=== PATIENT | male | born 1980 | race Caucasian/White ===

== ENCOUNTER 2019-12-29 08:30 | Emergency (ER) | payer OTHER ==
--- NOTE | 2019-12-29 09:30 | RAD REPORT ---
EXAM DESCRIPTION: CT - Head Brain Wo Cont - 12/29/2019 9:15 am CLINICAL HISTORY: headache, htn COMPARISON: No comparisons TECHNIQUE: All CT scans are performed using dose optimization technique as appropriate and may inclu de automated exposure control or mA/KV adjustment according to patient size. FINDINGS: No intracranial hemorrhage, hydrocephalus or extra-axial fluid collection.Areas of increas ed density is seen in the right the anterior sylvian fissure region measuring 7 mm.No areas of brain edema or evidence of midline shift. Basilar artery is atherosclerotic. The paranasal sinuses and mastoids are clear. The calvarium is intact. IMPRESSION: 7 mm area of increased density is noted right anterior sylvian fissure. This could poten tially represent an aneurysm. Recommend MRI brain and MRA [place] of [place] for further workup.
[2019-12-29] MEDS ORDERED: HYDRALAZINE HCL 20 MG/ML VIAL ONE (09:33)
--- NOTE | 2019-12-29 09:56 | RAD REPORT ---
EXAM DESCRIPTION: RAD - Chest Single View - 12/29/2019 9:33 am CLINICAL HISTORY: posey, hypertensive Chest pain. COMPARISON: No comparisons FINDINGS: Portable technique limits examination quality. The lungs are grossly clear. The heart is normal in size. No displaced fractures. IMPRESSION: No acute intrathoracic process suspected.
[2019-12-29 10:12] LABS: Absolute Lymphocytes (CBC) 1.8 K/uL (0.7-4.9); Basophils % 0.6 % (0-1.3); Hematocrit 43.5 % (39.6-49.0); Lymphocytes % 20.7 % (15.3-44.8); MPV 9.2 fL (7.6-11.3); Protime INR 0.9; RBC Red Blood Cell Count 5.12 M/uL (4.33-5.43)
[2019-12-29 10:13] LABS: ALT/SGPT 47 U/L (12-78); AST/SGOT 26 U/L (15-37); Albumin 4.1 g/dL (3.4-5.0); Alkaline Phosphatase 119 U/L (45-117); BUN Blood Urea Nitrogen 11 mg/dL (7-18); Bicarbonate 31 mmol/L (21-32); Bilirubin Direct 0.1 mg/dL (0-0.2); Bilirubin Total 0.6 mg/dL (0.2-1.0); Glucose Level 358 mg/dL (74-106); NT PRO-BNP 207 pg/mL (<125); Potassium 3.3 mmol/L (3.5-5.1); Protein, Total 7.9 g/dL (6.4-8.2); Sodium Level 135 mmol/L (136-145); Troponin (Emerg Dept Use Only) < 0.02 ng/mL (0.0-0.045)
[2019-12-29] MEDS ORDERED: cloNIDine HCL 0.1 MG TAB ONE (10:15)
[2019-12-29] MEDS ORDERED: ONDANSETRON 4 MG/2 ML VIAL ONE (11:01)
[2019-12-29] MEDS ORDERED: LABETALOL HCL 100 MG/20 ML ONE (11:04)
[2019-12-29] MEDS ORDERED: FENTANYL CITR 100 MCG/2 ML ONE (11:58)
[2019-12-29] MEDS ORDERED: PROMETHAZINE INJ 25 MG/ML AMP ONE (12:10)
--- NOTE | 2019-12-29 13:06 | ER ---
Nurse's Notes [facility] Name: John Levine Age: 39 yrs Sex: Male : 1980 Arrival Date: 12/29/2019 Time: 08:36 Bed 18 Private MD: Diagnosis: Non traumatic subarachnoid hemorrhage Presentation: 12/28 08:44 Chief complaint: Headache x 5 days. Hx of HTN, has been out of his lisinopril-HCTZ for hb 3 weeks. Coronavirus screen: Client presents with at least one sign or symptom that may indicate coronavirus-19. Standard/surgical mask placed on the client. Provider contacted for isolation considerations. Ebola Screen: No symptoms or risks identified at this time. Initial Sepsis Screen: Does the patient meet any 2 criteria? HR > 90 bpm. No. Patient's initial sepsis screen is negative. Does the patient have a suspected source of infection? No. Patient's initial sepsis screen is negative. Risk Assessment: Do you want to hurt yourself or someone else? Patient reports no desire to harm self or others. Onset of symptoms was December 23, 2019. 08:44 Method Of Arrival: Ambulatory hb 08:44 Acuity: [place] 2 hb Triage Assessment: 13:52 Headache History: Other Patient states has had hypertension since high school; "gets vg1 h/a every now and then". Historical: - Allergies: 08:47 No Known Allergies; hb - Home Meds: 08:47 lisinopril-hctz [Active]; hb - PMHx: 08:47 Hypertension; hb - PSHx: 08:47 None; hb - Immunization history:: Adult Immunizations up to date. - Social history:: Smoking status: Patient denies any tobacco usage or history of. Screenin:30 Abuse screen: Denies threats or abuse. Nutritional screening: No deficits noted. vg1 Tuberculosis screening: No symptoms or risk factors identified. Fall Risk No fall in past 12 months (0 pts). No secondary diagnosis (0 pts). IV access (20 points). Ambulatory Aid- None/Bed Rest/Nurse Assist (0 pts). Gait- Normal/Bed Rest/Wheelchair (0 pts) Mental Status- Oriented to own ability (0 pts). Total Brandt Fall Scale indicates No Risk (0-24 pts). Assessment: 09:30 General: Appears comfortable, Behavior is calm, cooperative. Pain: Complains of pain in vg1 head Pain currently is 10 out of 10 on a pain scale. Pain began 2-3 days ago. Neuro: Level of Consciousness is awake, alert, obeys commands, Oriented to person, place, time, situation. Cardiovascular: Capillary refill < 3 seconds in bilateral fingers Patient's skin is warm and dry. Respiratory: Airway is patent Respiratory effort is even, unlabored, Respiratory pattern is regular, symmetrical. GI: No signs and/or symptoms were reported involving the gastrointestinal system. GI: No signs and/or symptoms were reported involving the gastrointestinal system. Reports nausea. : No signs and/or symptoms were reported regarding the genitourinary system. EENT: No signs and/or symptoms were reported regarding the EENT system. Derm: Skin is pink, warm \\T\\ dry. Musculoskeletal: Range of motion: intact in all extremities. 10:29 Reassessment: Patient and/or family updated on plan of care and expected duration. Pain vg1 level reassessed. Patient is alert, oriented x 3, equal unlabored respirations, skin warm/dry/pink. Patient rates h/a 10/10. States cant lay head down because of the pain. States the back of the head hurts 'really bad'. Notified Ky ARGUETA. 10:40 Reassessment: Received verbal orders from Ky ARGUETA for Zofran 4mg IVP x 1. vg1 11:05 Reassessment: Notified acid blower of patients BP, asked to monitor patient. vg1 11:50 Reassessment: pt actively vomiting in MRI, provider notified, received new medication em orders. 12:43 Reassessment: Patient appears in no apparent distress at this time. Patient and/or vg1 family updated on plan of care and expected duration. Pain level reassessed. Patient is alert, oriented x 3, equal unlabored respirations, skin warm/dry/pink. Patient rates pain 3/10; states 'feels a little better'. Notified Ky ARGUETA of patients BP of 208/129. 13:47 Reassessment: Report was give to Payal BENITEZ at [facility]. Pt will be going vg1 to 7 [facility] 4 bed 10. 13:48 Reassessment: Patient appears in no apparent distress at this time. Patient and/or vg1 family updated on plan of care and expected duration. Pain level reassessed. Patient is alert, oriented x 3, equal unlabored respirations, skin warm/dry/pink. In bed resting with eyes closed. Patient rates pain 2/10. Notified patient that life flight will be here soon. 14:04 Reassessment: Gave report to [facility] life flight. 1 Vital Signs: 08:44 BP 247 / 140; Pulse 95; Resp 16; Temp 97.7; Pulse Ox 98% on R/A; Pain 10/10; hb 09:35 BP 225 / 145; Pulse 91; Resp 20; Pulse Ox 98% on R/A; Pain 10/10; vg1 09:45 BP 206 / 146; Pulse 97; vg1 09:45 BP 206 / 146; Pulse 89; Resp 20; Pulse Ox 97% on R/A; vg1 10:07 BP 229 / 130; Pulse 97; Resp 20; Pulse Ox 97% on R/A; vg1 10:29 BP 207 / 120; Pulse 101; Resp 20; Pulse Ox 99% on R/A; vg1 11:06 BP 187 / 113; Pulse 99; Resp 99; Pulse Ox 96% on R/A; em 12:45 BP 208 / 129; Pulse 87; Resp 20; Pulse Ox 97% on R/A; Pain 3/10; vg1 13:06 BP 190 / 115; Pulse 107; Resp 22; Pulse Ox 99% on R/A; em 13:11 BP 203 / 125; Pulse 112; Resp 20; Pulse Ox 98% on R/A; em 13:15 BP 184 / 119; Pulse 130; Resp 20; Pulse Ox 97% on R/A; em 13:17 BP 185 / 125; Pulse 126; Resp 20; Pulse Ox 97% on R/A; em 13:19 BP 205 / 115; Pulse 128; Resp 20; Pulse Ox 96% on R/A; em 13:22 BP 200 / 110; Pulse 130; Resp 20; Pulse Ox 100% on R/A; em 13:25 BP 196 / 109; Pulse 127; Resp 20; Pulse Ox 97% on R/A; em 13:32 BP 171 / 105; Pulse 132; Resp 20; Pulse Ox 96% on R/A; em 13:45 BP 194 / 95; Pulse 130; Resp 20; Pulse Ox 100% on R/A; vg1 10:07 [address] Ky ARGUETA about increase in patients BP vg1 ED Course: 08:36 Patient arrived in ED. rg4 08:46 Triage completed. hb 08:47 Arm band placed on. hb 08:57 Ky Pretty PA is PHCP. [facility] 08:57 Marcio Marquis MD is Attending Physician. [facility] 09:09 Patrica Isabel, RN is Primary Nurse. vg1 09:[address] via wheelchair. vg1 09:14 CT completed. Patient tolerated procedure well. Patient moved back from CT. sw 09:16 CT Head Brain wo Cont In Process Unspecified. EDMS 09:30 Patient has correct armband on for positive identification. groundwater monitoring technician on. Pulse vg1 ox on. NIBP on. Door closed. Lights dimmed. 09:33 XRAY Chest (1 view) In Process Unspecified. EDMS 09:35 Inserted saline lock: 20 gauge in right antecubital area, using aseptic technique. vg1 Blood collected. 09:35 Initial lab(s) drawn, by ma, sent to lab. vg1 09:47 EKG done, by ED staff, reviewed by Ky ARGUETA. em 11:05 Patient moved to MRI via wheelchair. vg1 11:34 MRI - Brain Wo Cont In Process Unspecified. EDMS 12:21 Sup. Sag. Sinus In Process Unspecified. EDMS 12:37 Patient moved back from radiology. vg1 12:55 initiated transfer to [facility]. bd 13:10 Inserted saline lock: 20 gauge in left antecubital area, using aseptic technique. em 13:27 ct and mri will be sent electronically by the radiology dept. bd 13:47 pt accepted in transfer to [facility] by dr padilla, admin approval given by vanessa Rushing. 13:52 No provider procedures requiring assistance completed. vg1 14:06 Patient transferred, IV remains in place. intact, No redness/swelling at site. vg1 Administered Medications: 09:35 Drug: hydrALAZINE 10 mg Route: IV; Rate: calculated rate; Site: right antecubital; vg1 09:45 Follow up: BP 206 / 146; Pulse 97 bpm; Response: No adverse reaction; Blood pressure is vg1 lowered 14:08 Follow up: IV Status: Completed infusion vg1 10:00 Drug: cloNIDine 0.1 mg Route: PO; vg1 13:28 Follow up: Response: No adverse reaction; Blood pressure is unchanged em 13:29 Follow up: Response: No adverse reaction; Blood pressure is unchanged em 11:00 Drug: Labetalol 10 mg Route: IVP; Site: right antecubital; em 13:30 Follow up: Response: No adverse reaction; Blood pressure is unchanged em 11:00 Drug: Zofran (Ondansetron) 4 mg Route: IVP; Site: right antecubital; em 13:30 Follow up: Response: No adverse reaction; Nausea is decreased em 11:48 Drug: fentaNYL (PF) 75 mcg Route: IVP; Site: right antecubital; em 12:07 Follow up: Response: No adverse reaction; Marked relief of symptoms; Pain is decreased; em RASS: Alert and Calm (0) 12:02 Drug: Promethazine 12.5 mg Route: IVP; Site: right antecubital; em 12:07 Follow up: Response: No adverse reaction; Marked relief of symptoms; Nausea is increasedem 13:11 Drug: Cardene 5 mg/hr Route: IV; Rate: calculated rate; Site: right antecubital; em 14:07 Follow up: Response: Blood pressure is lowered; IV Status: Infusion continued upon vg1 transfer 13:22 Not Given (Physician Discretion): Labetalol 10 mg IVP once em 13:27 Drug: NS 0.9% 500 ml Route: IV; Rate: bolus; Site: left antecubital; em 14:06 Follow up: Response: No adverse reaction; IV Status: Completed infusion; IV Intake: vg1 500ml Intake: 14:06 IV: 500ml; Total: 500ml. vg1 Outcome: 13:05 ER care complete, transfer ordered by MD. curtis 14:05 Transferred by helicopter to [facility], Transfer form completed. vg1 X-rays sent w/ patient. 14:05 Condition: stable 14:05 Instructed on the need for transfer, Demonstrated understanding of instructions. 14:08 Patient left the ED. vg1 Signatures: Dispatcher [employer] EDMS Diamond Chao Joel, PA PA jmm Munoz, Edgar, RN RN em Geetha Faust Heather, RN RN hb Chalo, Yadi rg4 Patrica Isabel RN RN vg1 Corrections: (The following items were deleted from the chart) 08:48 08:44 Acuity: [place] 3 hb hb 11:22 11:08 Reassessment: Received verbal orders from Ky ARGUETA for Zofran. vg1 vg1 12:36 10:40 Reassessment: Received verbal orders from Ky ARGUETA for Zofran. vg1 vg1 12:45 12:36 BP 131 / 103; Pulse 108bpm; Resp 16bpm; Pulse Ox 100% RA; vg1 vg1 12:46 12:43 Reassessment: Patient appears in no apparent distress at this time. Patient vg1 and/or family updated on plan of care and expected duration. Pain level reassessed. Patient is alert, oriented x 3, equal unlabored respirations, skin warm/dry/pink. Patient rates pain 3/10; states 'feels a little better'. Notified Ky ARGUETA of patients BP of 208/129 vg1
--- NOTE | 2019-12-29 13:06 | EDPHYS ---
Physician Documentation [facility] Name: John Levine Age: 39 yrs Sex: Male : 1980 Arrival Date: 12/29/2019 Time: 08:36 Bed 18 Private MD: ED Physician Marcio Marquis HPI: 12/28 09:11 This 39 yrs old Male presents to ER via Ambulatory with complaints of jmm Headache. 09:11 The patient complains of pain to the right frontal area, right side of the back of jmm head, right temporal area, right occipital area and right base of the skull. Onset: The symptoms/episode began/occurred gradually, 5 day(s) ago. Associated signs and symptoms: Pertinent negatives: fever. This is a 39 year old male with a history of htn that presents to the ED with complaints of right sided headache beginning 5 days ago after the patient states he experienced a panic attack. Patient has not taken his bp medications for 3 weeks due to cancelled appt. Denies chest pain, shortness of breath. . Historical: - Allergies: 08:47 No Known Allergies; hb - Home Meds: 08:47 lisinopril-hctz [Active]; hb - PMHx: 08:47 Hypertension; hb - PSHx: 08:47 None; hb - Immunization history:: Adult Immunizations up to date. - Social history:: Smoking status: Patient denies any tobacco usage or history of. ROS: 09:11 Constitutional: Negative for fever, chills, and weight loss, Respiratory: Negative for jmm shortness of breath, cough, wheezing, and pleuritic chest pain, Abdomen/GI: Negative for abdominal pain, nausea, vomiting, diarrhea, and constipation. 09:11 Cardiovascular: Positive for palpitations. 09:11 Neuro: Positive for headache. 09:11 All other systems are negative. Exam: 09:11 Constitutional: This is a well developed, well nourished patient who is awake, alert, jmm and in no acute distress. Head/Face: atraumatic. Eyes: EOMI, no conjunctival erythema appreciated ENT: Moist Mucus Membranes Neck: Trachea midline, Supple Chest/axilla: Normal chest wall appearance and motion. Cardiovascular: Regular rate and rhythm. No edema appreciated Respiratory: Normal respirations, no respiratory distress appreciated Abdomen/GI: Non distended, soft Back: Normal ROM Skin: General appearance color normal MS/ Extremity: Moves all extremities, no obvious deformities appreciated, no edema noted to the lower extremities Neuro: Awake and alert, normal gait Psych: Behavior is normal, Mood is normal, Patient is cooperative and pleasant 09:51 ECG was reviewed by the Attending Physician. [facility] Vital Signs: 08:44 BP 247 / 140; Pulse 95; Resp 16; Temp 97.7; Pulse Ox 98% on R/A; Pain 10/10; hb 09:35 BP 225 / 145; Pulse 91; Resp 20; Pulse Ox 98% on R/A; Pain 10/10; vg1 09:45 BP 206 / 146; Pulse 97; vg1 09:45 BP 206 / 146; Pulse 89; Resp 20; Pulse Ox 97% on R/A; vg1 10:07 BP 229 / 130; Pulse 97; Resp 20; Pulse Ox 97% on R/A; vg1 10:29 BP 207 / 120; Pulse 101; Resp 20; Pulse Ox 99% on R/A; vg1 11:06 BP 187 / 113; Pulse 99; Resp 99; Pulse Ox 96% on R/A; em 12:45 BP 208 / 129; Pulse 87; Resp 20; Pulse Ox 97% on R/A; Pain 3/10; vg1 13:06 BP 190 / 115; Pulse 107; Resp 22; Pulse Ox 99% on R/A; em 13:11 BP 203 / 125; Pulse 112; Resp 20; Pulse Ox 98% on R/A; em 13:15 BP 184 / 119; Pulse 130; Resp 20; Pulse Ox 97% on R/A; em 13:17 BP 185 / 125; Pulse 126; Resp 20; Pulse Ox 97% on R/A; em 13:19 BP 205 / 115; Pulse 128; Resp 20; Pulse Ox 96% on R/A; em 13:22 BP 200 / 110; Pulse 130; Resp 20; Pulse Ox 100% on R/A; em 13:25 BP 196 / 109; Pulse 127; Resp 20; Pulse Ox 97% on R/A; em 13:32 BP 171 / 105; Pulse 132; Resp 20; Pulse Ox 96% on R/A; em 13:45 BP 194 / 95; Pulse 130; Resp 20; Pulse Ox 100% on R/A; vg1 10:07 [address] Ky ARGUETA about increase in patients BP vg1 MDM: 09:01 Patient medically screened. [facility] 13:03 Data reviewed: vital signs, nurses notes. Counseling: I had a detailed discussion with [facility] the patient and/or guardian regarding: the historical points, exam findings, and any diagnostic results supporting the discharge/admit diagnosis, lab results, radiology results, the need to transfer to another facility. ED course: I discussed the patient with Dr. Soto whom accepted transfer. . 12/28 09:02 Order name: Basic Metabolic Panel; Complete Time: 10:14 [facility] 12/28 09:02 Order name: CBC with Diff; Complete Time: 10:48 [facility] 12/28 09:02 Order name: LFT's; Complete Time: 10:14 [facility] 12/28 09:02 Order name: Magnesium; Complete Time: 10:14 [facility] 12/28 09:02 Order name: NT PRO-BNP; Complete Time: 10:14 [facility] 12/28 09:02 Order name: PT-INR; Complete Time: 10:48 [facility] 12/28 09:02 Order name: Troponin (emerg Dept Use Only); Complete Time: 10:14 [facility] 12/28 09:02 Order name: XRAY Chest (1 view); Complete Time: 09:59 [facility] 12/28 09:03 Order name: CT Head Brain wo Cont; Complete Time: 09:37 [facility] 12/28 09:42 Order name: MRI - Brain Wo Cont; Complete Time: 13:19 [facility] 12/28 13:01 Order name: Urine Drug Screen; Complete Time: 13:45 [facility] 12/28 13:01 Order name: COVID-19 [facility] 12/28 13:32 Order name: Urine Dipstick--Ancillary (enter results); Complete Time: 13:45 12/28 09:02 Order name: EKG; Complete Time: 09:03 [facility] 12/28 09:02 Order name: Cardiac monitoring; Complete Time: 09:50 [facility] 12/28 09:02 Order name: EKG - Nurse/Tech; Complete Time: 09:50 [facility] 12/28 09:02 Order name: IV Saline Lock; Complete Time: 09:44 [facility] 12/28 12:06 Order name: Sup. Sag. Sinus; Complete Time: 13:19 [facility] 12/28 09:02 Order name: Labs collected and sent; Complete Time: : jmm 12/28 09:02 Order name: O2 Per Protocol; Complete Time: jmm 12/28 09:02 Order name: O2 Sat Monitoring; Complete Time: jmm EC:51 Rate is 92 beats/min. Rhythm is regular. QRS [place] is Normal. [place] interval is normal. QRS jmm interval is normal. QT interval is normal. No Q waves. T waves are Flattened in lead III. No ST changes noted. Reviewed by me. Administered Medications: 09:35 Drug: hydrALAZINE 10 mg Route: IV; Rate: calculated rate; Site: right antecubital; vg1 09:45 Follow up: BP 206 / 146; Pulse 97 bpm; Response: No adverse reaction; Blood pressure is vg1 lowered 14:08 Follow up: IV Status: Completed infusion vg1 10:00 Drug: cloNIDine 0.1 mg Route: PO; vg1 13:28 Follow up: Response: No adverse reaction; Blood pressure is unchanged em 13:29 Follow up: Response: No adverse reaction; Blood pressure is unchanged em 11:00 Drug: Labetalol 10 mg Route: IVP; Site: right antecubital; em 13:30 Follow up: Response: No adverse reaction; Blood pressure is unchanged em 11:00 Drug: Zofran (Ondansetron) 4 mg Route: IVP; Site: right antecubital; em 13:30 Follow up: Response: No adverse reaction; Nausea is decreased em 11:48 Drug: fentaNYL (PF) 75 mcg Route: IVP; Site: right antecubital; em 12:07 Follow up: Response: No adverse reaction; Marked relief of symptoms; Pain is decreased; em RASS: Alert and Calm (0) 12:02 Drug: Promethazine 12.5 mg Route: IVP; Site: right antecubital; em 12:07 Follow up: Response: No adverse reaction; Marked relief of symptoms; Nausea is increasedem 13:11 Drug: Cardene 5 mg/hr Route: IV; Rate: calculated rate; Site: right antecubital; em 14:07 Follow up: Response: Blood pressure is lowered; IV Status: Infusion continued upon vg1 transfer 13:22 Not Given (Physician Discretion): Labetalol 10 mg IVP once em 13:27 Drug: NS 0.9% 500 ml Route: IV; Rate: bolus; Site: left antecubital; em 14:06 Follow up: Response: No adverse reaction; IV Status: Completed infusion; IV Intake: vg1 500ml Disposition: 15:20 Co-signature as Attending Physician, Marcio Marquis MD I agree with the assessment and kdr plan of care. Disposition: 12/29/19 13:[address] [facility]. Diagnosis is Non traumatic subarachnoid hemorrhage. - Reason for transfer: Higher level of care. - Accepting physician is Charles. - Condition is Stable. - Problem is new. - Symptoms are unchanged. Signatures: Dispatcher [employer] EDKS Marcio Marquis MD MD [facility] Ky Pretty PA PA [facility] Paul Fitzgerald, RN RN Lianna Serna, RN RN Patrica Jeffries, RN RN vg1 Corrections: (The following items were deleted from the chart) 12:05 11:56 Brain Wo Cont+MRI.RAD.BRZ ordered. [facility] 14:08 13:05 12/29/2019 13:[address] [facility]. vg1 Diagnosis is Non traumatic subarachnoid hemorrhage. Reason for transfer: Higher level of care. Accepting physician is Charles. Condition is Stable. Problem is new. Symptoms are unchanged. [facility]
--- NOTE | 2019-12-29 13:07 | RAD REPORT ---
EXAM DESCRIPTION: MRI - Brain Wo Cont - 12/29/2019 12:21 pm CLINICAL HISTORY: Headache COMPARISON: Head CT December 29, 2019 TECHNIQUE: Axial, sagittal, and coronal magnetic images of the brain were obtained. Contrast was not requested FINDINGS: Images are degraded by patient motion artifact A a small areas of curvilinear signal are present within the sulci of the right temporal and right pa rietal lobes. These areas have increased signal on T1 weighted sequences compatible with subarachnoid blood. . Increased signal is present within the right cerebral cortical veins A 7 millimeter area of heterogeneous signal is present within the anterior right temporal lobe. It co ntains areas of low signal on T2 weighted sequences. Diffusion-weighted/ADC mapping does not reveal evidence of acute infarction. The ventricles are normal caliber. IMPRESSION: Increased signal within the right cerebral cortical veins likely indicating thrombus 7 millimeter area of abnormal signal within the right temporal lobe may represent a partially thrombo sed vein. Other considerations include cavernous angioma and partially thrombosed aneurysm/AVM Small amount of right cerebral subarachnoid blood The exam was discussed with Ky in the Emergency Room at 12:44 p.m. December 29, 2019
[2019-12-29] MEDS ORDERED: Nicardipine/NS 25 MG/250 ML KIT IV ONE (13:11)
--- NOTE | 2019-12-29 13:13 | RAD REPORT ---
EXAM DESCRIPTION: MRI - Sup. Sag. Sinus - 12/29/2019 12:34 pm CLINICAL HISTORY: Headache COMPARISON: MRI brain December 29, 2019 TECHNIQUE: Magnetic resonance angiogram of the brain performed 3D MIPS reconstruction performed FINDINGS: The superior sagittal, inferior sagittal, straight sinus, transverse sinus and sigmoid sin us veins are patent There is asymmetric signal within the right cerebral cortical veins when compared to the left . IMPRESSION: Asymmetric signal within the right cerebral cortical veins. Given that the MRI brain on the same date demonstrated increased signal within some of the right cerebral cortical veins this pro bably indicates thrombus
[2019-12-29 13:33] LABS: Barbiturates NEGATIVE (NEGATIVE); Benzodiazepines NEGATIVE (NEGATIVE); Cocaine NEGATIVE (NEGATIVE); METHAMPHETAM NEGATIVE (NEGATIVE); Methadone NEGATIVE (NEGATIVE); Opiates NEGATIVE (NEGATIVE); Phencyclidine NEGATIVE (NEGATIVE); THC Cannibis NEGATIVE (NEGATIVE)
[2019-12-29] MEDS ORDERED: NA CHLORIDE 0.9% 500 ML ONE (13:37)
[2019-12-29 13:43] LABS: Urine Blood NEGATIVE (NEG); Urine Glucose 2+ (NEG); Urine Protein 1+ (NEG)
[2019-12-29 15:32] VITALS: TEMP 97.7
[2019-12-29 16:00] VITALS: BP 194/95; O2SAT 100
--- NOTE | 2020-01-01 07:51 | EKG ---
Test Date: 2019-12-29 Test Time: 09:47:13 Signals Intelligence Analyst: LEANNE MEASUREMENT RESULTS: Intervals: Rate: 92 TN: 130 QRSD: 98 QT: 364 QTc: 450 [place]: P: 11 TN: 130 QRS: -1 T: 38 INTERPRETIVE STATEMENTS: Normal sinus rhythm Moderate voltage criteria for LVH, may be normal variant Borderline ECG No previous ECG available for comparison Electronically Signed On 01-01-20 07:42:13 FINANCIAL SERVICES PROFESSIONAL by Tre Quan
== END 2019-12-29 14:08 | disposition short-term general hospital (02) ==
LOC: ER 08:30
DX: I60.9 Nontraumatic subarachnoid hemorrhage, unspecified (principal); I10 Essential (primary) hypertension
CPT/HCPCS: 96365; 93005; 85025; 80048; 36415; 83735; 85610; 80076; 80307 ×8; 81003; 84484; 83880; 70450; 71045; 70551; 70544; 96375; 99285; 96366; J0360; J2550; J3010; J7040; J2405

== ENCOUNTER 2020-04-29 07:03 | Emergency (ER) | payer OTHER ==
--- OUTSIDE RECORDS SUMMARY | 2020-04-29 07:08 | XMS REPORT | Continuity of Care Document ---
:1980 Author Organization [facility] t Address [address] [place] [address] Care Team Providers Name Role Phone Darcy Minaya MD Attending Clinician Unavailable Helena SWARTZ, I. Attending Clinician Kirstin Giang MD Attending Clinician Virtual Attending Clinician Unavailable Pito SWARTZ, Joseph Attending Clinician Sherley SWARTZ, Tesha Attending Clinician DARCY MINAYA Attending Clinician Unavailable DARCY MINAYA Admitting Clinician Unavailable Payers Payer Name Policy Type Policy Number Effective Date Expiration Date S clotilde OTHER-COMMERC [id number] [facility] - IALGENERIC 00:00:00 [facility] Center COMMERCIALxxx [id number]- Present Problems Condition Condition Condition Status Onset Resolution Last Treating Co mments Source Name Details Category Date Date Treatment Clinician Date Acute Acute Disease Active 2019-[address] [facility] encephalop encephalop 03-02 Nicole kes - athy athy 00:00: Medical 00 Center Uncontroll Uncontroll Disease Active 2019-[address] ed type 2 ed type 2 03-01 Nicoleke s - diabetes diabetes 00:00: Medica l mellitus mellitus 00 Center with with hyperglyce hyperglyce roberto roberto Hypertensi Hypertensi Disease Active 2019-[address] ve ve 02-28 Jensen - emergency emergency 00:00: Medi yris 00 Center Cerebral Cerebral Disease Active 2019-02 [facility]28 [facility] Center Hyponatrem Hyponatrem Disease Active 2019-[address] ia ia 1-13 [facility] - 00:[facility]: Medical 00 Center Headache Headache Disease Active 2019-02 [facility]28 [facility] - 00:00: Medical 00 [place] Subarachno Subarachno Disease Active 2019- C JOSÉ MIGUEL Max id id 02-27 [facility] - hematoma hematoma 00:00: Medica 00 [place] Seizure Seizure Disease Active [facility] Medical [place] Allergies, Adverse Reactions, Alerts This patient has no known allergies or adverse reactions. Social History Social Habit Start Date Stop Date Quantity Comments Source History [facility] Alcohol Std Drinks [facility] History [facility] - Alcohol Binge Medical Marciano ter Sex Assigned At [facility] kes [facility] Tobacco use and 2020-01-02 2020-01-[address] Nicole kes - exposure 00:00:00 00:00:00 [facility] Alcohol intake 2020-01-02 2020-01-[address] [facility] - 00:00:00 00:00:00 non-drinker Medical Cente r (finding) History [facility] 2019-12-29 2019-12-[address] [facility] - Alcohol Frequency 00:00:00 00:00:00 [facility] Center History [facility] 2019-12-29 2019-12-[address] [facility] - Financial 00:00:00 00:00:00 [facility] Center History [facility] Food 2019-12-29 2019-12-[address] [facility] - Worry 00:00:00 00:00:00 [facility] Center History [facility] Food 2019-12-29 2019-12-[address] [facility] - Scarcity 00:00:00 00:00:00 Medical Center History [facility] 2019-12-29 2019-12-[address] [facility] - Transport Med 00:00:00 00:00:[address] History [facility] 2019-12-29 2019-12-[address] [facility] - Transport Non-Med 00:00:00 00:00:00 Medical Center Smoking Status Start Date Stop Date Source Never smoker [facility] kes M edical Center Medications Ordered Filled Start Stop Current Ordering Indication Dosage Frequency Signature Comments Components Source Medication Medication Date Date Medication? Clinician (SIG) Name Name lisinopriL 2019-02- No 40mg QD Take [address] (PRINIVIL,Z 03-09 tablet (40 L ukes - ESTRIL) 40 00:00: 23:59 mg total) M edical MG tablet 00 :00 by mouth Center daily. NIFEdipine 2019-02 No 30mg QD Take [address] [facility] [address] (ADALAT CC) 03-09 tablet (30 L ukes - 30 MG 24 hr 00:00: 23:59 mg total) Medical tablet 00 :00 by mouth Center daily. lisinopril- 2019-02 No hypertensio 1{tbl} QD Take [address] hydroCHLORO 03-08 n tablet by Nicole kes - thiazide 09:53: 00:00 mouth Medical (PRINZIDE,Z 53 :00 daily Center ESTORETIC) Patient 10-12.5 mg stated he per tablet last took medication 3 weeks ago. Unsure of exact date. . insulin 2019-02 Yes 10U Q.5D Inject 10 [facility] glargine - Units [facility] - (Lantus 00:00: subcutaneo Medi yris Solostar 00 usly 2 Center U-100 (two) Insulin) times 100 unit/mL daily. (3 mL) InPn needles, 2019-02 Yes 1{each} Q.5D [address] [facility] insulin 03-08 Miscellane [facility] - disposable 00:00: ous route Me dical (Insulin 00 2 (two) Center Pen times Western) daily. Ndle lancets 2019-02 Yes Use to [facility] Misc 03-08 check [facility] - 00:00: blood Medical 00 sugar 3 Center times per day. blood sugar 2019-02 Yes 1{each} Q.[id number] 1 each by [facility] diagnostic 03-08 [id number] [facility]ellane [facility] - (glucose 00:00: 3D ous route Medi yris blood) Strp 00 3 (three) Marciano ter times daily To check blood sugar. carvediloL 2019-02 No 25mg Q.5D Take [address] [facility] [address] (COREG) 25 03-08 tablet (25 Nicole kes - MG tablet 00:00: 23:59 mg total) Me dical 00 :00 by mouth 2 Center (two) times daily. hydrALAZINE 2019-02 No 50mg Take 1 [facility] (APRESOLINE 03-08 tablet (50 L ukes - ) 50 MG 00:00: 23:59 mg total) Medi yris tablet 00 :00 by mouth Center every 8 (eight) hours. valproic 2019-02- No 1000mg Take 4 [facility] acid 03-08 capsules [facility] - (DEPAKENE) 00:00: 23:59 (1,000 mg M edical 250 mg 00 :00 total) by Center capsule mouth every 12 (twelve) hours. blood-gluco 2019-02- No Use as [facility] St se meter 03-08 instructed Luke s - kit 00:00: 23:59 . Medical 00 :00 [place] Vital Signs Vital Name Observation Time Observation Value Comments Source Systolic blood 2020-01-07 12:00:00 116 mm[Hg] [facility] pressure [facility] Diastolic blood 2020-01-07 12:00:00 65 mm[Hg] [facility] Heart rate 2020-01-07 12:00:00 76 /min [facility] Body temperature 2020-01-07 12:00:00 36.33 Mary Kate [facility] Respiratory rate 2020-01-07 12:00:00 19 /min [facility] Oxygen saturation in 2020-01-07 12:00:00 98 /min [facility] Arterial blood by Medical Ce nter Pulse oximetry Body height 2019-12-30 15:08:00 181.6 cm [facility] Body weight 2019-12-29 15:00:00 141.7 kg [facility] BMI 2019-12-29 15:00:00 42.96 kg/m2 [facility] Procedures Procedure Date / Time Performing Clinician Source Performed POCT-GLUCOSE METER 2020-01-07 11:47:00 Lazara Giang [facility] POCT-GLUCOSE METER 2020-01-07 07:54:00 Lazara Giang [facility] BASIC METABOLIC PANEL (7) 2020-01-07 04:48:00 Sirena Mccann CH I [facility] CBC W/PLT COUNT & AUTO 2020-01-07 04:48:00 Sirena Mccann [facility] S [facility] DIFFERENTIAL [facility] MAGNESIUM 2020-01-07 04:48:00 MccannSirena [facility] PHOSPHORUS 2020-01-07 04:48:00 MccannSirena [facility] POCT-GLUCOSE METER 2020-01-06 21:04:00 Rahat [facility] POCT-GLUCOSE METER 2020-01-06 16:55:00 Rahat, [facility] POCT-GLUCOSE METER 2020-01-06 11:56:00 Rahat, [facility] POCT-GLUCOSE METER 2020-01-06 08:32:00 Rahat [facility] BASIC METABOLIC PANEL (7) 2020-01-06 05:30:00 Ramy Sirena R CH I [facility] MAGNESIUM 2020-01-06 05:30:00 Ramy Sirena Castillo [facility] PHOSPHORUS 2020-01-06 05:30:00 Ramy Sirena Castillo [facility] CBC W/PLT COUNT & AUTO 2020-01-06 04:35:00 Ramy Sirena Jonathan [facility] S [facility] POCT-GLUCOSE METER 2020-01-05 21:22:00 Milana Minaya [facility] POCT-GLUCOSE METER 2020-01-05 18:41:00 AmbrocioMilana luna [facility] POCT-GLUCOSE METER 2020-01-05 13:12:00 Anatoly Malik I. CH I [facility] LIMITED 2D ECHOCARDIOGRAM 2020-01-05 12:26:00 Kike Rojas CH [facility] [place] CEREBRAL 4 VESSEL 2020-01-05 11:25:00 Ramy Sirena Castillo [facility] POCT-GLUCOSE METER 2020-01-05 07:13:00 Anatoly Malik I. CH I [facility] BASIC METABOLIC PANEL (7) 2020-01-05 04:36:00 Ramy Sirena R [facility] CBC W/PLT COUNT & AUTO 2020-01-05 04:36:00 Sirena Mccann [facility]I S t [facility] MAGNESIUM 2020-01-05 04:36:00 Sirena Mccann [facility] PHOSPHORUS 2020-01-05 04:36:00 Sirena Mccann CHI [facility] POCT-GLUCOSE METER 2020-01-04 21:07:00 Anatoly Malik I. CH I [facility] POCT-GLUCOSE METER 2020-01-04 16:25:00 Anatoly Malik CH I [facility] SARS-COV2/RT-PCR ([facility] & 2020-01-04 15:31:00 Sirena Mccann [facility] REF LABS) [facility] MR BRAIN WITH & WITHOUT IV 2020-01-04 13:46:00 Jin Nicole [facility] POCT-GLUCOSE METER 2020-01-04 11:29:00 Anatoly Malik CH I [facility] POCT-GLUCOSE METER 2020-01-04 07:20:00 Anatoly Malik CH I [facility] BASIC METABOLIC PANEL (7) 2020-01-04 03:50:00 Sirena Mccann CH I [facility] CBC W/PLT COUNT & AUTO 2020-01-04 03:50:00 Sirena Mccann [facility] S [facility] MAGNESIUM 2020-01-04 03:50:00 Sirena Mccann [facility] PHOSPHORUS 2020-01-04 03:50:00 Sirena Mccann [facility] POCT-GLUCOSE METER 2020-01-03 20:57:00 Anatoly Malik I. CH I [facility] METANEPHRINES, 24 HOUR 2020-01-03 16:41:00 Sirena Mccann [facility] POCT-GLUCOSE METER 2020-01-03 16:28:00 Anatoly Malik I. CH I [facility] POCT-GLUCOSE METER 2020-01-03 11:35:00 Anatoly Malik I. CH I [facility] POCT-GLUCOSE METER 2020-01-03 08:16:00 Anatoly Malik CH, I [facility] POCT-GLUCOSE METER 2020-01-03 06:10:00 Anatoly Malik CH I [facility] BASIC METABOLIC PANEL (7) 2020-01-03 03:38:00 Sirena Mccann R CH I [facility] CBC W/PLT COUNT & AUTO 2020-01-03 03:38:00 Sirena Mccann [facility] S t [facility] MAGNESIUM 2020-01-03 03:38:00 Sirena Mccann [facility] PHOSPHORUS 2020-01-03 03:38:00 Sirena Mccann [facility] POCT-GLUCOSE METER 2020-01-02 23:31:00 Anatoly Malik CH I [facility] HC TCD COMPLETE 2020-01-02 18:55:00 Kike Rojas [facility] POCT-GLUCOSE METER 2020-01-02 15:45:00 Milana Minaya [facility] SODIUM 2020-01-02 15:43:00 Isaac Villegas [facility] POTASSIUM 2020-01-02 15:43:00 Kike Rojas [facility] MAGNESIUM 2020-01-02 15:43:00 Kike Rojas [facility] POCT-GLUCOSE METER 2020-01-02 11:39:00 Milana Minaya [facility] EEG 12-26 HR CONTINUOUS 2020-01-02 06:09:00 Delores Uribe [facility] - MONITORING WITH VIDEO Medical Ce nter POCT-GLUCOSE METER 2020-01-02 05:57:00 Milana Minaya [facility] BASIC METABOLIC PANEL (7) 2020-01-02 04:50:00 Sirena Mccann CH [facility] CBC W/PLT COUNT & AUTO 2020-01-02 04:50:00 Sirena Mccann [facility] S t [facility] MAGNESIUM 2020-01-02 04:50:00 Sirena Mccann [facility] PHOSPHORUS 2020-01-02 04:50:00 Sirena Mccann [facility] US RENAL WITH DOPPLER 2020-01-02 04:15:00 Prasanna Mejia [facility] POCT-GLUCOSE METER 2020-01-02 01:31:00 Ambrociojeremy [facility] POCT-GLUCOSE METER 2020-01-01 22:38:00 [facility] POCT-GLUCOSE METER 2020-01-01 16:56:00 [facility] HEPATIC FUNCTION PANEL 2020-01-01 14:17:00 Prasanna Mejia [facility] POCT-GLUCOSE METER 2020-01-01 12:08:[facility] BRAIN WITHOUT IV 2020-01-01 10:12:00 Fei Menezes [facility] POCT-GLUCOSE METER 2020-01-01 06:25:00 Ambrociojeremy [facility] BASIC METABOLIC PANEL (7) 2020-01-01 04:59:00 Sirena Mccann [facility] CBC W/PLT COUNT & AUTO 2020-01-01 04:59:00 Ramy Sirena R [facility] MAGNESIUM 2020-01-01 04:59:00 Ramy Sirena Jonathan [facility] PHOSPHORUS 2020-01-01 04:59:00 Ramy [facility] Jonathan [facility] TSH/FREE T4 IF INDICATED 2020-01-01 04:59:00 Prasanna Mejia [facility] POCT-GLUCOSE METER 2020-01-01 00:38:00 Ambrociojeremy [facility] POCT-GLUCOSE METER 2019-12-31 20:52:00 [facility] HC VENOUS DOPPLER EXT UNI 2019-12-31 20:40:00 Delores Uribe CH I [facility] URINALYSIS WITH 2019-12-31 18:06:00 Prasanna Mejia [facility] - MICROSCOPIC IF INDICATED [facility] URINALYSIS MICROSCOPIC 2019-12-31 18:06:00 Jackie Mims Ubai d [facility] METANEPHRINES 2019-12-31 17:39:00 Prasanna Mejia [facility] CATECHOLAMINES, 2019-12-31 17:39:00 Prasanna Mejia [facility] - FRACTIONATED, PLASMA Medical [address] ter POCT-GLUCOSE METER 2019-12-31 16:21:00 Milana Minaya [facility] POCT-GLUCOSE METER 2019-12-31 11:30:00 Milana Minaya [facility] BASIC METABOLIC PANEL (7) 2019-12-31 08:21:00 Sirena Mccann [facility] CBC W/PLT COUNT & AUTO 2019-12-31 08:21:00 Ramy Sirena [facility] MAGNESIUM 2019-12-31 08:21:00 Ramy [facility] PHOSPHORUS 2019-12-31 08:21:00 Ramy [facility] ALDOSTERONE 2019-12-31 08:21:00 Ramy [facility] RENIN, PLASMA 2019-12-31 08:21:00 [facility]ORT[facility] 2019-12-31 08:21:00 [facility] POCT-GLUCOSE METER 2019-12-31 06:50:00 Rei Milana [facility] POCT-GLUCOSE METER 2019-12-31 02:23:00 Rei [facility] POCT-GLUCOSE METER 2019-12-30 17:08:00 Rei [facility] BASIC METABOLIC PANEL (7) 2019-12-30 15:15:00 Kike Rojas [facility] [place] CEREBRAL 4 VESSEL 2019-12-30 13:55:00 Kike Rojas [facility] ANGIOGRAM [facility] HEMOGLOBIN A1C 2019-12-30 10:11:[address] [facility] POCT-GLUCOSE METER 2019-12-30 07:06:00 Milana Minaya [facility] PROTHROMBIN TIME/INR 2019-12-30 04:01:00 Macario Beckham [facility] APTT 2019-12-30 04:01:00 Macario Beckham [facility] FIBRINOGEN 2019-12-30 04:01:00 Bhavani Ndotoniel Herman [facility] BASIC METABOLIC PANEL (7) 2019-12-30 04:01:00 Sirena Mccann I [facility] CBC W/PLT COUNT & AUTO 2019-12-30 04:01:00 Sirena Mccann [facility] MAGNESIUM 2019-12-30 04:01:00 Sirena Mccann [facility] PHOSPHORUS 2019-12-30 04:01:00 Sirena Mccann [facility] POCT-GLUCOSE METER 2019-12-29 23:26:00 Milana Minaya [facility] ABORH, MANUAL 2019-12-29 19:37:00 Pooja Thompson [facility] XR CHEST 1 VIEW 2019-12-29 18:08:00 Kike Rojas [facility] PORTABLE/BEDSIDE [facility] SARS-COV2/RT-PCR ([facility] & 2019-12-29 18:03:00 Kike Rojas [facility] - REF LABS) [facility] PROTHROMBIN TIME/INR 2019-12-29 18:03:00 Sher Mccann [facility] Medical Ce nter APTT 2019-12-29 18:03:[address] [facility] [place] Medical Ce nter BASIC METABOLIC PANEL (7) 2019-12-29 18:03:00 Sher Mccann, [facility] Medical Ce nter MAGNESIUM 2019-12-29 18:03:00 Sher Mccann, [facility] Medical Ce nter PHOSPHORUS 2019-12-29 18:03:00 Sher Mccann, [facility] Ce nter CBC W/PLT COUNT & AUTO 2019-12-29 18:03:00 Sher Mccann, [facility] - DIFFERENTIAL [facility] nter TYPE AND SCREEN, AUTOMATED 2019-12-29 18:03:00 Sirena Mccann HI [facility] CTA BRAIN 2019-12-29 16:35:00 Sofia [facility] CT/CTA CAROTID 2019-12-29 16:35:00 Sofia [facility] CARDIAC CATH REPORT - SCAN 2019-12-29 00:00:00 Provider, Default [facility] NEUROPHYSIOLOGY REPORT - 2019-12-29 00:00:00 Provider, Default C [facility] Plan of Care Planned Activity Planned Date Details Comments Source Future Scheduled 2020-03-[address] [facility] k[facility] - Test 00:00:00 [facility] (procedure) [code = 46573866] Future Scheduled 2020-02-[address] [facility] - Test 00:00:00 (12+) [code = [facility] Center DEPRESSION SCREENING (12+)] Future Scheduled 2019-10-18 INFLUENZA VACCINE (#1) [facility] - Test 00:00:00 [code = INFLUENZA Medical Ce nter VACCINE (#1)] Future Scheduled [address] [facility] - Test 00:00:00 (procedure) [code = [facility] 57800589] Future Scheduled 2001 DTAP/TDAP/TD VACCINES [facility] - Test 00:00:00 (1 - Tdap) [code = Medical C enter DTAP/TDAP/TD VACCINES (1 - Tdap)] Future Scheduled 2000 HEPATITIS C SCREENING [facility] - Test 00:00:00 [code = HEPATITIS C Medical Center SCREENING] Future Scheduled 1992 Urine screening for [facility] [place] - Test 00:00:00 protein (procedure) Medical Center [code = 662161500] Future Scheduled 1992 DIABETIC EYE EXAM [facility] - Test 00:00:00 [code = DIABETIC EYE Medical Center EXAM] Future Scheduled [address] [facility] - Test 00:00:00 examination Medical Center (regime/therapy) [code = 442550642] Future Scheduled [address] [facility] - Test 00:00:00 0-64 YRS (1 of 1 - Medical C enter PPSV23) [code = PNEUMOCOCCAL VACCINE 0-64 YRS (1 of 1 - PPSV23)] Results Test Description Test Time Test Comments Results Result Comments Source Catecholamines, Fractionated, plasma 2020-01-12 08:17:00 Test Item Value Reference Range Interpretation Comme nts EPINEPHRINE (test code = 58 pg/mL A d ilution of the specimen was ) required to per form the analysis. Speci menquantity insufficient to analyze undiluted. This test was developed and i ts analytical performance kamila racteristics havebeen determ ined by [facility].It has not been cleared or approved by FDA. This assay has been validatedpursua nt to the CLIA regulations and is used for clinical purpos es. Norepinephrine (test code = 733 pg/mL A dilution of the specimen was ) required to per form the analysis. Speci menquantity insufficient to analyze undiluted. This test was developed and i ts analytical performance kamila racteristics havebeen determ ined by [facility].It has not been cleared or approved by FDA. This assay has been validatedpursua nt to the CLIA regulations and is used for clinical purpos es. DOPAMINE (test code = 45 pg/mL H A dilu tion of the specimen was ) required to per form the analysis. Speci menquantity insufficient to analyze undiluted. This test was developed and i ts analytical performance kamila racteristics havebeen determ ined by [facility].It has not been cleared or approved by FDA. This assay has been validatedpursua nt to the CLIA regulations and is used for clinical purpos es. Total Catecholamines 836 pg/mL A dilut ion of the specimen was (Nor+Epi) (test code = requi red to perform the 2054-03) analysis. Speci menquantity insufficient to analyze undiluted. Adul t Reference Ranges for Vioeltta cholamines, Plasma Epinephr ine Supine: <50 pg /mL Uprigh t: <95 pg/mL Norepinephrine Supine: 112-658 pg/mL Upright: 21 7-1109 pg/mL Dopamine Supine: <10 pg/mL Upright: <20 pg /mL Total (N+E+D) Supine: 123-671 pg/mL Upright: 24 2-1125 pg/mL Pediatric Refer ence Ranges for Catecholamines, Plasma Due to stress, plasma catecholamine levels are gene rally unreliablein in fants and small children. Urina ry catecholamine a ssays are morereliable. E pinephrine 3-15 Years Supine: < or = 464 pg/mL Upright: N o Reference Range Available Norepinephrine 3-15 Years Supine: < or = 1251 pg/ mL Upright : No Reference Range Available Dopamine 3-15 Years Supine: <60 pg/mL Upright: No Ref erence Range Available Pedia tric data from J [employer] (5 613) 019:304-307. Th is test was developed and i ts analytical performance kamila racteristics havebeen determ ined by [facility].It has not been cleared or approved by FDA. This assay has been validatedpursua nt to the CLIA regulations and is used for clinical purpos es. JACKSON (test code = JACKSON) Performing Lab EZ [facility] [address] [place] [address] Yelena Esquivel MD, PhD, MARCIANO Lab Interpretation (test Abnormal code = 54134-8) [facility] - [id number] 11:47:51 Ordered by an unspecified provider.[facility], ANGIOGRAM, [id number] 09:54:00For 01/04 1000Reason for exam:->subarachnoid hemorrhageAnesthesia:->[facility] : 1980 Sex: MFINAL REPORT Date of Procedure: 01/05/2020 Surgeon: Gerry Lemon BBSAssistant: Kike Rojas MD Pre-operative diagnosis: Subarachnoid hemorrhagePost-operative diagnosis: Subarachnoid hemorrhage Procedure: Diagnostic cerebral angiogram Anesthesiologist: per anesthesia recordsAnesthesia Type: MAC Complications: None apparent Vessel injections:1. Right femoral artery2. Right internal carotid artery3. Left internal carotid artery Indication for procedure: Patient is [id number] man with hypertension and obesity, who presented with several days of headache, found tohave trace sylvian subarachnoid hemorrhage and cortical subarachnoid hemorrhage on the right side. Adiagnostic cerebral angiogram was done on admission which was negative for vascular malformations oraneurysms. He presents today for follow-up diagnostic cerebral angiogram. Procedure in Detail: AngiogramFollowing explanation of the benefits, risks and alternatives for the procedure, informed consentwas obtained from the patient. The risks including but not limited to stroke, intracranial hemorrhag e, vascular injury to the cervical or access vessels were discussed. A time-out was performed. Bothgroins and wrists were prepped in the usual sterile fashion using Chloroprep, and sterilely draped.Access was initiated at the right femoral artery under ultrasound guidance (see medical chart for images) and a 6 Dominican sheath was placed and maintained on heparinized flush. A 6 Dominican angled curve diagnostic catheter was introduced and brought into the aortic arch under fluoroscopic guidance. The diagnostic catheter was used to catheterize the right internal carotid artery, left internal carotid artery, left vertebral artery. Upon each successive selective catheterization, digital subtraction angiography using the appropriate rate and volume of contrast in multiple projections was performed. After adequate visualization of all vessels all sheaths and catheters were removed and a Angio-Seal was used for femoral artery hemostasis. The patient was transported to neuro ICU in stable condition Findings: Right Femoral Artery (AP and Lateral)-The sheath enters above the femoral bifurcation. The femoral artery and bifurcation are widely patent without evidence of ulceration or stenosis. Right Internal Carotid Artery (AP, Lateral, Oblique)-The cervical carotid artery is patent without areas of stenosis, dissection or ulceration; and is without branches -The petrous carotid artery is patent withoutareas of stenosis, dissection or ulceration the mandibulovidian artery is not visualized, no petrosal segment aneurysms -The cavernous carotid artery is patent without areas of stenosis, dissection, orulceration, meningohypophyseal trunk and inferolateral trunks are not visualized, there are no cavernous segment aneurysms -The supraclinoidal carotid artery, the opthalmic, communicating, and choroidal segments are patent without areas of stenosis and without aneurysms. The posterior communicating artery is normal sized, the anterior choroidal artery is visualized. The A1 and M1 segments are visualized and are without stenosis or vasospasm. -The ADY fill physiologically throughout their territory with cross-filling across the anterior communicating artery. There is no noted stenosis or vasospasm noted within its branches. There are no noted aneurysms of the pericallosal or callosomarginal branches. There is no evidence of arteriovenous shunting -The MCA's fill physiologically throughout their territory there is no noted stenosis, occlusion or vasospasm noted within its branches. There is no evidence for aneurysm. There is no evidence of arteriovenous shunting. The capillary phase is normal without areas of malperfusion, the venous phase demonstrates a normal venous draining pattern Left Internal Carotid Artery (AP, Lateral) -The cervical carotid artery is patent without areas of stenosis,dissection or ulceration; and is without branches -The petrous carotid artery is patent without areas of stenosis, dissection or ulceration the mandibulovidian artery is not visualized, no petrosal segment aneurysms -The cavernous carotid artery is patent without areas of stenosis, dissection, or ulceration, meningohypophyseal trunk and inferolateral trunks are not visualized, there are no cavernous segment aneurysms -The supraclinoidal carotid artery, the opthalmic, communicating, and choroidal segments are patent without areas of stenosis and without aneurysms. The posterior communicating arteryis normal sized, the anterior choroidal artery is visualized. The A1 and M1 segments are visualized and are without stenosis or vasospasm. -The ADY fill physiologically throughout their territory with cross- filling across the anterior communicating artery. There is no noted stenosis or vasospasm notedwithin its branches. There are no noted aneurysms of the pericallosal or callosomarginal branches. There is no evidence of arteriovenous shunting -The MCA's fill physiologically throughout their territory there is no noted stenosis, occlusion or vasospasm noted within its branches. There are no noted aneurysms. There is no evidence of arteriovenous shunting. The capillary phase is normal without areas of malperfusion, the venous phase demonstrates a normal venous draining pattern Left Vertebral Artery (Jennifer/Transfacial, Lateral)-The cervical course of the left vertebral artery has a normal course and appearance. Muscular branches arising from the distal segments are visualized. There is no arteriovenous shunting nor vascular malformations. - There is no cross-filling into the right vertebral artery. There is no stenosis or ulceration noted in the vertebral or basilar arteries. PICA, AICA, and superior cerebellar arteries are visualized no evidence of aneurysms at their origins. The functional consultant fill symmetrically, there is no evidence of stenosis or vasospasm. -There is not reflux into the posterior communicating artery. -The capillary phase is normal and in normal venous drainage pattern is noted Summary of Findings 1. Unremarkable intracranial vasculature. No evidence of intracranial aneurysms or other vascular lesions. 2. No clinical or radiographic evidence of complications. Signed: Thomas Pereyra MDReport Verified Date/Time: 01/11/2020 09:54:30 Reading Location: [facility] Y02 Neuro Angio Reading Room NV cerebral 4 vessel [id number] 09:54:00Interface, External Ris In - 01/11/2020 9:56 AM CSTFINAL REPORT Date of Procedure: 01/05/2020 Surgeon: CARLOS A LemonAssistant: Kike Rojas MD Pre-operative diagnosis: Suba rachnoid hemorrhagePost-operative diagnosis: Subarachnoid hemorrhage Procedure: Diagnostic cerebral angiogram Anesthesiologist: per anesthesia recordsAnesthesia Type: MAC Complications: None apparent Vessel injections:1. Right femoral artery2. Right internal carotid artery3. Left internal carotid artery Indication for procedure: Patient is a 39-year-old man with hypertension and obesity, who presented with several days of headache, found to have trace sylvian subarachnoid hemorrhage and cortical subarachnoid hemorrhage on the right side. A diagnostic cerebral angiogram was done on admission which was negative for vascular malformations or aneurysms. He presents today for follow-up diagnostic cerebral angiogram. Procedure in Detail: AngiogramFollowing explanation of the benefits, risks and alternatives for the procedure, informed consent was obtained from the patient. The risks including but notlimited to stroke, intracranial hemorrhage, vascular injury to the cervical or access vessels were discussed. A time-out was performed. Both groins and wrists were prepped in the usual sterile fashionusing Chloroprep, and sterilely draped. Access was initiated at the right femoral artery under ultrasound guidance (see medical chart for images) and a 6 Dominican sheath was placed and maintained on heparinized flush. A 6 Dominican angled curve diagnostic catheter was introduced and brought into the aortic arch under fluoroscopic guidance. The diagnostic catheter was used to catheterize the right internal carotid artery, left internal carotid artery, left vertebral artery. Upon each successive selectivecatheterization, digital subtraction angiography using the appropriate rate and volume of contrast in multiple projections was performed. After adequate visualization of all vessels all sheaths and catheters were removed and a Angio-Seal was used for femoral artery hemostasis. The patient was transported to neuro ICU in stable condition Findings: Right Femoral Artery (AP and Lateral)-The sheath enters above the femoral bifurcation. The femoral artery and bifurcation are widely patent without evidence of ulceration or stenosis. Right Internal Carotid Artery (AP, Lateral, Oblique)-The cervical carotid artery is patent without areas of stenosis, dissection or ulceration; and is without branches -Thepetrous carotid artery is patent without areas of stenosis, dissection or ulceration the mandibulovidian artery is not visualized, no petrosal segment aneurysms -The cavernous carotid artery is patent without areas of stenosis, dissection, or ulceration, meningohypophyseal trunk and inferolateral trunks are not visualized, there are no cavernous segment aneurysms -The supraclinoidal carotid artery, the opthalmic, communicating, and choroidal segments are patent without areas of stenosis and withoutaneurysms. The posterior communicating artery is normal sized, the anterior choroidal artery is visualized. The A1 and M1 segments are visualized and are without stenosis or vasospasm. -The ADY fill physiologically throughout their territory with cross-filling across the anterior communicating artery.There is no noted stenosis or vasospasm noted within its branches. There are no noted aneurysms of the pericallosal or callosomarginal branches. There is no evidence of arteriovenous shunting -The MCA's fill physiologically throughout their territory there is no noted stenosis, occlusion or vasospasm noted within its branches. There is no evidence for aneurysm. There is no evidence of arteriovenous shunting. The capillary phase is normal without areas of malperfusion, the venous phase demonstrates a normal venous draining pattern Left Internal Carotid Artery (AP, Lateral) -The cervical carotid artery is patent without areas of stenosis, dissection or ulceration; and is without branches -The petrous carotid artery is patent without areas of stenosis, dissection or ulceration the mandibulovidian artery is not visualized, no petrosal segment aneurysms -The cavernous carotid artery is patent without areas of stenosis, dissection, or ulceration, meningohypophyseal trunk and inferolateral trunks are not visualized, there are no cavernous segment aneurysms -The supraclinoidal carotid artery, the op thalmic, communicating, and choroidal segments are patent without areas of stenosis and without aneurysms. The posterior communicating artery is normal sized, the anterior choroidal artery is visualized. The A1 and M1 segments are visualized and are without stenosis or vasospasm. -The ADY fill physiologically throughout their territory with cross-filling across the anterior communicating artery. There is no noted stenosis or vasospasm noted within its branches. There are no noted aneurysms of the pericallosal or callosomarginal branches. There is no evidence of arteriovenous shunting -The MCA's fill physiologically throughout their territory there is no noted stenosis, occlusion or vasospasm notedwithin its branches. There are no noted aneurysms. There is no evidence of arteriovenous shunting. The capillary phase is normal without areas of malperfusion, the venous phase demonstrates a normal venous draining pattern Left Vertebral Artery (Jennifer/Transfacial, Lateral)-The cervical course of the left vertebral artery has a normal course and appearance. Muscular branches arising from the distalsegments are visualized. There is no arteriovenous shunting nor vascular malformations. -There is no cross-filling into the right vertebral artery. There is no stenosis or ulceration noted in the vertebral or basilar arteries. PICA, AICA, and superior cerebellar arteries are visualized no evidence ofaneurysms at their origins. The functional consultant fill symmetrically, there is no evidence of stenosis or vasospasm. -There is not reflux into the posterior communicating artery. -The capillary phase is normal andin normal venous drainage pattern is noted Summary of Findings 1. Unremarkable intracranial vasculature. No evidence of intracranial aneurysms or other vascular lesions. 2. No clinical or radiographicevidence of complications. Signed: Thomas Pereyra MDReport Verified Date/Time: 01/11/2020 09:54:30 Reading Location: [facility] Y026 Neuro Angio [facility] hour urine 2020-01-08 10:31:00 Test Item Value Reference Interpretation Comments Range TOTAL VOLUME (test 1300 mL code = 8955959) Metanephrine (test 55 See_Comment This tico t was code = 4957138) developed an d its analytical perf ormance characteristics havebeen determ ined by [facility] .It has not been cleare d or approved by FDA . This assay has been validatedpursua nt to the [place] regula tions and is used for clinical purpos es. [Automated mess age] The system which ge nerated this result tra nsmitted reference range : 36 - 190 mcg/24 h. T he reference range was not used to interpr et this result as normal/abnormal . Normetanephrine 419 See_Comment This test w as (test code = developed and i ts 5936309) analytical perf ormance characteristics havebeen determ ined by [facility] .It has not been cleare d or approved by FDA . This assay has been validatedpursua nt to the CLDualog regula tions and is used for clinical purpos es. [Automated mess age] The system which ge nerated this result tra nsmitted reference range : 35 - 482 mcg/24 h. T he reference range was not used to interpr et this result as normal/abnormal . Metaneph, Total, 474 See_Comment A four-fol d elevation 24H Ur (test code = of urina ry 2609-6) normetanephrine s is extremely likel y to bedue to a tumo r, while a four-fold lina vation of urinary metanephrines i shighly suggestive, but not diagnostic, of a tumor. Measurement of plasmametanephr luis and chromogranin A is recommended for confirmation. T his test was developed a nd its analytical perf ormance characteristics havebeen determ ined by [facility] .It has not been cleare d or approved by FDA . This assay has been validatedpursua nt to the CLIA regula tions and is used for clinical purpos es. [Automated mess age] The system which ge nerated this result tra nsmitted reference range : 115 - 695 mcg/24 h. T he reference range was not used to interpr et this result as normal/abnormal . JACKSON (test code = Performing Lab JACKSON) [employer] [facility] [address] [place] [address] I Sierra SWARTZ, PhD, MARCIANO [facility]-Glucose [id number] 12:10:00 Test Item Value Reference Range Interpretation Comments POC-Glucose Meter (test 225 mg/dL 70-110 H : TE STED AT [facility] code = 1538) [address] [facility], [address]: Lean Leader/Techni rosio ID = [id number] for REYNA PATE IA Lab Interpretation (test Abnormal code = 86496-2) [facility]-GLUCOSE [id number] 12:10:00 Test Item Value Reference Range Interpretation Comments POC-GLUCOSE METER 225 mg/dL 70-110 H : [facility] (test code = [facility], 1538) [address]: Lean Leader/Techni rosio ID = [id number] for LONNY MURILLO JUAN POCT-GLUCOSE [id number] 08:07:00 Test Item Value Reference Range Interpretation Comments POC-GLUCOSE METER 166 mg/dL 70-110 H : [facility] (BEAKER) (test code = [facility], 1538) [address]: Lean Leader/Techni rosio ID = [id number] for LONNY MURILLO JUAN Basic Metabolic [id number] 06:05:00 Test Item Value Reference Range Interpretation Comments Sodium (test code = 136 meq/L 778-496 9903-2) Potassium (test code = 4.2 meq/L 3.5-5.1 2823-3) Chloride (test code = 101 meq/L 98-107 2075-0) CO2 (test code = 28 meq/L -29 8-9) BUN (test code = 12 mg/dL - 3094-0) Creatinine (test code 0.75 mg/dL 0.57-1.25 = 2160-0) Glucose (test code = 156 mg/dL 70-105 H 2345-7) Calcium (test code = 8.5 mg/dL 8.4-10.2 96496-3) EGFR (test code = 117 mL/min/1.73 sq m [facility] [place] [address]-1) NOT ACCURATE CREATININE CLEARANCE IN PREDICTING GLOMERULAR FILTRATION RATE . ESTIMATED GFR I S NOT APPLICABLE FOR DIALYSIS PATIENTS. JACKSON (test code = JACKSON) Lean Leader ID - EDASI Lab Interpretation Abnormal (test code = 46967-0) [facility] 06:05:00 Test Item Value Reference Range Interpretation Comments Magnesium (test code = 2.1 mg/dL 1.6-2.6 86170-2) JACKSON (test code = JACKSON) Lean Leader ID - EDASI Lab Interpretation (test Normal code = 86396-9) [facility]2020-11-21 06:05:00 Test Item Value Reference Range Interpretation Comments Phosphorus (test code = 3.3 mg/dL 2.3-4.7 2777-1) JACKSON (test code = JACKSON) Lean Leader ID - EDASI Lab Interpretation (test Normal code = 31118-2) [facility] Center[facility]IC METABOLIC [id number] 06:05:00 Test Item Value Reference Range Interpretation Comments SODIUM (BEAKER) 136 meq/L 136-145 (test code = 381) POTASSIUM (BEAKER) 4.2 meq/L 3.5-5.1 (test code = 379) CHLORIDE (BEAKER) 101 meq/L 98-107 (test code = 382) CO2 (BEAKER) (test 28 meq/L code = 355) BLOOD UREA NITROGEN 12 mg/dL 7-21 (BEAKER) (test code = 354) CREATININE (BEAKER) 0.75 mg/dL 0.57-1.25 (test code = 358) GLUCOSE RANDOM 156 mg/dL 70-105 H (BEAKER) (test code = 652) CALCIUM (BEAKER) 8.5 mg/dL 8.4-10.2 (test code = 697) EGFR (BEAKER) (test 117 mL/min/1.73 ESTIM ATED GFR IS code = 1092) sq m NOT ACCURATE CREATININE CLEARANCE IN PREDICTING GLOMERULAR FILTRATION RATE . ESTIMATED GFR I S NOT APPLICABLE FOR DIALYSIS PATIEN TS. Lean Leader ID - [id number] 06:05:00 Test Item Value Reference Range Interpretation Comments MAGNESIUM (BEAKER) (test code = 2.1 mg/dL 1.6-2.6 627) Lean Leader ID - [id number] 06:05:00 Test Item Value Reference Range Interpretation Comments PHOSPHORUS (BEAKER) (test code = 3.3 mg/dL 2.3-4.7 604) Lean Leader ID - EDASICBC with platelet count + automated [id number] 05:07:00 Test Item Value Reference Range Interpretation Comments WBC (test code = 6690-2) 8.0 See_Comment [A utomated message] The system Doppelganger generated this result transmitted ref erence range: 3.5 - 10 .5 K/L. The refe rence range was not u sed to interpret this result as normal/abnor mal. RBC (test code = 789-8) 4.54 See_Comment L [Au tomated message] The system Doppelganger generated this result transmitted ref erence range: 4.63 - 6 .08 M/L. The refe rence range was not u sed to interpret this result as normal/abnor mal. MCHC (test code = 786-4) 32.3 See_Comment L [A utomated message] The system Doppelganger generated this result transmitted ref erence range: 32.3 - 3 6.5 GM/DL. The refe rence range was not u sed to interpret this result as normal/abnor mal. Hematocrit (test code = 40.6 % 40.1-51 4544-3) MCV (test code = 787-2) 89.4 fL 79-92.2 MCH (test code = 785-6) 28.9 pg 25.7-32.2 RDW (test code = 788-0) 13.5 % 11.6-14.4 Platelets (test code = 313 See_Comment [Aut omated message] 777-3) The system Doppelganger generated this result transmitted ref erence range: 150 - 45 0 K/CU MM. The referen ce range was not u sed to interpret this result as normal/abnor mal. MPV (test code = 10.4 fL 9.4-12.4 60657-0) nRBC (test code = 413) 0 See_Comment [Aut omated message] The system Doppelganger generated this result transmitted ref erence range: 0 - 0 /1 00 WBC. The refere nce range was not u sed to interpret this result as normal/abnor mal. % Neutros (test code = 59 % 429) % Lymphs (test code = 29 % 430) % Monos (test code = 9 % 431) % Eos (test code = 432) 2 % % Baso (test code = 437) 1 % # Neutros (test code = 4.68 See_Comment [Aut omated message] 670) The system Doppelganger generated this result transmitted ref erence range: 1.78 - 5 .38 K/L. The refe rence range was not u sed to interpret this result as normal/abnor mal. # Lymphs (test code = 2.34 See_Comment [Auto mated message] 414) The system Doppelganger generated this result transmitted ref erence range: 1.32 - 3 .57 K/L. The refe rence range was not u sed to interpret this result as normal/abnor mal. # Monos (test code = 0.68 See_Comment [Autom ated message] 415) The system Doppelganger generated this result transmitted ref erence range: 0.30 - 0 .82 K/L. The refe rence range was not u sed to interpret this result as normal/abnor mal. # Eos (test code = 416) 0.18 See_Comment [Au tomated message] The system Doppelganger generated this result transmitted ref erence range: 0.04 - 0 .54 K/L. The refe rence range was not u sed to interpret this result as normal/abnor mal. # Baso (test code = 417) 0.04 See_Comment [A utomated message] The system Doppelganger generated this result transmitted ref erence range: 0.01 - 0 .08 K/L. The refe rence range was not u sed to interpret this result as normal/abnor mal. Immature 0 % 0-1 Granulocytes-Relative (test code = 2801) Lab Interpretation (test Abnormal code = 20763-8) [facility] W/PLT COUNT & AUTO [id number] 05:07:00 Test Item Value Reference Range Interpretation Comments WHITE BLOOD CELL COUNT (BEAKER) 8.0 K/ L 3.5-10.5 (test code = 775) RED BLOOD CELL COUNT (BEAKER) 4.54 M/ L 4.63-6.08 L (test code = 761) HEMOGLOBIN (BEAKER) (test code = 13.1 GM/DL 13.7-17.5 L 410) HEMATOCRIT (BEAKER) (test code = 40.6 % 40.1-51.0 411) MEAN CORPUSCULAR VOLUME (BEAKER) 89.4 fL 79.0-92.2 (test code = 753) MEAN CORPUSCULAR HEMOGLOBIN 28.9 pg 25.7-32.2 (BEAKER) (test code = 751) MEAN CORPUSCULAR HEMOGLOBIN CONC 32.3 GM/DL 32.3-36.5 (BEAKER) (test code = 752) RED CELL DISTRIBUTION WIDTH 13.5 % 11.6-14.4 (BEAKER) (test code = 412) PLATELET COUNT (BEAKER) (test 313 K/CU MM 150-450 code = 756) MEAN PLATELET VOLUME (BEAKER) 10.4 fL 9.4-12.4 (test code = 754) NUCLEATED RED BLOOD CELLS 0 /100 WBC 0-0 (BEAKER) (test code = 413) NEUTROPHILS RELATIVE PERCENT 59 % (BEAKER) (test code = 429) LYMPHOCYTES RELATIVE PERCENT 29 % (BEAKER) (test code = 430) MONOCYTES RELATIVE PERCENT 9 % (BEAKER) (test code = 431) EOSINOPHILS RELATIVE PERCENT 2 % (BEAKER) (test code = 432) BASOPHILS RELATIVE PERCENT 1 % (BEAKER) (test code = 437) NEUTROPHILS ABSOLUTE COUNT 4.68 K/ L 1.78-5.38 (BEAKER) (test code = 670) LYMPHOCYTES ABSOLUTE COUNT 2.34 K/ L 1.32-3.57 (BEAKER) (test code = 414) MONOCYTES ABSOLUTE COUNT (BEAKER) 0.68 K/ L 0.30-0.82 (test code = 415) EOSINOPHILS ABSOLUTE COUNT 0.18 K/ L 0.04-0.54 (BEAKER) (test code = 416) BASOPHILS ABSOLUTE COUNT (BEAKER) 0.04 K/ L 0.01-0.08 (test code = 417) IMMATURE GRANULOCYTES-RELATIVE 0 % 0-1 PERCENT (BEAKER) (test code = 2801) POCT-GLUCOSE [id number] 21:16:00 Test Item Value Reference Range Interpretation Comments POC-GLUCOSE METER 205 mg/dL 70-110 H : TESTED A T [facility] 67[address] ([facility]) (test code = DENIZ Castillo [facility], 1538) [address]: Lean Leader/Techni rosio ID = [id number] for LO PEZ, NADINA POCT-GLUCOSE [id number] 17:10:00 Test Item Value Reference Range Interpretation Comments POC-GLUCOSE METER 199 mg/dL 70-110 H : TESTED A T [facility] 6720 (BEAKER) (test code [facility], = 1538) [address]: Lean Leader/Techni rosio ID = [id number] for TSEG GAI, TSIGHEREDA [id number] 16:16:00 Test Item Value Reference Interpretation Comments Range Metanephrine (test <25 See_Comment This tico t was developed code = 5193181) and its anal ytical performance characteristics havebeen determined by [facility] pipe [place].It h as not been cleared or appr wander by FDA. This assay has been validatedpursua nt to the CLIA regulation s and is used for clinic al purposes. [Auto mated message] The sy stem which generated this result transmitted ref erence range: < OR = 5 7 pg/mL. The reference r alexey was not used to int erpret this result as jennifer l/abnormal. Normetanephrine 127 pg/mL See_Comment This test w as developed (test code = and its analyti yris 20190519) performance characteristics havebeen determined by [employer] [facility].It h as not been cleared or appr wander by FDA. This assay has been validatedpursua nt to the CLIA regulation s and is used for clinic al purposes. [Auto mated message] The sy stem which generated this result transmitted ref erence range: < OR = 1 48. The reference range was not used to interpr et this result as jennifer l/abnormal. Total Metanephrine 127 pg/mL See_Comment Elevatio ns > 4-fold upper (test code = reference range : strongly 20190621) suggestive of apheochromocyto ma(1). Elevations >1 - 4-fold upper reference range:significa nt but not diagnostic, may be due to medications or stress. Suggestrunning 24 hr urine fractionated me tanephrines and serum Chrom ogranin A forconfirmation . Reference: (1) Sabine Mitchell et al, Plasma Aligner mogranin A or Urine FractionatedMet anephrines Follow-Up Testi ng Improves the Diagnostic Accuracy of PlasmaFractiona ama Metanephrines f or Pheochromocytom a. The Journal of ClinicalEndocri nology and Metabolism 93 ( 1),91-95, 2008. For addit ional information, pl ease refer tohttp://educat ion.t-Art.PaeDae/f aq/MetFract Free(This link is being provided for informational/e ducational purposes only.) This test was developed a nd its analytical perf ormance characteristics havebeen determined by [facility] [facility].It h as not been cleared or appr wander by FDA. This assay has been validatedpursua nt to the CLIA regulation s and is used for clinic al purposes. [Auto mated message] The sy stem which generated this result transmitted ref erence range: < OR = 2 05. The reference range was not used to interpr et this result as jennifer l/abnormal. JACKSON (test code = Performing Lab JACKSON) EZ [employer] [facility] [address] [place] [address] Yelena Esquivel MD, PhD, MARCIANO [facility] Center[facility] [id number] 12:08:00 Test Item Value Reference Range Interpretation Comments POC-GLUCOSE METER 245 mg/dL 70-110 H : Notified RN/MD: TESTED (BEAKER) ([facility] [address] = 1538) [facility], [address]: Lean Leader/Techni rosio ID = [id number] for RANDY LOBO POCT-GLUCOSE [id number] 08:53:00 Test Item Value Reference Range Interpretation Comments POC-GLUCOSE METER 155 mg/dL 70-110 H : TESTED A T [facility] 6720 (BEAKER) (test code [facility], = 1538) [address]: Lean Leader/Techni rosio ID = [id number] for RANDY LOBO BASIC METABOLIC [id number] 07:16:00 Test Item Value Reference Range Interpretation Comments SODIUM (BEAKER) 135 meq/L 136-145 L (test code = 381) POTASSIUM (BEAKER) 3.7 meq/L 3.5-5.1 (test code = 379) CHLORIDE (BEAKER) 98 meq/L 98-107 (test code = 382) CO2 (BEAKER) (test 31 meq/L 22-29 H code = 355) BLOOD UREA NITROGEN 10 mg/dL 7-21 (BEAKER) (test code = 354) CREATININE (BEAKER) 0.74 mg/dL 0.57-1.25 (test code = 358) GLUCOSE RANDOM 144 mg/dL 70-105 H (BEAKER) (test code = 652) CALCIUM (BEAKER) 8.5 mg/dL 8.4-10.2 (test code = 697) EGFR (BEAKER) (test 119 mL/min/1.73 ESTIM ATED GFR IS code = 1092) sq m NOT ACCURATE CREATININE CLEARANCE IN PREDICTING GLOMERULAR FILTRATION RATE . ESTIMATED GFR I S NOT APPLICABLE FOR DIALYSIS PATIEN TS. Lean Leader ID - [id number] 07:16:00 Test Item Value Reference Range Interpretation Comments MAGNESIUM (BEAKER) (test code = 2.0 mg/dL 1.6-2.6 627) Lean Leader ID - [id number] 07:16:00 Test Item Value Reference Range Interpretation Comments PHOSPHORUS (BEAKER) (test code = 2.6 mg/dL 2.3-4.7 604) Lean Leader ID - EDASICBC W/PLT COUNT & AUTO [id number] 05:07:00 Test Item Value Reference Range Interpretation Comments WHITE BLOOD CELL COUNT (BEAKER) 9.0 K/ L 3.5-10.5 (test code = 775) RED BLOOD CELL COUNT (BEAKER) 4.43 M/ L 4.63-6.08 L (test code = 761) HEMOGLOBIN (BEAKER) (test code = 13.0 GM/DL 13.7-17.5 L 410) HEMATOCRIT (BEAKER) (test code = 40.1 % 40.1-51.0 411) MEAN CORPUSCULAR VOLUME (BEAKER) 90.5 fL 79.0-92.2 (test code = 753) MEAN CORPUSCULAR HEMOGLOBIN 29.3 pg 25.7-32.2 (BEAKER) (test code = 751) MEAN CORPUSCULAR HEMOGLOBIN CONC 32.4 GM/DL 32.3-36.5 (BEAKER) (test code = 752) RED CELL DISTRIBUTION WIDTH 13.5 % 11.6-14.4 (BEAKER) (test code = 412) PLATELET COUNT (BEAKER) (test 278 K/CU MM 150-450 code = 756) MEAN PLATELET VOLUME (BEAKER) 10.8 fL 9.4-12.4 (test code = 754) NUCLEATED RED BLOOD CELLS 0 /100 WBC 0-0 (BEAKER) (test code = 413) NEUTROPHILS RELATIVE PERCENT 68 % (BEAKER) (test code = 429) LYMPHOCYTES RELATIVE PERCENT 21 % (BEAKER) (test code = 430) MONOCYTES RELATIVE PERCENT 9 % (BEAKER) (test code = 431) EOSINOPHILS RELATIVE PERCENT 2 % (BEAKER) (test code = 432) BASOPHILS RELATIVE PERCENT 1 % (BEAKER) (test code = 437) NEUTROPHILS ABSOLUTE COUNT 6.06 K/ L 1.78-5.38 H (BEAKER) (test code = 670) LYMPHOCYTES ABSOLUTE COUNT 1.84 K/ L 1.32-3.57 (BEAKER) (test code = 414) MONOCYTES ABSOLUTE COUNT (BEAKER) 0.78 K/ L 0.30-0.82 (test code = 415) EOSINOPHILS ABSOLUTE COUNT 0.20 K/ L 0.04-0.54 (BEAKER) (test code = 416) BASOPHILS ABSOLUTE COUNT (BEAKER) 0.05 K/ L 0.01-0.08 (test code = 417) IMMATURE GRANULOCYTES-RELATIVE 0 % 0-1 PERCENT (BEAKER) (test code = 2801) POCT-GLUCOSE [id number] 22:38:00 Test Item Value Reference Range Interpretation Comments POC-GLUCOSE METER 162 mg/dL 70-110 H : TESTED A T [facility] 6720 (BEAKER) (test code = DENIZ Castillo [facility], 1538) [address]: Lean Leader/Techni rosio ID = [id number] for LONNY LEIVA JOE Renin, [id number] 19:27:00 Test Item Value Reference Range Interpretation Comments PRA,LC/MS/MS 0.52 ng/mL/h 0.25-5.82 This test was developed (test code = and its analyti yris 6402117) performance characteristics havebeen determined by [facility].It h as not been cleared or approved by FDA. This as say has been validatedp ursuant to the CLIA reg ulations and is used for clinical purposes. JACKSON (test Performing Lab code = JACKSON) EZ [employer] [facility] [address] [place] [address] Yelena Esquivel MD, PhD, MARCIANO [facility] CenterPO[facility]SE [id number] 18:53:00 Test Item Value Reference Range Interpretation Comments POC-GLUCOSE METER 223 mg/dL 70-110 H : TESTED A T [facility] 6720 (BEAKER) (test code = DENIZ Castillo [facility], 1538) [address]: Lean Leader/Techni rosio ID = [id number] for Brent tel, [employer] 2D [id number] 18:02:08Ejection FractionSLEH ECHO HEARTLAB MKCKESSON CPACSInterface, External Ris In - 01/05/2020 6:02 PM CSTTransthoracic Echocardiography Report (TTE) Demographics Patient Name JERICA BELL Date of Study 01/05/2020 JUSTIN Gender Male Visit Number [id number] Race Room Number 7410 Number Date of 1980 Referring Anatoly Malik Physician Age 39 year(s) Computer Service Technician Leticia Delgado RUST Interpreting Danilo Pryor MD Physician Fellow GERARD Gallegos Procedure Type of Study TTE procedure:LIMITED 2D ECHOCARDIOGRAM (Routine) Indications:Suspected cardiac source of emboli.Clinical HistorySALINE CONTRAST DONEHGB 12.9HCT 40.1 %HTN, DM, Seizure, SAHContrast Medium: Definity. Amount - 2 mlHeight: 71.5 inches Weight: 141.52 kg (312 lbs) BSA: 2.56 m^2 BMI: 42.91kg/m^2HR: 71 bpm BP: 176/115 mmHg Summary 1. The left ventricle is chamber size (by vol index) is normal. Normal LV wall thickness. All of the LV segments contract normally. LVEF by Guthrie's method of disk assessment is normal (55- 60%). LA size is mildly enlarged . 2. The right ventricular chamber size and systolic function are within normal limits. RA size is normal. Estimated peak systolic PA pressure is cannot be determined due to inadequate TR velocity signal . 3. No significant valvular abnormalities. 4. IV saline contrast injection was negative for a PFO (patent foramen ovale) post Valsalva . Previous Study No prior studies available for comparison. Signature Findings Rhythm/BP Regular sinus rhythm during the exam. Left LV endocardium is well visualized with IV ultrasound Ventricle enhancing agent. The left ventricle is chamber size (by vol index) is normal (male - LVED vol - 34-74ml/m2). Normal LV wall thickness. All of the LV segments contract normally . Global LV systolic function normal . LVEF by Guthrie's method of disk assessment is normal (55-60%) . Degree of diastolic dysfunction (LAP assessment) is indeterminate. Left Atrium LA size is mildly enlarged . Right The right ventricular chamber size and systolic function are Ventricle withinnormal limits. Right Atrium RA size is normal. Atrial Septum IV saline contrast injection was negative for a PFO (patent foramen ovale) post Valsalva . Aortic Valve The aortic valve is not well visualized. Mitral Valve Normal MV structure. Doppler function not assessed. Tricuspid TV structure is normal. Valve A trace of tricuspid regurgitation. Estimated peak systolic PA pressure is cannot be determined due to inadequate TR velocity signal . Pulmonic PV is not visualized. Valve Chambers/Structures Left Atrium LA Volume: 88.36 ml LA Area: 26.54 cm^2 LA Vol. Index: 35 ml/m^2 Left Ventricle LVIDd:5.79 cm LVEDV:152.24 ml LVIDs: 4.21 cm LVESV:74.47 ml LV Septum Diastolic: 0.67 cm LVEF 2D Cube: 57.1 % LV PW Diastolic: 0.98 cm LVEDV Guthrie's:101.28 ml LV FS: 27.3 % LVESV Guthrie's:45.3 ml LVEF Guthrie's: 56.4 % LVEDVI: 40 ml/m^2 LVESVI: 18 ml/m^2 LVOT Diameter: 2.15 cm LVEF: 51.1 % Right Ventricle TAPSE: 2.76 cm Doppler/Quantitative Measurements Mitral Valve MV Peak E-Wave: 1.05 m/s MV Peak A-Wave: 0.69 m/s E/A Ratio: 1.53 Peak Gradient: 4.43 mmHg Deceleration Time: 193.7 msec MV Waldo. Peak: Aortic Valve Peak Velocity: 1.54 m/s Mean Velocity: 0.94 m/s Peak Gradient: 9.45 mmHg Mean Gradient: 4.4 mmHg AV Area (continuity): 3.33 cm^2 AV VTI: 26.86 cm AV DVI: 0.92 LVOT Peak Velocity: 1.38 m/s Peak Gradient: 7.64 mmHg Mean Velocity: 0.84 m/s Mean Gradient: 3.54 mmHg LVOT Diameter: 2.15 cm LVOT VTI: 24.66 cm LVOT Area: 3.63 cm^2 LVOT SV:89.48 ml LVOT CO: 6.35 l/min LVOT CI: 2.48 l/min/m^2[facility]PO[facility] [id number] 13:24:00 Test Item Value Reference Range Interpretation Comments POC-GLUCOSE METER 145 mg/dL 70-110 H : TESTED A T [facility] 6720 (BEAKER) (test code = [facility], 1538) [address]: Lean Leader/Techni rosio ID = [id number] for Alison Luong POCT-GLUCOSE [id number] 07:25:00 Test Item Value Reference Range Interpretation Comments POC-GLUCOSE METER 94 mg/dL 70-110 : TESTED A T [facility] 6720 (BEAKER) (test code = [facility], 1538) [address]: Lean Leader/Techni rosio ID = [id number] for Clare Clarke BASIC METABOLIC [id number] 05:17:00 Test Item Value Reference Range Interpretation Comments SODIUM (BEAKER) 139 meq/L 136-145 (test code = 381) POTASSIUM (BEAKER) 3.8 meq/L 3.5-5.1 (test code = 379) CHLORIDE (BEAKER) 103 meq/L 98-107 (test code = 382) CO2 (BEAKER) (test 27 meq/L 22-29 code = 355) BLOOD UREA NITROGEN 12 mg/dL 7-21 (BEAKER) (test code = 354) CREATININE (BEAKER) 0.75 mg/dL 0.57-1.25 (test code = 358) GLUCOSE RANDOM 108 mg/dL 70-105 H (BEAKER) (test code = 652) CALCIUM (BEAKER) 8.6 mg/dL 8.4-10.2 (test code = 697) EGFR (BEAKER) (test 117 mL/min/1.73 ESTIM ATED GFR IS code = 1092) sq m NOT ACCURATE CREATININE CLEARANCE IN PREDICTING GLOMERULAR FILTRATION RATE . ESTIMATED GFR I S NOT APPLICABLE FOR DIALYSIS PATIEN TS. Lean Leader ID - SOLOMON [id number] 05:17:00 Test Item Value Reference Range Interpretation Comments MAGNESIUM (BEAKER) (test code = 2.0 mg/dL 1.6-2.6 627) Lean Leader ID - SOLOMON [id number] 05:17:00 Test Item Value Reference Range Interpretation Comments PHOSPHORUS (BEAKER) (test code = 3.8 mg/dL 2.3-4.7 604) Lean Leader ID - SOLOMON MCBC W/PLT COUNT & AUTO [id number] 04:59:00 Test Item Value Reference Range Interpretation Comments WHITE BLOOD CELL COUNT (BEAKER) 10.8 K/ L 3.5-10.5 H (test code = 775) RED BLOOD CELL COUNT (BEAKER) 4.45 M/ L 4.63-6.08 L (test code = 761) HEMOGLOBIN (BEAKER) (test code = 12.9 GM/DL 13.7-17.5 L 410) HEMATOCRIT (BEAKER) (test code = 40.1 % 40.1-51.0 411) MEAN CORPUSCULAR VOLUME (BEAKER) 90.1 fL 79.0-92.2 (test code = 753) MEAN CORPUSCULAR HEMOGLOBIN 29.0 pg 25.7-32.2 (BEAKER) (test code = 751) MEAN CORPUSCULAR HEMOGLOBIN CONC 32.2 GM/DL 32.3-36.5 L (BEAKER) (test code = 752) RED CELL DISTRIBUTION WIDTH 13.7 % 11.6-14.4 (BEAKER) (test code = 412) PLATELET COUNT (BEAKER) (test 286 K/CU MM 150-450 code = 756) MEAN PLATELET VOLUME (BEAKER) 10.8 fL 9.4-12.4 (test code = 754) NUCLEATED RED BLOOD CELLS 0 /100 WBC 0-0 (BEAKER) (test code = 413) NEUTROPHILS RELATIVE PERCENT 71 % (BEAKER) (test code = 429) LYMPHOCYTES RELATIVE PERCENT 19 % (BEAKER) (test code = 430) MONOCYTES RELATIVE PERCENT 6 % (BEAKER) (test code = 431) EOSINOPHILS RELATIVE PERCENT 3 % (BEAKER) (test code = 432) BASOPHILS RELATIVE PERCENT 1 % (BEAKER) (test code = 437) NEUTROPHILS ABSOLUTE COUNT 7.64 K/ L 1.78-5.38 H (BEAKER) (test code = 670) LYMPHOCYTES ABSOLUTE COUNT 2.04 K/ L 1.32-3.57 (BEAKER) (test code = 414) MONOCYTES ABSOLUTE COUNT (BEAKER) 0.69 K/ L 0.30-0.82 (test code = 415) EOSINOPHILS ABSOLUTE COUNT 0.33 K/ L 0.04-0.54 (BEAKER) (test code = 416) BASOPHILS ABSOLUTE COUNT (BEAKER) 0.07 K/ L 0.01-0.08 (test code = 417) IMMATURE GRANULOCYTES-RELATIVE 0 % 0-1 PERCENT (BEAKER) (test code = 2801) SARS-CoV2/RT-PCR (Asymptomatic ONLY)2020-01-05 00:20:00 Test Item Value Reference Range Interpretation Comments SARS-COV2/RT-PCR Negative Not Detected, (test code = Negative, See 76643-2) external report for linked test SARS-COV-2 [facility] PERFORMING LAB (test code = 27408-7) JACKSON (test code = Negative result for this JACKSON) test determines that SARS-CoV-2 RNA was not present in the specimen above the Limit of Detection (LOD). However, Negative results do not preclude SARS-CoV-2 infection and should not be used as the sole basis for treatment or patient management decisions. Negative results must be combined with clinical observations, patient history, and epidemiological information. A false negative result may occur if a specimen is improperly collected, transported or handled. A false negative result should be considered if patient's recent exposures or clinical presentation indicate that COVID-19 (SARS-CoV-2) is likely and diagnostic tests for other causes of illness are negative. Re-testing should be considered in cases of suspected false negatives. The limit of detection for this assay is 100 copies/mL. This SARS CoV-2 test is a real-time RT-PCR test intended for the qualitative detection of nucleic acid from SARS-CoV-2 in a nasopharyngeal swab specimen collected from individuals suspected of COVID-19 by their healthcare provider. This test has not been Food and Drug Administration (FDA) cleared or approved. This is a modified version of an approved Emergency Use Authorization (EUA) and is in the process of review by the FDA. Once authorized by the FDA, the issued EUA will be effective until the declaration that circumstances exist justifying the authorization of the emergency use of in vitro diagnostic tests for detection and/or diagnosis of COVID-19 is terminated under Section 564(b)(2) of the Act or the EUA is revoked under Section 564(g) of the Act. Testing was performed using the Theravasc SARS-CoV-2 assay. Fact Sheet for Healthcare Providers:https://www.endy shabazzVectra Networks/philippe/RT_SA RQ-IsQ-3_WLK_Ugpz_Vdibg_ 51-341573.pdf Fact Sheet for Healthcare Patients:https://www.trinity riosVectra Networks/philippe/RT_SAR R-JhH-6_Jkjhaph_Nwpc_Ocj et_EN_51-007864W3.pdf Performing Laboratory:[facility] [place] [address] [facility])2020-01-05 00:20:00 Test Item Value Reference Range Interpretation Comments SARS-COV2/RT-PCR (test Negative Not Detected, Negative, code = 9657485) See external report for linked test SARS-COV-2 PERFORMING LAB [facility] (test code = 4618064) Negative result for this test determines that SARS-CoV-2 RNA was not present in the specimen above the Limit of Detection (LOD). However, Negative results do not preclude SARS-CoV-2 infection and should not be used as the sole basis for treatment or patient management decisions. Negative results mustbe combined with clinical observations, patient history, and epidemiological information. A false negative result may occur if a specimen is improperly collected, transported or handled. A false negative result should be considered if patient's recent exposures or clinical presentation indicate that COVID-19 (SARS-CoV-2) is likely and diagnostic tests for other causes of illness are negative. Re-testing should be considered in cases of suspected false negatives.The limit of detection for this assay is 100 copies/mL.This SARS CoV-2 test is a real-time RT-PCR test intended for the qualitative detection of nucleic acid from SARS-CoV-2 in a nasopharyngeal swab specimen collected from individuals susp ected of COVID-19 by their healthcare provider.This test has not been Food and Drug Administration (FDA) cleared or approved. This is a modified version of an approved Emergency Use Authorization (EUA) and is in the process of review by the FDA. Once authorized by the FDA, the issued EUA will be effective until the declaration that circumstances exist justifying the authorization of the emergency use of in vitro diagnostic tests for detection and/or diagnosis of COVID-19 is terminated under Section 564(b)(2) of the Act or the EUA is revoked under Section 564(g) of the Act.Testing was performed using the Ryan SARS-CoV-2 assay.Fact Sheet for Healthcare Providers:https://www.Abeelo.ryan/philippe/ JC_GKCZ-PpU-0_YHU_Drep_Cszcw_94-154372.pdfFact Sheet for Healthcare Patients:https://www.[employer]beelo.Linkedwith robyn/philippe/KH_UCUF-JsV-5_Xaaoehw_Pwxy_Xvcff_QU_39-700974S6.pdfPerforming Laboratory:[facility] [place] [place] [address] POCT-GLUCOSE [id number] 21:20:00 Test Item Value Reference Range Interpretation Comments POC-GLUCOSE METER 134 mg/dL 70-110 H : TESTED A T [facility] 6720 (FELIPE) (test code = DENIZ Jonathan [facility], 1538) [address]: Lean Leader/Techni rosio ID = [id number] for Clare Armstrong [id number] 17:55:00 Test Item Value Reference Interpretation Comments Range Aldosterone (test 3 ng/dL Adult Ref erence code = 7320494) Ranges for Aldosterone: Upright 8:00-10 :00 am < or = 28 ng/ dL Upright 4:00-6: 00 pm < or = 21 ng/ dL Supine 8:00-10 :00 am 3-16 ng/dL Th is test was developed a nd its analytical perf ormance characteristics havebeen determ ined by [facility] .It has not been cleare d or approved by FDA . This assay has been validatedpursua nt to the CLIA regula tions and is used for clinical purpos es. JACKSON (test code = Performing Lab JACKSON) EZ [employer] [facility] [address] [place] [address] Yelena Esquivel MD, PhD, MARCIANO [facility] CenterMR, BRAIN, [id number] 17:44:00Unlisted Reason for Exam - Click Yes and Enter Reason Below->No [facility] CENTERName: JERICA BELL : 1980 Sex: MAddendum BeginsREPORT STATUS:A Additional comparison is made to the diagnostic angiogram performed 12/30/2019, while there are again prominent flow voids in the right anterior temporal region, the prior angiogram provided more definitive evaluation and was negative for vascular malformation. Please see that report for further details. The findings were discussed with the neuro ICU resident on 01/04/2020 5:43 PM. Signed: Mona Gabby MDReport Verified Date/Time: 01/04/2020 17:44:07 Addendum EndsFINAL REPORT MR, BRAIN, WITH \T\ WITHOUT CONTRAST INDICATION: Subarachnoid hemorrhage, follow-up TECHNIQUE: Multiplanar, multisequence MR imaging of the brain prior to and following intravenous administration of contrast. COMPARISON: CT 01/01/2020 and CTA 12/29/2019 FINDINGS: Intracranial: FLAIR hyperintensity and susceptibility signal dropout related to subarachnoid hemorrhage in the right sylvian fissure. No new site of hemorrhage. There are multiple small foci of restricted diffusion and FLAIR hyperintensity in the right frontal white matter, right posterior malagon radiata, left thalamus, right temporal and occipital lobes, right brachium pontis, and left cerebellar hemisphere, consistent with acute infarcts. No mass effect. No abnormal post-contrast enhancement. No hydrocephalus. Visualized intracranial flow voids are of normal course and caliber. Sinuses: No evidence of sinusitis. Mastoids are clear. Orbits: Globes are intact. Calvarium \T\ scalp: Unremarkable. IMPRESSION:1.Evolving subarachnoid hemorrhage within the right sylvian fissure.2.Multifocal small acute infarcts in multiple vascular distributions, suggestive of embolic etio logy. Signed: Gabby Dunn Verified Date/Time: 01/04/2020 15:45:30 -GLUCOSE [id number] 17:40:00 Test Item Value Reference Range Interpretation Comments POC-GLUCOSE METER 173 mg/dL 70-110 H : TESTED A T [facility] 6720 ([employer]) (test code = DENIZ [place], 1538) [address]: Lean Leader/Techni rosio ID = [id number] for ROULA MO MR brain without & with IV [id number] 15:45:00Interface, External Ris In - 01/04/2020 5:46 PM CSTAddendum BeginsREPORT STATUS:A Additional comparison is made to the diagnostic angiogram performed 12/30/2019, while there areagain prominent flow voids in the right anterior temporal region, the prior angiogram provided more definitive evaluation and was negative for vascular malformation. Please see that report for further details. The findings were discussed with the neuro ICU resident on 01/04/2020 5:43 PM. Signed: Gabby Dunn Verified Date/Time: 01/04/2020 17:44:07 Addendum EndsFINAL REPORT MR, BRAIN, WITH \T\ WITHOUT CONTRAST INDICATION: Subarachnoid hemorrhage, follow-up TECHNIQUE: Multiplanar, multisequence MR imaging of the brain prior to and following intravenous administration of contrast. COMPARISON: CT 01/01/2020 and CTA 12/29/2019 FINDINGS: Intracranial: FLAIR hyperintensity and susceptibility signal dropout related to subarachnoid hemorrhage in the right sylvian fissure. No new site of hemorrhage. There are multiple small foci of restricted diffusion and FLAIR hyperintensity in the right frontal white matter, right posterior malagon radiata, left thalamus, right temporal and occipital lobes, right brachium pontis, and left cerebellar hemisphere, consistent with acute infarcts. No mass effect. No abnormal post-contrast enhancement. No hydrocephalus. Visualized intracranial flow voids are of normal course and caliber. Sinuses: No evidence of sinusitis. Mastoids are clear. Orbits: Globes are intact. Calvarium \T\ scalp: Unremarkable. IMPRESSION:1.Evolving subarachnoid hemorrhage within the right sylvian fissure.2.Multifocal small acute infarcts in multiple vascular distributions, suggestive of embolic etiology. Signed: Gabby Dunn Verified Date/Time: 01/04/2020 15:45:30 [facility] [id number] 11:41:00 Test Item Value Reference Range Interpretation Comments POC-GLUCOSE METER 145 mg/dL 70-110 H : TESTED A T [facility] 6720 (BEAKER) (test code = DENIZ [place], 1538) [address]: Lean Leader/Techni rosio ID = [id number] for MANNIE L[address] ZAY, ANGIOGRAM, [id number] 11:00:00For 12/29 at 12PMReason for exam:- >subarachnoid hemorrhageAnesthesia:->[facility] : 1980 Sex: MFINAL REPORT Date of Procedure: 12/30/2019 Surgeon: Gerry Lemon BBSAssistant: Kike Rojas MD Pre-operative diagnosis:Subarachnoid hemorrhagePost-operative diagnosis: Subarachnoid hemorrhage Procedure: Diagnostic cerebral angiogram Anesthesiologist: per anesthesia recordsAnesthesia Type: MAC Complications: None apparent Vessel injections:1. Right femoral artery2. Right common carotid artery3. Right external carotid artery4. Right internal carotid artery5. Left vertebral artery6. Left common Indication for procedure: Patient is a 39-year-old man with hypertension and obesity who presented with several days of headache. Initial workup revealed trace right sylvian and cortical subarachnoid hemorrhage, concerning for vascular lesion in the right temporal area. Adiagnostic cerebral angiogram was recommended. Procedure in Detail: AngiogramFollowing explanation of the benefits, risks and alternatives for the procedure, informed consent was obtained from the patient. The risks including but not limited to stroke, intracranial hemorrhage, vascular injury to the cervical or access vessels were discussed. A time-out was performed. Both groins and wrists were prepped in the usual sterile fashion using Chloroprep, and sterilely draped. Access was initiated at the right femoral artery under ultrasound guidance (see medical chart for images) and a 6 Dominican sheathwas placed and maintained on heparinized flush. A 6 Dominican angled curved diagnostic catheter was introduced and brought into the aortic arch under fluoroscopic guidance. The diagnostic catheter was used to catheterize right common carotid artery, right external carotid artery, right internal carotid ar facundo, left vertebral artery left common carotid artery. Upon each successive selective catheterization, digital subtraction angiography using the appropriate rate and volume of contrast in multiple projections was performed. After adequate visualization of all vessels all sheaths and catheters were removed and a was used for hemostasis. The patient was transported to Neuro ICU in stable condition Three-dimensional imaging was also performed and images processed on an independent workstation. Findings: Right Femoral Artery (AP and Lateral)- The sheath enters above the femoral bifurcation. The femoral artery and bifurcation are widely patent without evidence of ulceration or stenosis. Right Common Carotid Artery - Cervical (AP, Lateral)-The origins of the right internal and external carotid arteries are widely patent without evidence of ulceration or stenosis. Right External Carotid Artery - Cranial (AP, Lateral)-The visualized branches of the external carotid artery are normal in course and appe arance. There is no evidence of arteriovenous shunting. The capillary and venous phases are normal Right Internal Carotid Artery - Cranial (AP, Lateral, Oblique)-The cervical carotid artery is patent without areas of stenosis, dissection or ulceration; and is without branches -The petrous carotid artery is patent without areas of stenosis, dissection or ulceration the mandibulovidian artery is not visualized, no petrosal segment aneurysms -The cavernous carotid artery is patent without areas of stenosis, dissection, or ulceration, meningohypophyseal trunk and inferolateral trunks are not visualized, there are no cavernous segment aneurysms -The supraclinoidal carotid artery, the opthalmic, communicating, and choroidal segments are patent without areas of stenosis and without aneurysms. The ophthalmic artery is large in caliber. The posterior communicating artery is normal sized, the anterior choroidal artery is visualized. The A1 and M1 segments are visualized and are without stenosis or vasospasm. -The ADY fill physiologically throughout their territory with cross- filling across the anteriorcommunicating artery. There is no noted stenosis or vasospasm noted within its branches. There are no noted aneurysms of the pericallosal or callosomarginal branches. There is no evidence of arteriovenous shunting -The MCA's fill physiologically throughout their territory there is no noted stenosis, occlusion or vasospasm noted within its branches. There is no evidence for aneurysm. There is no evidence of arteriovenous shunting. The capillary phase is normal without areas of malperfusion, the venous phase demonstrates a normal venous draining pattern Left Vertebral Artery (Jennifer/Transfacial, Lateral)-The cervical course of the left vertebral artery has a normal course and appearance. Muscular branches arising from the distal segments are visualized. There is no arteriovenous shunting nor vascular malformations. -There is no cross-filling into the right vertebral artery retrograde. -There is no stenosis or ulceration noted in the vertebral or basilar arteries. PICA, AICA, and superior cerebellar arteries are visualized no evidence of aneurysms at their origins. The functional consultant fill symmetrically, there is no evidence of stenosis or vasospasm. -There is trace reflux into the posterior communicating artery. -The capillary phase is normal and in normal venous drainage pattern is noted Left CommonCarotid Artery - Cervical (AP, Lateral,)- The origins of the left internal and external carotid arteries are widely patent without evidence of ulceration or stenosis. Left Common Carotid Artery - Cranial (AP, Lateral, Oblique)-The visualized branches of the external carotid artery are normal in course and appearance. There is no evidence of arteriovenous shunting. The capillary and venous phases are normal -The cervical carotid artery is patent without areas of stenosis, dissection or ulceration; andis without branches -The petrous carotid artery is patent without areas of stenosis, dissection or ulceration the mandibulovidian artery is not visualized, no petrosal segment aneurysms -The cavernous carotid artery is patent without areas of stenosis, dissection, or ulceration, meningohypophyseal trunk and inferolateral trunks are not visualized, there are no cavernous segment aneurysms -The supraclinoidal carotid artery, the opthalmic, communicating, and choroidal segments are patent without areas of stenosis and without aneurysms. The ophthalmic artery is large in caliber. The posterior communicating artery is small sized, the anterior choroidal artery is visualized. The A1 and M1 segments arevisualized and are without stenosis or vasospasm. -The ADY fill physiologically throughout their territory without cross-filling across the anterior communicating artery . There is no noted stenosis orvasospasm noted within its branches. There are no noted aneurysms of the pericallosal or callosomarginal branches. There is no evidence of arteriovenous shunting -The MCA's fill physiologically throughout their territory there is no noted stenosis, occlusion or vasospasm noted within its branches. There are no noted aneurysms. There is no evidence of arteriovenous shunting. The capillary phase is normal without areas of malperfusion, the venous phase demonstrates a normal venous draining pattern Summary of Findings 1. No evidence of cerebral angiogram, vascular malformation, or arteriovenous fistula. 2. No evidence of vasospasm in the right MCA territory. 3. No clinical or radiographic evidenceof complications. Signed: Thomas Pereyra MDReport Verified Date/Time: 01/04/2020 11:00:59 Reading [facility] POCT-GLUCOSE [id number] 07:48:00 Test Item Value Reference Range Interpretation Comments POC-GLUCOSE METER 169 mg/dL 70-110 H : TESTED A T [facility] 6720 (BEAKER) (test code = [facility], 1538) [address]: Lean Leader/Techni rosio ID = [id number] for SHERIF LOCKE BASIC METABOLIC [id number] 05:56:00 Test Item Value Reference Range Interpretation Comments SODIUM (BEAKER) 139 meq/L 136-145 (test code = 381) POTASSIUM (BEAKER) 3.5 meq/L 3.5-5.1 (test code = 379) CHLORIDE (BEAKER) 106 meq/L 98-107 (test code = 382) CO2 (BEAKER) (test 25 meq/L 22-29 code = 355) BLOOD UREA NITROGEN 13 mg/dL 7-21 (BEAKER) (test code = 354) CREATININE (BEAKER) 0.74 mg/dL 0.57-1.25 (test code = 358) GLUCOSE RANDOM 107 mg/dL 70-105 H (BEAKER) (test code = 652) CALCIUM (BEAKER) 8.5 mg/dL 8.4-10.2 (test code = 697) EGFR (BEAKER) (test 119 mL/min/1.73 ESTIM ATED GFR IS code = 1092) sq m NOT ACCURATE CREATININE CLEARANCE IN PREDICTING GLOMERULAR FILTRATION RATE . ESTIMATED GFR I S NOT APPLICABLE FOR DIALYSIS PATIEN TS. Lean Leader ID - [id number] 05:56:00 Test Item Value Reference Range Interpretation Comments MAGNESIUM (BEAKER) (test code = 2.2 mg/dL 1.6-2.6 627) Lean Leader ID - [id number] 05:56:00 Test Item Value Reference Range Interpretation Comments PHOSPHORUS (BEAKER) (test code = 4.3 mg/dL 2.3-4.7 604) Lean Leader ID - EDASICBC W/PLT COUNT & AUTO [id number] 05:07:00 Test Item Value Reference Range Interpretation Comments WHITE BLOOD CELL COUNT (BEAKER) 9.9 K/ L 3.5-10.5 (test code = 775) RED BLOOD CELL COUNT (BEAKER) 4.59 M/ L 4.63-6.08 L (test code = 761) HEMOGLOBIN (BEAKER) (test code = 13.4 GM/DL 13.7-17.5 L 410) HEMATOCRIT (BEAKER) (test code = 42.1 % 40.1-51.0 411) MEAN CORPUSCULAR VOLUME (BEAKER) 91.7 fL 79.0-92.2 (test code = 753) MEAN CORPUSCULAR HEMOGLOBIN 29.2 pg 25.7-32.2 (BEAKER) (test code = 751) MEAN CORPUSCULAR HEMOGLOBIN CONC 31.8 GM/DL 32.3-36.5 L (BEAKER) (test code = 752) RED CELL DISTRIBUTION WIDTH 13.7 % 11.6-14.4 (BEAKER) (test code = 412) PLATELET COUNT (BEAKER) (test 237 K/CU MM 150-450 code = 756) MEAN PLATELET VOLUME (BEAKER) 11.2 fL 9.4-12.4 (test code = 754) NUCLEATED RED BLOOD CELLS 0 /100 WBC 0-0 (BEAKER) (test code = 413) NEUTROPHILS RELATIVE PERCENT 67 % (BEAKER) (test code = 429) LYMPHOCYTES RELATIVE PERCENT 22 % (BEAKER) (test code = 430) MONOCYTES RELATIVE PERCENT 8 % (BEAKER) (test code = 431) EOSINOPHILS RELATIVE PERCENT 3 % (BEAKER) (test code = 432) BASOPHILS RELATIVE PERCENT 1 % (BEAKER) (test code = 437) NEUTROPHILS ABSOLUTE COUNT 6.66 K/ L 1.78-5.38 H (BEAKER) (test code = 670) LYMPHOCYTES ABSOLUTE COUNT 2.13 K/ L 1.32-3.57 (BEAKER) (test code = 414) MONOCYTES ABSOLUTE COUNT (BEAKER) 0.74 K/ L 0.30-0.82 (test code = 415) EOSINOPHILS ABSOLUTE COUNT 0.28 K/ L 0.04-0.54 (BEAKER) (test code = 416) BASOPHILS ABSOLUTE COUNT (BEAKER) 0.05 K/ L 0.01-0.08 (test code = 417) IMMATURE GRANULOCYTES-RELATIVE 0 % 0-1 PERCENT (BEAKER) (test code = 2801) POCT-GLUCOSE [id number] 21:09:00 Test Item Value Reference Range Interpretation Comments POC-GLUCOSE METER 175 mg/dL 70-110 H : TESTED [place] [address] ([facility] (test code = [facility], 1537) [address]: Lean Leader/Techni rosio ID = [id number] for Le sherif (contract), Elizabeth la POCT-GLUCOSE [id number] 16:43:00 Test Item Value Reference Range Interpretation Comments POC-GLUCOSE METER 133 mg/dL 70-110 H : Notified RN/MD: ([facility] (test code = TESTED AT [place] [address] 1537) [facility], [address]: Lean Leader/Techni rosio ID = [id number] for LL MEL, TIKEYA POCT-GLUCOSE [id number] 11:47:00 Test Item Value Reference Range Interpretation Comments POC-GLUCOSE METER 217 mg/dL 70-110 H : TESTED A [place] [id number] (BEAKER) (test code = [facility], 1538) [address]: Lean Leader/Techni rosio ID = [id number] for ROULA MO POCT-GLUCOSE [id number] 08:28:00 Test Item Value Reference Range Interpretation Comments POC-GLUCOSE METER 214 mg/dL 70-110 H : TESTED A T [facility] 6720 (BEAKER) (test code = [facility], 1538) [address]: Lean Leader/Techni rosio ID = [id number] for HARRISON WHITESIDE POCT-GLUCOSE [id number] 06:21:00 Test Item Value Reference Range Interpretation Comments POC-GLUCOSE METER 196 mg/dL 70-110 H : TESTED A T [facility] 6720 (BEAKER) (test code = [facility], 1538) [address]: Lean Leader/Techni rosio ID = [id number] for PAULO SUERO BASIC METABOLIC [id number] 04:12:00 Test Item Value Reference Range Interpretation Comments SODIUM (BEAKER) 141 meq/L 136-145 (test code = 381) POTASSIUM (BEAKER) 3.4 meq/L 3.5-5.1 L (test code = 379) CHLORIDE (BEAKER) 108 meq/L 98-107 H (test code = 382) CO2 (BEAKER) (test 26 meq/L 22-29 code = 355) BLOOD UREA NITROGEN 12 mg/dL 7-21 (BEAKER) (test code = 354) CREATININE (BEAKER) 0.67 mg/dL 0.57-1.25 (test code = 358) GLUCOSE RANDOM 177 mg/dL 70-105 H (BEAKER) (test code = 652) CALCIUM (BEAKER) 8.4 mg/dL 8.4-10.2 (test code = 697) EGFR (BEAKER) (test 133 mL/min/1.73 ESTIM ATED GFR IS code = 1092) sq m NOT ACCURATE CREATININE CLEARANCE IN PREDICTING GLOMERULAR FILTRATION RATE . ESTIMATED GFR I S NOT APPLICABLE FOR DIALYSIS PATIEN TS. Lean Leader ID - [id number] 04:12:00 Test Item Value Reference Range Interpretation Comments MAGNESIUM (BEAKER) (test code = 2.0 mg/dL 1.6-2.6 627) Lean Leader ID - [id number] 04:12:00 Test Item Value Reference Range Interpretation Comments PHOSPHORUS (BEAKER) (test code = 3.4 mg/dL 2.3-4.7 604) Lean Leader ID - EDASICBC W/PLT COUNT & AUTO [id number] 03:52:00 Test Item Value Reference Range Interpretation Comments WHITE BLOOD CELL COUNT (BEAKER) 9.7 K/ L 3.5-10.5 (test code = 775) RED BLOOD CELL COUNT (BEAKER) 4.33 M/ L 4.63-6.08 L (test code = 761) HEMOGLOBIN (BEAKER) (test code = 12.7 GM/DL 13.7-17.5 L 410) HEMATOCRIT (BEAKER) (test code = 38.1 % 40.1-51.0 L 411) MEAN CORPUSCULAR VOLUME (BEAKER) 88.0 fL 79.0-92.2 (test code = 753) MEAN CORPUSCULAR HEMOGLOBIN 29.3 pg 25.7-32.2 (BEAKER) (test code = 751) MEAN CORPUSCULAR HEMOGLOBIN CONC 33.3 GM/DL 32.3-36.5 (BEAKER) (test code = 752) RED CELL DISTRIBUTION WIDTH 13.5 % 11.6-14.4 (BEAKER) (test code = 412) PLATELET COUNT (BEAKER) (test 217 K/CU MM 150-450 code = 756) MEAN PLATELET VOLUME (BEAKER) 10.7 fL 9.4-12.4 (test code = 754) NUCLEATED RED BLOOD CELLS 0 /100 WBC 0-0 (BEAKER) (test code = 413) NEUTROPHILS RELATIVE PERCENT 73 % (BEAKER) (test code = 429) LYMPHOCYTES RELATIVE PERCENT 15 % (BEAKER) (test code = 430) MONOCYTES RELATIVE PERCENT 8 % (BEAKER) (test code = 431) EOSINOPHILS RELATIVE PERCENT 3 % (BEAKER) (test code = 432) BASOPHILS RELATIVE PERCENT 0 % (BEAKER) (test code = 437) NEUTROPHILS ABSOLUTE COUNT 7.13 K/ L 1.78-5.38 H (BEAKER) (test code = 670) LYMPHOCYTES ABSOLUTE COUNT 1.48 K/ L 1.32-3.57 (BEAKER) (test code = 414) MONOCYTES ABSOLUTE COUNT (BEAKER) 0.79 K/ L 0.30-0.82 (test code = 415) EOSINOPHILS ABSOLUTE COUNT 0.25 K/ L 0.04-0.54 (BEAKER) (test code = 416) BASOPHILS ABSOLUTE COUNT (BEAKER) 0.04 K/ L 0.01-0.08 (test code = 417) IMMATURE GRANULOCYTES-RELATIVE 1 % 0-1 PERCENT (BEAKER) (test code = 2801) POCT-GLUCOSE [id number] 23:45:00 Test Item Value Reference Range Interpretation Comments POC-GLUCOSE METER 169 mg/dL 70-110 H : TESTED A T [facility] 6720 (BEAKER) (test code = [facility] [place], 1538) [address]: Lean Leader/Techni rosio ID = [id number] for PAULO SUERO EEG W VID 12-26 HR CONTINUOUS MONITORING (VEEG)2020-01-02 16:44:00Reason for exam:->AMSShould this be performed at the bedside?->No [facility] 1980 [facility] RE[facility] DATE OF STUDY: 01/01/2020 to 01/02/2020 DATE OF REPORT: 01/02/2020 ACC: [id number] Start time: 11:45 on 01/01/2020 Stop time: 11:45 on 01/02/2020 ICD-10: R56.9 CPT Code: 31785 HISTORY: 39 y/o male with witnessed seizures. MEDICATIONS THAT COULD AFFECT EEG: Precedex, Keppra, Norvasc, Adrenalin, Tylenol, Cardene, Dextrose, Kayciel, Zofran, NS, Baker, Coreg, Apresoline, Sublimaze, Ativan, TECHNICAL SUMMARY: This is a digital video-EEG recorded with 32 input channels reviewed with bipolar and referential montages using the modified combinatorial system nomenclature. Patient was continuously monitored by qualified technologists and data was available to faculty at any time. DESCRIPTION OF RECORD: During the maximally alert state a 7 Hz posterior dominant rhythm was seen that was symmetric, slightly reactive to eye opening and poorly regulated. More anteriorly, low voltage frontocentral theta predominated. Drowsinesswas characterized by alpha attenuation and increased frontocentral theta. Stage 2 sleep was reachedcharacterized by symmetric sleep spindles and K-complexes. There were multiple episodes of paroxysmal high voltage 1 Hz rhythmic delta lasting a few seconds up to 15 seconds. Technologist did not report symptoms or signs of a seizure on these occasions. HV: Hyperventilation was not performed. PHOTIC STIMULATION: Photic stimulation was done from 1-30 Hz; no photic driving was seen; photoparoxysmal responses were absent. EKG: sinus rhythm IMPRESSION: Abnormal Awake and Asleep EEG 1. Generalized high voltage rhythmic delta slowing, intermittent 2. Generalized theta slowing 3. Posterior background slowing CLINICAL CORRELATION: The slowing seen is consistent with a mild degree of encephalopathy. The high voltage intermittent paroxysmal rhythmic delta slowing is of unclearsignificance but may be related to sedating medications administered. An EEG without epileptiform discharges does not exclude the possibility of epilepsy. It the clinical suspicion of epilepsy remains, consider additional EEG recordings. Julio Cesar Marin M.D., KAYLA Professor of Neurology [facility] of Medicine Director, [facility] Epilepsy Center Head, [facility] Neurophysiology Lab EEG 12-26 HR Continuous Monitoring with [id number] 16:44:00Interface, External Ris In - 01/02/2020 4:44 PM CSTBAYLOR STValentin [facility] ELECTROENCEPHALOGRAM REPORT DATE OF STUDY: 01/01/2020 to 01/02/2020 DATE OF REPORT: 01/02/2020 ACC: [id number] Start time: 11:45 on 01/01/2020 Stop time: 11:45 on 01/02/2020 ICD-10: R56.9 CPT Code: 87115 HISTORY: 39 y/omale with witnessed seizures. MEDICATIONS THAT COULD AFFECT EEG: Precedex, Keppra, Norvasc, Adrenalin, Tylenol, Cardene, Dextrose, Kayciel, Zofran, NS, Baker, Coreg, Apresoline, Sublimaze, Ativan, TECHNICAL SUMMARY: This is a digital video-EEG recorded with 32 input channels reviewed with bipolar and referential montages using the modified combinatorial system nomenclature. Patient was continuously monitored by qualified technologists and data was available to faculty at any time. DESCRIPTION OF RECORD: During the maximally alert state a 7 Hz posterior dominant rhythm was seen that wassymmetric, slightly reactive to eye opening and poorly regulated. More anteriorly, low voltage frontocentral theta predominated. Drowsiness was characterized by alpha attenuation and increased frontocentral theta. Stage 2 sleep was reached characterized by symmetric sleep spindles and K-complexes.There were multiple episodes of paroxysmal high voltage 1 Hz rhythmic delta lasting a few seconds upto 15 seconds. Technologist did not report symptoms or signs of a seizure on these occasions. HV: Hyperventilation was not performed. PHOTIC STIMULATION: Photic stimulation was done from 1-30 Hz; no photic driving was seen; photoparoxysmal responses were absent. EKG: sinus rhythm IMPRESSION: Abnormal Awake and Asleep EEG 1. Generalized high voltage rhythmic delta slowing, intermittent2. Generalized theta slowing 3. Posterior background slowing CLINICAL CORRELATION: The slowing seen is consistent with a mild degree of encephalopathy. The high voltage intermittent paroxysmal rhythmic delta slowing is of unclear significance but may be related to sedating medications administered. An EEG without epileptiform discharges does not exclude the possibility of epilepsy. It the clinical suspicion of epilepsy remains, consider additional EEG recordings. Julio Cesar Marin M.D., KAYLA Professor of Neurology [facility] Director, [facility] Epilepsy[facility] Head, [facility] 16:36:00 Test Item Value Reference Range Interpretation Comments Potassium (test code = 3.8 meq/L 3.5-5.1 Speci men 2823-3) moderately hemolyzed JACKSON (test code = JACKSON) Lean Leader ID - BS Lab Interpretation Normal (test code = 04073-6) [facility] 16:36:00 Test Item Value Reference Range Interpretation Comments MAGNESIUM (BEAKER) 2.3 mg/dL 1.6-2.6 Specimen moderately (test code = 627) hemolyzed Lean Leader ID - [id number] 16:36:00 Test Item Value Reference Range Interpretation Comments POTASSIUM (BEAKER) 3.8 meq/L 3.5-5.1 Specimen moderately (test code = 379) hemolyzed Lean Leader ID - [id number] 16:25:00 Test Item Value Reference Range Interpretation Comments Sodium (test code = 2951-2) 139 meq/L 136-145 JACKSON (test code = JACKSON) Lean Leader ID - BS Lab Interpretation (test Normal code = 39850-7) [facility] 16:25[facility]00 Test Item Value Reference Range Interpretation Comments SODIUM (BEAKER) (test code = 381) 139 meq/L 136-145 Lean Leader ID - BSPOCT-GLUCOSE [id number] 16:01:00 Test Item Value Reference Range Interpretation Comments POC-GLUCOSE METER 236 mg/dL 70-110 H : [facility] (test code = [facility], 153) [address]: Lean Leader/Techni rosio ID = [id number] for Ksenia Spaulding POCT-GLUCOSE [id number] 11:51:00 Test Item Value Reference Range Interpretation Comments POC-GLUCOSE METER 166 mg/dL 70-110 H : Notified RN/MD: ([facility] (test code = TESTED AT [facility] 6720 1538) [facility], [address]: Lean Leader/Techni rosio ID = [id number] for Alison Luong POCT-GLUCOSE [id number] 06:09:00 Test Item Value Reference Range Interpretation Comments POC-GLUCOSE METER 211 mg/dL 70-110 H : [facility] ([facility] (test code = [facility], 153) [address]: Lean Leader/Techni rosio ID = [id number] for VA RELA, NOEMÍ BASIC METABOLIC [id number] 05:39:00 Test Item Value Reference Range Interpretation Comments SODIUM (BEAKER) 139 meq/L 136-145 (test code = 381) POTASSIUM (BEAKER) 3.5 meq/L 3.5-5.1 (test code = 379) CHLORIDE (BEAKER) 109 meq/L 98-107 H (test code = 382) CO2 (BEAKER) (test 23 meq/L 22-29 code = 355) BLOOD UREA NITROGEN 13 mg/dL 7-21 (BEAKER) (test code = 354) CREATININE (BEAKER) 0.83 mg/dL 0.57-1.25 (test code = 358) GLUCOSE RANDOM 213 mg/dL 70-105 H (BEAKER) (test code = 652) CALCIUM (BEAKER) 7.9 mg/dL 8.4-10.2 L (test code = 697) EGFR (BEAKER) (test 104 mL/min/1.73 ESTIM ATED GFR IS code = 1092) sq m NOT ACCURATE CREATININE CLEARANCE IN PREDICTING GLOMERULAR FILTRATION RATE . ESTIMATED GFR I S NOT APPLICABLE FOR DIALYSIS PATIEN TS. Lean Leader ID - [id number] 05:37:00 Test Item Value Reference Range Interpretation Comments MAGNESIUM (BEAKER) (test code = 2.1 mg/dL 1.6-2.6 627) Lean Leader ID - [id number] 05:37:00 Test Item Value Reference Range Interpretation Comments PHOSPHORUS (BEAKER) (test code = 2.9 mg/dL 2.3-4.7 604) Lean Leader ID - EDASIU/S, RENAL WITH [id number] 05:08:00Reason for exam:- >Secondary hypertension workup [facility]ENTER[facility]: [facility]ICA BELL : 1980 Sex: MFINAL REPORT Ultrasound of the Kidneys Clinical History: Secondary hypertension workup Comparison: None. Discussion: Sonographic evaluation of the kidneys was performed with Doppler. The study is limited due to patient body habitus and inability to cooperate with theexam. Right kidney: 13.4 x 5.9 x 5.8 cm, with cortical thickness of 1.7 cm. Normal cortical echogenicity. No mass. No shadowing calculus. No hydronephrosis. Left kidney: Not visualized due to obscuration by bowel gas. Doppler evaluation of right main renal artery and vein demonstrates patency. Theresistive indices in the right upper, mid and lower poles are 0.8, 0.6 and 0.6 respectively. The IVCand aorta were not visualized due to obscuration by bowel gas. Bladder: Distended and thin-walled. I mpression:Limited exam.No right hydronephrosis.Elevated resistive index in the right renal upper pole. Signed: Sayra [facility]ezumaepsc[facility] Verified Date/Time: 01/02/2020 05:08:56 US Renal with [id number] 05:08:00Interface, External Ris In - 01/02/2020 5:11 AM CSTFINAL REPORT Ultrasound of the Kidneys Clinical History: Secondary hypertension workup Comparison: None. Discussion: Sonographic evaluation of the kidneys was performed with Doppler. The study is limited due to patient body habitus and inability to cooperate with the exam. Right kidney: 13.4 x 5.9 x 5.8 cm, with cortical thic kness of 1.7 cm. Normal cortical echogenicity. No mass. No shadowing calculus. No hydronephrosis.Left kidney: Not visualized due to obscuration by bowel gas. Doppler evaluation of right main renal artery and vein demonstrates patency. The resistive indices in the right upper, mid and lower poles are 0.8, 0.6 and 0.6 respectively. The IVC and aorta were not visualized due to obscuration by bowel gas. Bladder: Distended and thin-walled. Impression:Limited exam.No right hydronephrosis.Elevated resistive index in the right renal upper pole. Signed: Sayra Moctezumaeport Verified Date/Time: 01/02/2020 05:08:56 [facility] W/PLT COUNT & AUTO [id number] 04:59:00 Test Item Value Reference Range Interpretation Comments WHITE BLOOD CELL COUNT (BEAKER) 8.7 K/ L 3.5-10.5 (test code = 775) RED BLOOD CELL COUNT (BEAKER) 4.12 M/ L 4.63-6.08 L (test code = 761) HEMOGLOBIN (BEAKER) (test code = 12.0 GM/DL 13.7-17.5 L 410) HEMATOCRIT (BEAKER) (test code = 36.6 % 40.1-51.0 L 411) MEAN CORPUSCULAR VOLUME (BEAKER) 88.8 fL 79.0-92.2 (test code = 753) MEAN CORPUSCULAR HEMOGLOBIN 29.1 pg 25.7-32.2 (BEAKER) (test code = 751) MEAN CORPUSCULAR HEMOGLOBIN CONC 32.8 GM/DL 32.3-36.5 (BEAKER) (test code = 752) RED CELL DISTRIBUTION WIDTH 13.5 % 11.6-14.4 (BEAKER) (test code = 412) PLATELET COUNT (BEAKER) (test 188 K/CU MM 150-450 code = 756) MEAN PLATELET VOLUME (BEAKER) 10.9 fL 9.4-12.4 (test code = 754) NUCLEATED RED BLOOD CELLS 0 /100 WBC 0-0 (BEAKER) (test code = 413) NEUTROPHILS RELATIVE PERCENT 68 % (BEAKER) (test code = 429) LYMPHOCYTES RELATIVE PERCENT 21 % (BEAKER) (test code = 430) MONOCYTES RELATIVE PERCENT 8 % (BEAKER) (test code = 431) EOSINOPHILS RELATIVE PERCENT 2 % (BEAKER) (test code = 432) BASOPHILS RELATIVE PERCENT 0 % (BEAKER) (test code = 437) NEUTROPHILS ABSOLUTE COUNT 5.91 K/ L 1.78-5.38 H (BEAKER) (test code = 670) LYMPHOCYTES ABSOLUTE COUNT 1.83 K/ L 1.32-3.57 (BEAKER) (test code = 414) MONOCYTES ABSOLUTE COUNT (BEAKER) 0.67 K/ L 0.30-0.82 (test code = 415) EOSINOPHILS ABSOLUTE COUNT 0.17 K/ L 0.04-0.54 (BEAKER) (test code = 416) BASOPHILS ABSOLUTE COUNT (BEAKER) 0.03 K/ L 0.01-0.08 (test code = 417) IMMATURE GRANULOCYTES-RELATIVE 1 % 0-1 PERCENT (BEAKER) (test code = 2801) POCT-GLUCOSE [id number] 01:43:00 Test Item Value Reference Range Interpretation Comments POC-GLUCOSE METER 211 mg/dL 70-110 H : TESTED A T [facility] 6720 (BEAKER) (test code = [facility], 1538) 98994: Lean Leader/Techni rosio ID = [id number] for JOE ARNOLD POCT-GLUCOSE [id number] 22:49:00 Test Item Value Reference Range Interpretation Comments POC-GLUCOSE METER 209 mg/dL 70-110 H : TESTED A T [facility] 6720 (BEAKER) (test code = [facility], 1538) 72221: Lean Leader/Techni rosio ID = [id number] for JOE ARNOLD POCT-GLUCOSE [id number] 17:08:00 Test Item Value Reference Range Interpretation Comments POC-GLUCOSE METER 202 mg/dL 70-110 H : TESTED A T [facility] 6720 (BEAKER) (test code = [facility], 1538) 58805: Lean Leader/Techni rosio ID = [id number] for Carlie Martinez Hepatic function [id number] 14:54:00 Test Item Value Reference Range Interpretation Comments Protein, Total (test 1.1 See_Comment L [Autom ated code = 2885-2) message] The system which generated this result transmit ama reference range : 6.0 - 8.3 gm/dL . The reference range was not u sed to interpret th is result as normal/abnormal . Albumin (test code = 0.7 g/dL 3.5-5 L 75969-5) Total Bilirubin (test 0.1 mg/dL 0.2-1.2 L code = 1974-2) Bilirubin, Direct 0.1 mg/dL 0.1-0.5 (test code = 1967-7) Alkaline Phosphatase 15 U/L 40-150 L (test code = 6768-6) AST (test code = 7 U/L 5-34 1920-8) ALT (test code = 7 U/L 6-55 1742-6) JACKSON (test code = JACKSON) Lean Leader ID - JONA Lab Interpretation Abnormal (test code = 95816-0) [facility] Center[facility] FUNCTION [id number] 14:54:00 Test Item Value Reference Range Interpretation Comments TOTAL PROTEIN (BEAKER) (test code = 1.1 gm/dL 6.0-8.3 L 770) ALBUMIN (BEAKER) (test code = 1145) 0.7 g/dL 3.5-5.0 L BILIRUBIN TOTAL (BEAKER) (test code 0.1 mg/dL 0.2-1.2 L = 377) BILIRUBIN DIRECT (BEAKER) (test 0.1 mg/dL 0.1-0.5 code = 706) ALKALINE PHOSPHATASE (BEAKER) (test 15 U/L 40-150 L code = 346) AST (SGOT) (BEAKER) (test code = 7 U/L 5-34 353) ALT (SGPT) (BEAKER) (test code = 7 U/L 6-55 347) Lean Leader ID - EDASIPOCT-GLUCOSE [id number] 12:20:00 Test Item Value Reference Range Interpretation Comments POC-GLUCOSE METER 241 mg/dL 70-110 H : TESTED A T [facility] 6720 (BEAKER) (test code = [facility] [place], 1538) 43983: Lean Leader/Techni rosio ID = [id number] for Carlie Martinez CT, BRAIN, WITHOUT [id number] 10:45:00Unlisted Reason for Exam - Click Yes and Enter Reason Below->YesUnlisted Reason for Exam->worsening confusionPROVID[facility]ACHName: [facility]ER[facility] BELL : 1980 Sex: MFINAL REPORT CT, BRAIN, WITHOUT CONTRAST INDICATION: Unlisted Reason for Examworsening confusion TECHNIQUE: Noncontrast axial imaging was obtained from the vertex to the skull base. Axial images were reconstructed using a bone algorithm. DOSE REDUCTION: Dose modulation, iterative reconstruction, and/or weight-based adjustment of the mA/kV was utilized to reduce the radiation dose to as low as reasonably achievable. COMPARISON: CTA 12/29/2019 FINDINGS: Intracranial: Exam is severely limited by motion and incomplete imaging of the intracranial contents. No subarachnoid hemorrhage within the right sylvian fissure appears to have decreased slightly since 12/29/2019. No definite new site of hemorrhage, although again the brain is incompletely imaged. No mass effect. No hydrocephalus. Osseous structures: No fracture. No suspicious lesion. Paranasal sinuses and mastoidair cells: No evidence of sinusitis. Mastoids are clear. Orbital contents: Globes are intact. IMPRESSION: 1.Intracranial contents are incompletely imaged, and the exam is severely degraded by motion.2.S ubarachnoid hemorrhage within the right sylvian fissure appears to be decreasing. No new site of hemorrhage is visualized, and there is no mass effect. Patient will return for repeat imaging at a latertime. Signed: Gabby Dunn MDReport Verified Date/Time: 01/01/2020 10:45:20 CT brain without IV [id number] 10:45:00Interface, External Ris In - 01/01/2020 10:[address], BRAIN, WITHOUT CONTRAST INDICATION: Unlisted Reason for Examworsening confusion TECHNIQUE: Noncontrast axial imaging was obtained from the vertex to the skull base. Axial images were reconstructed using a bone algorithm. DOSE REDUCTION: Dose modulation, iterative reconstruction, and/or weight-based adjustment of the mA/kV was utilized to reduce the radiation dose to as low as reasonably achievable. COMPARISON: CTA 12/29/2019 FINDINGS: Intracranial: Exam is severely limited by motion and incomplete imaging ofthe intracranial contents. No subarachnoid hemorrhage within the right sylvian fissure appears to have decreased slightly since 12/29/2019. No definite new site of hemorrhage, although again the brain is incompletely imaged. No mass effect. No hydrocephalus. Osseous structures: No fracture. No suspicious lesion. Paranasal sinuses and mastoid air cells: No evidence of sinusitis. Mastoids are clear. Orbital contents: Globes are intact. IMPRESSION: 1.Intracranial contents are incompletely imaged, and the exam is severely degraded by motion.2.Subarachnoid hemorrhage within the right sylvian fissure appears to be decreasing. No new site of hemorrhage is visualized, and there is no mass effect. Patient will return for repeat imaging at a later time. Signed: Gabby Dunn Verified Date/Time: 01/01/2020 10:45:20 [facility] [id number] 08:51:02Ejection [facility] Left Impression1. There is no deep venous obstruction in the jugular, subclavian, axillary,brachial, radial or ulnar veins where visualized.2. There is total mildly echogenic superficial venous obstruction in thecephalic vein(forearm).3. The superficial basilic vein is not visualized. Conclusions Summary Venous duplex imaging and compression of the left upper extremity was performed. The veins were technically difficult to visualize due to edema, patient in chair and patient body habitus. The left deep venous system was patent and compressible with no evidence of thrombus where visualized. The left superficial venous system was positive with acute thrombus. Signature Velocities are measured in cm/s ; Diameters are measured in cm Interface, External Ris In - 01/01/2020 8:51 AM CSTPV LAB - Upper Extremities Veins Demographics Patient Name JERICA BELL Date of Study 12/31/2019 JUSTIN Age 39 Visit Number [id number] Gender Male Accession Number [id number] Date of 1980 Referring [facility] Room Number 7410 Physician Darcy Computer Service Technician Zeynep Flores Interpreting Leslye Harvey T Physician ProcedureType of Study: Veins: Upper Extremities Veins, VENOUS DOPPLER ARM, LEFT. Indications for Study:R/O DVT.Patient Status:STAT.Study Location:Portable.Technical Quality:Technically Difficult. - Results were reported to:EMMANUEL Croft @ 20:40.Risk FactorsHistory of Disease+ + + +!Diagnosis !Date !Comments !+ + + --------+!History/Risk Factors: !12/31/2019!LUE swelling !! ! !LUE invasive line !+ +------ ----+ +ImpressionsLeft Impression1. There is no deep venous obstruction in the jugular, subclavian, axillary,brachial, radial or ulnar veins where visualized.2. There is total mildly echogenic superficial venous obstruction in thecephalic vein(forearm).3. The superficial basilic vein is not visualized. Conclusions Summary Venous duplex imaging and compression of the leftupper extremity was performed. The veins were technically difficult to visualize due to edema, patient in chair and patient body habitus. The left deep venous system was patent and compressible with noevidence of thrombus where visualized. The left superficial venous system was positive with acute thrombus. Signature Velocities are measured in cm/s ; Diameters are measured in [facility] W/PLT COUNT & AUTO [id number] 06:59:00 Test Item Value Reference Range Interpretation Comments WHITE BLOOD CELL COUNT (BEAKER) 14.7 K/ L 3.5-10.5 H (test code = 775) RED BLOOD CELL COUNT (BEAKER) 4.44 M/ L 4.63-6.08 L (test code = 761) HEMOGLOBIN (BEAKER) (test code = 13.1 GM/DL 13.7-17.5 L 410) HEMATOCRIT (BEAKER) (test code = 38.9 % 40.1-51.0 L 411) MEAN CORPUSCULAR VOLUME (BEAKER) 87.6 fL 79.0-92.2 (test code = 753) MEAN CORPUSCULAR HEMOGLOBIN 29.5 pg 25.7-32.2 (BEAKER) (test code = 751) MEAN CORPUSCULAR HEMOGLOBIN CONC 33.7 GM/DL 32.3-36.5 (BEAKER) (test code = 752) RED CELL DISTRIBUTION WIDTH 13.5 % 11.6-14.4 (BEAKER) (test code = 412) PLATELET COUNT (BEAKER) (test 237 K/CU MM 150-450 code = 756) MEAN PLATELET VOLUME (BEAKER) 11.2 fL 9.4-12.4 (test code = 754) NUCLEATED RED BLOOD CELLS 0 /100 WBC 0-0 (BEAKER) (test code = 413) NEUTROPHILS RELATIVE PERCENT 80 % (BEAKER) (test code = 429) LYMPHOCYTES RELATIVE PERCENT 12 % (BEAKER) (test code = 430) MONOCYTES RELATIVE PERCENT 6 % (BEAKER) (test code = 431) EOSINOPHILS RELATIVE PERCENT 1 % (BEAKER) (test code = 432) BASOPHILS RELATIVE PERCENT 0 % (BEAKER) (test code = 437) NEUTROPHILS ABSOLUTE COUNT 11.75 K/ L 1.78-5.38 H (BEAKER) (test code = 670) LYMPHOCYTES ABSOLUTE COUNT 1.74 K/ L 1.32-3.57 (BEAKER) (test code = 414) MONOCYTES ABSOLUTE COUNT (BEAKER) 0.84 K/ L 0.30-0.82 H (test code = 415) EOSINOPHILS ABSOLUTE COUNT 0.15 K/ L 0.04-0.54 (BEAKER) (test code = 416) BASOPHILS ABSOLUTE COUNT (BEAKER) 0.04 K/ L 0.01-0.08 (test code = 417) IMMATURE GRANULOCYTES-RELATIVE 1 % 0-1 PERCENT (BEAKER) (test code = 2801) TSH/Free T4 If [id number] 06:54:00 Test Item Value Reference Range Interpretation Comments TSH (test code = 0.511 See_Comment [Automated 02962-6) message] The system which generated this result transmit ama reference range : 0.350 - 4.940 uIU/mL. The reference range was not used to interpret this result as normal/abnormal . JACKSON (test code = JACKSON) Lean Leader ID - EDASI Lab Interpretation Normal (test code = 24491-0) [facility] CenterTSH/FREE T4 IF [id number] 06:54:00 Test Item Value Reference Range Interpretation Comments THYROID STIMULATING HORMONE 0.511 uIU/mL 0.350-4.940 (BEAKER) (test code = 772) Lean Leader ID - EDASIPOCT-GLUCOSE [id number] 06:37:00 Test Item Value Reference Range Interpretation Comments POC-GLUCOSE METER 295 mg/dL 70-110 H : TESTED A T [facility] 6720 (BEAKER) (test code = BANNER Jonathan [facility], 1538) 18046: Lean Leader/Techni rosio ID = [id number] for JOE ARNOLD [id number] 06:21:00 Test Item Value Reference Range Interpretation Comments MAGNESIUM (BEAKER) 2.0 mg/dL 1.6-2.6 Specimen slightly (test code = 627) hemolyzed Lean Leader ID - [id number] 06:21:00 Test Item Value Reference Range Interpretation Comments PHOSPHORUS (BEAKER) 2.6 mg/dL 2.3-4.7 Specimen slightly (test code = 604) hemolyzed Lean Leader ID - EDASIBASIC METABOLIC [id number] 06:21:00 Test Item Value Reference Range Interpretation Comments SODIUM (BEAKER) 129 meq/L 136-145 L (test code = 381) POTASSIUM (BEAKER) 4.1 meq/L 3.5-5.1 Specimen slightly (test code = 379) hemolyzed CHLORIDE (BEAKER) 100 meq/L 98-107 (test code = 382) CO2 (BEAKER) (test 21 meq/L 22-29 L code = 355) BLOOD UREA NITROGEN 18 mg/dL 7-21 (BEAKER) (test code = 354) CREATININE (BEAKER) 0.82 mg/dL 0.57-1.25 Specimen slightly (test code = 358) hemolyzed GLUCOSE RANDOM 299 mg/dL 70-105 H (BEAKER) (test code = 652) CALCIUM (BEAKER) 8.5 mg/dL 8.4-10.2 (test code = 697) EGFR (BEAKER) (test 106 mL/min/1.73 ESTIM ATED GFR IS code = 1092) sq m NOT ACCURATE CREATININE CLEARANCE IN PREDICTING GLOMERULAR FILTRATION RATE . ESTIMATED GFR I S NOT APPLICABLE FOR DIALYSIS PATIEN TS. Lean Leader ID - EDASIPOCT-GLUCOSE [id number] 00:50:00 Test Item Value Reference Range Interpretation Comments POC-GLUCOSE METER 273 mg/dL 70-110 H : TESTED A T [facility] 6720 (BEAKER) (test code = BANNER Jonathan [facility], 1538) 33304: Lean Leader/Techni rosio ID = [id number] for [facility] RELA, NOEMÍ POCT-GLUCOSE [id number] 21:04:00 Test Item Value Reference Range Interpretation Comments POC-GLUCOSE METER 272 mg/dL 70-110 H : [facility] ([facility]ER) (test code = DENIZ Castillo [facility], 1538) 39332: Lean Leader/Techni rosio ID = [id number] for JOE ARNOLD Urinalysis Microscopic [id number] 18:32:00 Test Item Value Reference Range Interpretation Comments RBC, UA (test 0 See_Comment [Automated me ssage] code = 38604-8) The system [employer] [facility] generated this result transmit ama reference range : /HPF. The refer ence range was not u sed to interpret th is result as normal/abnormal . WBC, UA (test 4 See_Comment [Automated me ssage] code = 5821-4) The system [employer] [facility] [facility] generated this result transmit ama reference range : /HPF. The refer ence range was not u sed to interpret th is result as normal/abnormal . Squam Epithel, UA <1 See_Comment [Automate d message] (test code = The system Doppelganger 21164-2) generated this result transmit ama reference range : /HPF. The refer ence range was not u sed to interpret th is result as normal/abnormal . Hyaline Casts, UA 2 See_Comment [Automate d message] (test code = The system Doppelganger 83866-8) generated this result transmit ama reference range : /LPF. The refer ence range was not u sed to interpret th is result as normal/abnormal . JACKSON (test code = Lean Leader ID - JACKSON) [facility] [id number] 18:32:00 Test Item Value Reference Range Interpretation Comments RBC UA (BEAKER) (test code = 519) 0 /HPF WBC UA (BEAKER) (test code = 520) 4 /HPF SQUAMOUS EPITHELIAL (BEAKER) (test < /HPF code = 516) HYALINE CASTS (BEAKER) (test code = 2 /LPF 514) Lean Leader ID - techUrinalysis with Microscopic If [id number] 18:28:00 Test Item Value Reference Range Interpretation Comments Color, UA (test code = Yellow 5778-6) Clarity, UA (test code = Clear 5767-9) Specific Forbes, UA (test 1.031 1.001-1.035 code = 5811-5) pH, UA (test code = 6.0 5.0-8.0 5803-2) Protein, UA (test code = 100 mg/dL Negative A 70871-5) Glucose, UA (test code = >1000 mg/dL Negative A 365) Ketones, UA (test code = 10 mg/dL Negative A 2514-8) Bilirubin, UA (test code = Negative Negative 03406-1) Blood, UA (test code = Moderate Negative A 15158-4) Nitrite, UA (test code = Negative Negative 5802-4) Leukocytes, UA (test code Negative Negative = 5799-2) Urobilinogen, UA (test 0.2 mg/dL 0.2-1 code = 46920-2) Specimen Source (test code = 2795) JACKSON (test code = JACKSON) Lean Leader ID - [auto] Lab Interpretation (test Abnormal code = 93445-3) [facility] WITH MICROSCOPIC IF [id number] 18:28:00 Test Item Value Reference Range Interpretation Comments COLOR (BEAKER) (test code = 470) Yellow CLARITY (BEAKER) (test code = Clear 469) SPECIFIC GRAVITY UA (BEAKER) 1.031 1.001-1.035 (test code = 468) PH UA (BEAKER) (test code = 467) 6.0 5.0-8.0 PROTEIN UA (BEAKER) (test code = 100 mg/dL Negative A 464) GLUCOSE UA (BEAKER) (test code = >1000 mg/dL Negative A 365) KETONES UA (BEAKER) (test code = 10 mg/dL Negative A 371) BILIRUBIN UA (BEAKER) (test code Negative Negative = 462) BLOOD UA (BEAKER) (test code = Moderate Negative A 461) NITRITE UA (BEAKER) (test code = Negative Negative 465) LEUKOCYTE ESTERASE UA (BEAKER) Negative Negative (test code = 466) UROBILINOGEN UA (BEAKER) (test 0.2 mg/dL 0.2-1.0 code = 463) SOURCE(BEAKER) (test code = 2795) Lean Leader ID - [auto]POCT-GLUCOSE [id number] 16:33:00 Test Item Value Reference Range Interpretation Comments POC-GLUCOSE METER 297 mg/dL 70-110 H : TESTED A T [facility] 6720 (BEAKER) (test code = DENIZ Castillo [facility], 1538) 60785: Lean Leader/Techni rosio ID = [id number] for JACOBO ENRIQUEZ POCT-GLUCOSE [id number] 11:42:00 Test Item Value Reference Range Interpretation Comments POC-GLUCOSE METER 249 mg/dL 70-110 H : TESTED A T [facility] 6720 (BEAKER) (test code = DENIZ Castillo [facility], 1538) 65295: Lean Leader/Techni rosio ID = [id number] for JACOBO ENRIQUEZ [id number] 09:19:00 Test Item Value Reference Range Interpretation Comments Cortisol, Total (test code 18.1 ug/dL 3.7-19.4 = 2755) JACKSON (test code = JACKSON) Lean Leader ID - SOLOMON M Lab Interpretation (test Normal code = 38481-6) [facility] [id number] 09:19:00 Test Item Value Reference Range Interpretation Comments CORTISOL, TOTAL (BEAKER) (test 18.1 ug/dL 3.7-19.4 code = 2755) Lean Leader ID - SOLOMON [id number] 08:58:00 Test Item Value Reference Range Interpretation Comments MAGNESIUM (BEAKER) 2.0 mg/dL 1.6-2.6 Specimen slightly (test code = 627) hemolyzed Lean Leader ID - SOLOMON [id number] 08:58:00 Test Item Value Reference Range Interpretation Comments PHOSPHORUS (BEAKER) 2.2 mg/dL 2.3-4.7 L Specimen slightly (test code = 604) hemolyzed Lean Leader ID - SOLOMON MBASIC METABOLIC [id number] 08:58:00 Test Item Value Reference Range Interpretation Comments SODIUM (BEAKER) 134 meq/L 136-145 L (test code = 381) POTASSIUM (BEAKER) 3.9 meq/L 3.5-5.1 Specimen slightly (test code = 379) hemolyzed CHLORIDE (BEAKER) 102 meq/L 98-107 (test code = 382) CO2 (BEAKER) (test 23 meq/L 22-29 code = 355) BLOOD UREA NITROGEN 11 mg/dL 7-21 (BEAKER) (test code = 354) CREATININE (BEAKER) 0.76 mg/dL 0.57-1.25 Specimen slightly (test code = 358) hemolyzed GLUCOSE RANDOM 278 mg/dL 70-105 H (BEAKER) (test code = 652) CALCIUM (BEAKER) 8.3 mg/dL 8.4-10.2 L (test code = 697) EGFR (BEAKER) (test 115 mL/min/1.73 ESTIM ATED GFR IS code = 1092) sq m NOT ACCURATE CREATININE CLEARANCE IN PREDICTING GLOMERULAR FILTRATION RATE . ESTIMATED GFR I S NOT APPLICABLE FOR DIALYSIS PATIEN TS. Lean Leader ID - SOLOMON MSpecimen slightly ictericCBC W/PLT COUNT & AUTO [id number] 08:45:00 Test Item Value Reference Range Interpretation Comments WHITE BLOOD CELL COUNT (BEAKER) 11.3 K/ L 3.5-10.5 H (test code = 775) RED BLOOD CELL COUNT (BEAKER) 4.58 M/ L 4.63-6.08 L (test code = 761) HEMOGLOBIN (BEAKER) (test code = 13.3 GM/DL 13.7-17.5 L 410) HEMATOCRIT (BEAKER) (test code = 40.6 % 40.1-51.0 411) MEAN CORPUSCULAR VOLUME (BEAKER) 88.6 fL 79.0-92.2 (test code = 753) MEAN CORPUSCULAR HEMOGLOBIN 29.0 pg 25.7-32.2 (BEAKER) (test code = 751) MEAN CORPUSCULAR HEMOGLOBIN CONC 32.8 GM/DL 32.3-36.5 (BEAKER) (test code = 752) RED CELL DISTRIBUTION WIDTH 13.7 % 11.6-14.4 (BEAKER) (test code = 412) PLATELET COUNT (BEAKER) (test 201 K/CU MM 150-450 code = 756) MEAN PLATELET VOLUME (BEAKER) 10.4 fL 9.4-12.4 (test code = 754) NUCLEATED RED BLOOD CELLS 0 /100 WBC 0-0 (BEAKER) (test code = 413) NEUTROPHILS RELATIVE PERCENT 76 % (BEAKER) (test code = 429) LYMPHOCYTES RELATIVE PERCENT 15 % (BEAKER) (test code = 430) MONOCYTES RELATIVE PERCENT 7 % (BEAKER) (test code = 431) EOSINOPHILS RELATIVE PERCENT 1 % (BEAKER) (test code = 432) BASOPHILS RELATIVE PERCENT 0 % (BEAKER) (test code = 437) NEUTROPHILS ABSOLUTE COUNT 8.60 K/ L 1.78-5.38 H (BEAKER) (test code = 670) LYMPHOCYTES ABSOLUTE COUNT 1.63 K/ L 1.32-3.57 (BEAKER) (test code = 414) MONOCYTES ABSOLUTE COUNT (BEAKER) 0.75 K/ L 0.30-0.82 (test code = 415) EOSINOPHILS ABSOLUTE COUNT 0.15 K/ L 0.04-0.54 (BEAKER) (test code = 416) BASOPHILS ABSOLUTE COUNT (BEAKER) 0.04 K/ L 0.01-0.08 (test code = 417) IMMATURE GRANULOCYTES-RELATIVE 1 % 0-1 PERCENT (BEAKER) (test code = 2801) POCT-GLUCOSE [id number] 07:01:00 Test Item Value Reference Range Interpretation Comments POC-GLUCOSE METER 246 mg/dL 70-110 H : TESTED A T [facility] 6720 (BEAKER) (test code = [facility], 153) 11352: Lean Leader/Techni rosio ID = [id number] for [facility] NOEMÍ PINEDA POCT-GLUCOSE [id number] 02:35:00 Test Item Value Reference Range Interpretation Comments POC-GLUCOSE METER 223 mg/dL 70-110 H : TESTED A T [facility] 6720 (BEAKER) (test code = [facility], 153) 19079: Lean Leader/Techni rosio ID = [id number] for JASPREET PEREZ POCT-GLUCOSE [id number] 17:21:00 Test Item Value Reference Range Interpretation Comments POC-GLUCOSE METER 346 mg/dL 70-110 H : TESTED A T [facility] 6720 (BEAKER) (test code = [facility], 153) 57104: Lean Leader/Techni rosio ID = [id number] for [facility] BASIC METABOLIC [id number] 15:54:00 Test Item Value Reference Range Interpretation Comments SODIUM (BEAKER) 135 meq/L 136-145 L (test code = 381) POTASSIUM (BEAKER) 3.8 meq/L 3.5-5.1 (test code = 379) CHLORIDE (BEAKER) 104 meq/L 98-107 (test code = 382) CO2 (BEAKER) (test 21 meq/L 22-29 L This is a corrected code = 355) result. Previou s result was 22 m eq/L on 12/30/2019 a t 1541 INTERMEDIATE PROJECT MANAGER BLOOD UREA NITROGEN 8 mg/dL 7-21 (BEAKER) (test code = 354) CREATININE (BEAKER) 0.74 mg/dL 0.57-1.25 (test code = 358) GLUCOSE RANDOM 331 mg/dL 70-105 H This is a cor rected (BEAKER) (test code result. Previous = 652) result was 335 mg/dL on 2019 at 1541 INTERMEDIATE PROJECT MANAGER CALCIUM (BEAKER) 7.7 mg/dL 8.4-10.2 L (test code = 697) EGFR (BEAKER) (test 119 mL/min/1.73 ESTIM ATED GFR IS code = 1092) sq m NOT ACCURATE CREATININE CLEARANCE IN PREDICTING GLOMERULAR FILTRATION RATE . ESTIMATED GFR I S NOT APPLICABLE FOR DIALYSIS PATIEN TS. Lean Leader ID - ADMINOperator ID - ADMINOperator ID - ADMINHemoglobin A1c 2019-12-30 11:27:00 Test Item Value Reference Range Interpretation Comments Hemoglobin A1C (test code = 4548-4) 11.5 % 4.3-6.1 H Lab Interpretation (test code = Abnormal 66753-4) [facility] CenterHEMOGLOBIN [id number] 11:27:00 Test Item Value Reference Range Interpretation Comments HEMOGLOBIN A1C (BEAKER) (test code = 11.5 % 4.3-6.1 H 368) SARS-COV2/RT-PCR ([facility])2019-12-30 07:44:00 Test Item Value Reference Range Interpretation Comments SARS-COV2/RT-PCR (test Negative Not Detected, Negative, code = 6978385) See external report for linked test SARS-COV-2 PERFORMING LAB [facility] (test code = 8963650) Negative result for this test determines that SARS-CoV-2 RNA was not present in the specimen above the Limit of Detection (LOD). However, Negative results do not preclude SARS-CoV-2 infection and should not be used as the sole basis for treatment or patient management decisions. Negative results mustbe combined with clinical observations, patient history, and epidemiological information. A false negative result may occur if a specimen is improperly collected, transported or handled. A false negative result should be considered if patient's recent exposures or clinical presentation indicate that COVID-19 (SARS-CoV-2) is likely and diagnostic tests for other causes of illness are negative. Re-testing should be considered in cases of suspected false negatives.The limit of detection for this assay is 800 copies/mL.This SARS CoV-2 test is a real-time RT-PCR test intended for the qualitative detection of nucleic acid from SARS-CoV-2 in a nasopharyngeal swab specimen collected from individuals suspected of COVID-19 by their healthcare provider.This test has not been Food and Drug Administration (FDA) cleared or approved. This is a modified version of an approved Emergency Use Authorization (EUA) and is in the process of review by the FDA. Once authorized by the FDA, the issued EUA will be effective until the declaration that circumstances exist justifying the authorization of the emergency use of in vitro diagnostic tests for detection and/or diagnosis of COVID-19 is terminated under Section 564(b)(2) of the Act or the EUA is revoked under Section 564(g) of the Act.Fact Sheet for Healthcare Providers:https://www.LineaQuattro.PaeDae/sites/default/files/product/documents/Fact_Shee i_WT_Gxfymtyts_Nvsy_RDPU-MtG-1.pdfFact Sheet for Healthcare Patients:https://www.[employer].PaeDae/sites/default/files/product/ documents/Wqlm_Mdptj_Ibcroxsx_Fwyo_QQYT-ZdZ-1.pdfPerforming Laboratory:[facility], [place] [address]CJXZ-[id number] METER 2019-12-30 07:18:00 Test Item Value Reference Range Interpretation Comments POC-GLUCOSE METER 283 mg/dL 70-110 H : TESTED Stephen T [facility] 6720 (BEAKER) (test code = DENIZ Castillo [facility], 1538) [address]: Lean Leader/Techni rosio ID = [id number] for Michaela Marcos [id number] 05:43:00 Test Item Value Reference Range Interpretation Comments MAGNESIUM (BEAKER) (test code = 2.1 mg/dL 1.6-2.6 627) Lean Leader ID - [id number] 05:43:00 Test Item Value Reference Range Interpretation Comments PHOSPHORUS (BEAKER) (test code = 2.1 mg/dL 2.3-4.7 L 604) Lean Leader ID - DBBASIC METABOLIC [id number] 05:43:00 Test Item Value Reference Range Interpretation Comments SODIUM (BEAKER) 133 meq/L 136-145 L (test code = 381) POTASSIUM (BEAKER) 3.4 meq/L 3.5-5.1 L (test code = 379) CHLORIDE (BEAKER) 102 meq/L 98-107 (test code = 382) CO2 (BEAKER) (test 22 meq/L 22-29 code = 355) BLOOD UREA NITROGEN 8 mg/dL 7-21 (BEAKER) (test code = 354) CREATININE (BEAKER) 0.75 mg/dL 0.57-1.25 (test code = 358) GLUCOSE RANDOM 272 mg/dL 70-105 H (BEAKER) (test code = 652) CALCIUM (BEAKER) 7.6 mg/dL 8.4-10.2 L (test code = 697) EGFR (BEAKER) (test 117 mL/min/1.73 ESTIM ATED GFR IS code = 1092) sq m NOT ACCURATE CREATININE CLEARANCE IN PREDICTING GLOMERULAR FILTRATION RATE . ESTIMATED GFR I S NOT APPLICABLE FOR DIALYSIS PATIEN TS. Lean Leader ID - [id number] 04:33:00 Test Item Value Reference Range Interpretation Comments Fibrinogen (test code = 3255-7) 288 mg/dl 225-434 Lab Interpretation (test code = Normal 47980-5) [facility] 04:33:00 Test Item Value Reference Range Interpretation Comments PTT (test code = 85789-6) 27.7 See_Comment [ Automated message] The system Doppelganger generated this result transmitted ref erence range: 22.5 - 3 6.0 seconds. The re ference range was not u sed to interpret this result as normal/abnor mal. Lab Interpretation (test Normal code = 92936-7) [facility] CenterFIBRINOGEN2020-11-13 04:33:00 Test Item Value Reference Range Interpretation Comments FIBRINOGEN LEVEL (BEAKER) (test 288 mg/dl 225-434 code = 658) [id number] 04:33:00 Test Item Value Reference Range Interpretation Comments PARTIAL THROMBOPLASTIN TIME 27.7 seconds 22.5-36.0 (BEAKER) (test code = 760) Prothromin time/[id number] 04:32:00 Test Item Value Reference Interpretation Comments Range Protime (test code = 13.4 See_Comment [Autom ated 5902-2) message] The system which generated this result transmitted reference range : 11.9 - 14.2 seconds. The reference range was not used to interpret this result as normal/abnormal . INR (test code = 1.05 See_Comment [Automated 6301-6) message] The system which generated this result transmitted reference range : <=5.90. The reference range was not used to interpret this result as normal/abnormal . JACKSON (test code = Effective 07/14/2018: JACKSON) PT Reference Range ChangeNew: 11.9-14.2 Previous: 11.7-14.7 RECOMMENDED COUMADIN/WARFARIN INR THERAPY RANGESSTANDARD DOSE: 2.0-3.0 Includes: PROPHYLAXIS for venous thrombosis, systemic embolization; TREATMENT for venous thrombosis and/or pulmonary embolus.HIGH RISK: Target INR is 2.5-3.5 for patients wiht mechanical heart valves. Lab Interpretation Normal (test code = 79145-1) [facility] CenterPROTHROMBIN TIME/[id number] 04:32:00 Test Item Value Reference Range Interpretation Comments PROTIME (BEAKER) (test code = 13.4 seconds 11.9-14.2 759) INR (BEAKER) (test code = 370) 1.05 <=5.90 Effective 07/14/2018: PT Reference Range ChangeNew: 11.9-14.2 Previous: 11.7- 14.7RECOMMENDED COUMADIN/WARFARIN INR THERAPY RANGESSTANDARD DOSE: 2.0-3.0 Includes: PROPHYLAXIS for venous thrombosis, systemic embolization; TREATMENT for venous thrombosis and/or pulmonary embolus.HIGH RISK: Target INR is2.5-3.5 for patients wiht mechanical heart valves.CBC W/PLT COUNT & AUTO [id number] 04:26:00 Test Item Value Reference Range Interpretation Comments WHITE BLOOD CELL COUNT (BEAKER) 12.9 K/ L 3.5-10.5 H (test code = 775) RED BLOOD CELL COUNT (BEAKER) 4.54 M/ L 4.63-6.08 L (test code = 761) HEMOGLOBIN (BEAKER) (test code = 13.2 GM/DL 13.7-17.5 L 410) HEMATOCRIT (BEAKER) (test code = 39.7 % 40.1-51.0 L 411) MEAN CORPUSCULAR VOLUME (BEAKER) 87.4 fL 79.0-92.2 (test code = 753) MEAN CORPUSCULAR HEMOGLOBIN 29.1 pg 25.7-32.2 (BEAKER) (test code = 751) MEAN CORPUSCULAR HEMOGLOBIN CONC 33.2 GM/DL 32.3-36.5 (BEAKER) (test code = 752) RED CELL DISTRIBUTION WIDTH 13.2 % 11.6-14.4 (BEAKER) (test code = 412) PLATELET COUNT (BEAKER) (test 226 K/CU MM 150-450 code = 756) MEAN PLATELET VOLUME (BEAKER) 10.7 fL 9.4-12.4 (test code = 754) NUCLEATED RED BLOOD CELLS 0 /100 WBC 0-0 (BEAKER) (test code = 413) NEUTROPHILS RELATIVE PERCENT 75 % (BEAKER) (test code = 429) LYMPHOCYTES RELATIVE PERCENT 18 % (BEAKER) (test code = 430) MONOCYTES RELATIVE PERCENT 6 % (BEAKER) (test code = 431) EOSINOPHILS RELATIVE PERCENT 1 % (BEAKER) (test code = 432) BASOPHILS RELATIVE PERCENT 0 % (BEAKER) (test code = 437) NEUTROPHILS ABSOLUTE COUNT 9.58 K/ L 1.78-5.38 H (BEAKER) (test code = 670) LYMPHOCYTES ABSOLUTE COUNT 2.30 K/ L 1.32-3.57 (BEAKER) (test code = 414) MONOCYTES ABSOLUTE COUNT (BEAKER) 0.82 K/ L 0.30-0.82 (test code = 415) EOSINOPHILS ABSOLUTE COUNT 0.06 K/ L 0.04-0.54 (BEAKER) (test code = 416) BASOPHILS ABSOLUTE COUNT (BEAKER) 0.03 K/ L 0.01-0.08 (test code = 417) IMMATURE GRANULOCYTES-RELATIVE 1 % 0-1 PERCENT (BEAKER) (test code = 2801) POCT-GLUCOSE [id number] 23:38:00 Test Item Value Reference Range Interpretation Comments POC-GLUCOSE METER 256 mg/dL 70-110 H : TESTED A T [facility] 6720 (FELIPE) (test code = DENIZ [place], 1538) [address]: Lean Leader/Techni rosio ID = [id number] for JOE ARNOLD RAD, CHEST, 1 VIEW, NON [id number] 23:12:00Reason for exam:->pre-op assessmentShould this be performed at the bedside?->Yes [facility] 1980 Sex: MFINAL REPORT RAD, CHEST, 1 VIEW, NON DEPT TECHNIQUE: Frontal view of the chest. INDICATION: pre-op assessment. COMPARISON: None FINDINGS/IMPRESSION: Lines/Tubes: None Lungs/pleura: Hypoinflated. No focal consolidation. No definite interstitial edema given hypoinflatedtechnique. No pleural effusion. No pneumothorax. Heart and Mediastinum: Mildly prominent cardiac silhouette, accentuated by technique. Soft Tissues and Bones: No acute osseous abnormality. Signed: Milana Walker Verified Date/Time: 12/29/2019 23:12:37 Reading Location: [address] Transitional Reading Room XR chest 1 view portable / bedside 2019-12-29 23:12:00Interface, External Ris In - 12/29/2019 11:14 PM CSTFINAL REPORT RAD, CHEST, 1 VIEW, NON DEPT TECHNIQUE: Frontal view of the chest. INDICATION: pre-op assessment. COMPARISON: None FINDINGS/IMPRESSION: Lines/Tubes: None Lungs/pleura: Hypoinflated. No focal consolidation. No definite interstitial edema given hypoinflated technique. No pleural effusion. No pneumothorax. Heart and Mediastinum: Mildly prominent cardiac silhouette, accentuated by technique. Soft Tissues and Bones: No acute osseous abnormality. Signed: Milana Walker MDReport Verified Date/Time: 12/29/2019 23:12:37 Reading Location: [address] Transitional Reading Room [facility], [id number] 21:49:00 Test Item Value Reference Range Interpretation Comments ABO/RH AUTOMATED (BEAKER) (test O NEGATIVE code = 2260) Ab Scrn (test code = 890-4) NEGATIVE [facility] CenterABORH, [id number] 20:05:00 Test Item Value Reference Range Interpretation Comments ABO Grouping (test code = 2588) O Rh Factor (test code = 2589) NEG [facility] CenterBASIC METABOLIC [id number] 18:39:00 Test Item Value Reference Range Interpretation Comments SODIUM (BEAKER) 134 meq/L 136-145 L (test code = 381) POTASSIUM (BEAKER) 3.5 meq/L 3.5-5.1 (test code = 379) CHLORIDE (BEAKER) 100 meq/L 98-107 (test code = 382) CO2 (BEAKER) (test 25 meq/L 22-29 code = 355) BLOOD UREA NITROGEN 8 mg/dL 7-21 (BEAKER) (test code = 354) CREATININE (BEAKER) 0.80 mg/dL 0.57-1.25 (test code = 358) GLUCOSE RANDOM 318 mg/dL 70-105 H (BEAKER) (test code = 652) CALCIUM (BEAKER) 8.3 mg/dL 8.4-10.2 L (test code = 697) EGFR (BEAKER) (test 109 mL/min/1.73 ESTIM ATED GFR IS code = 1092) sq m NOT ACCURATE CREATININE CLEARANCE IN PREDICTING GLOMERULAR FILTRATION RATE . ESTIMATED GFR I S NOT APPLICABLE FOR DIALYSIS PATIEN TS. Lean Leader ID - [id number] 18:39:00 Test Item Value Reference Range Interpretation Comments MAGNESIUM (BEAKER) (test code = 1.8 mg/dL 1.6-2.6 627) Lean Leader ID - [id number] 18:39:00 Test Item Value Reference Range Interpretation Comments PHOSPHORUS (BEAKER) (test code = 2.6 mg/dL 2.3-4.7 604) Lean Leader ID - DBPROTHROMBIN [id number] 18:28:00 Test Item Value Reference Range Interpretation Comments PROTIME (BEAKER) (test code = 13.3 seconds 11.9-14.2 759) INR (BEAKER) (test code = 370) 1.04 <=5.90 Effective 07/14/2018: PT Reference Range ChangeNew: 11.9-14.2 Previous: 11.7- 14.7RECOMMENDED COUMADIN/WARFARIN INR THERAPY RANGESSTANDARD DOSE: 2.0-3.0 Includes: PROPHYLAXIS for venous thrombosis, systemic embolization; TREATMENT for venous thrombosis and/or pulmonary embolus.HIGH RISK: Target INR is2.5-3.5 for patients wiht mechanical heart valves.[id number] 18:28:00 Test Item Value Reference Range Interpretation Comments PARTIAL THROMBOPLASTIN TIME 26.4 seconds 22.5-36.0 (BEAKER) (test code = 760) CBC W/PLT COUNT & AUTO [id number] 18:26:00 Test Item Value Reference Range Interpretation Comments WHITE BLOOD CELL COUNT (BEAKER) 11.2 K/ L 3.5-10.5 H (test code = 775) RED BLOOD CELL COUNT (BEAKER) 4.65 M/ L 4.63-6.08 (test code = 761) HEMOGLOBIN (BEAKER) (test code = 13.5 GM/DL 13.7-17.5 L 410) HEMATOCRIT (BEAKER) (test code = 39.2 % 40.1-51.0 L 411) MEAN CORPUSCULAR VOLUME (BEAKER) 84.3 fL 79.0-92.2 (test code = 753) MEAN CORPUSCULAR HEMOGLOBIN 29.0 pg 25.7-32.2 (BEAKER) (test code = 751) MEAN CORPUSCULAR HEMOGLOBIN CONC 34.4 GM/DL 32.3-36.5 (BEAKER) (test code = 752) RED CELL DISTRIBUTION WIDTH 13.0 % 11.6-14.4 (BEAKER) (test code = 412) PLATELET COUNT (BEAKER) (test 243 K/CU MM 150-450 code = 756) MEAN PLATELET VOLUME (BEAKER) 10.8 fL 9.4-12.4 (test code = 754) NUCLEATED RED BLOOD CELLS 0 /100 WBC 0-0 (BEAKER) (test code = 413) NEUTROPHILS RELATIVE PERCENT 77 % (BEAKER) (test code = 429) LYMPHOCYTES RELATIVE PERCENT 18 % (BEAKER) (test code = 430) MONOCYTES RELATIVE PERCENT 5 % (BEAKER) (test code = 431) EOSINOPHILS RELATIVE PERCENT 0 % (BEAKER) (test code = 432) BASOPHILS RELATIVE PERCENT 0 % (BEAKER) (test code = 437) NEUTROPHILS ABSOLUTE COUNT 8.53 K/ L 1.78-5.38 H (BEAKER) (test code = 670) LYMPHOCYTES ABSOLUTE COUNT 1.95 K/ L 1.32-3.57 (BEAKER) (test code = 414) MONOCYTES ABSOLUTE COUNT (BEAKER) 0.52 K/ L 0.30-0.82 (test code = 415) EOSINOPHILS ABSOLUTE COUNT 0.05 K/ L 0.04-0.54 (BEAKER) (test code = 416) BASOPHILS ABSOLUTE COUNT (BEAKER) 0.05 K/ L 0.01-0.08 (test code = 417) IMMATURE GRANULOCYTES-RELATIVE 1 % 0-1 PERCENT (BEAKER) (test code = 2801) CT, CTANGIO [id number] 17:20:00Unlisted Reason for Exam - Click Yes and Enter Reason Below->No [facility] : 1980 Sex: MFINAL REPORT CLINICAL HISTORY: Subarachnoid hemorrhage (SAH) suspected TECHNIQUE: Initially, noncontrast head CT images were performed. Contiguous contrast-enhanced axial images through the neck followed by axial images through the head with coronal and sagittal reformations to assess the arterial circulation. 3-D reconstructions were performed using a volume rendered technique separately on a workstation. This exam was performed according to the departmental dose optimization program which includes automated exposure control, adjustment of the mA and/or kV according to the patient size, and/or use of an iterative reconstruction technique. Stenosis evaluation reported in compliance with NASCET criteria. COMPARISON: None FINDINGS: CTA head:Please note that CTA isinherently insensitive in evaluating the cavernous and skullbase portions of the internal carotid arteries because of adjacent bone and venous opacification. There is small volume subarachnoid hemorrhage within the right sylvian fissure. No evidence of acute territorial infarct. There is no hydrocephalus or midline shift. The skull is intact. CTA demonstrates a large dilated draining vein within theright middle cranial fossa measuring up to 8 mm in diameter. No definite nidus is seen connecting this to the arterial system, although there is increased hazy vascularity in the region of the right MCA bifurcation. There is atherosclerosis in the left V4 segment causing mild focal stenosis. The rightvertebral artery is diminutive and terminates in PICA. No major branch vessel occlusion or high-grade focal stenosis. There is no evidence of intracranial aneurysm. The major intradural venous sinusesare patent. CTA neck:Great vessel origins: No occlusion or high-grade stenosis. Carotid arteries: No occlusion or high-grade stenosis. Vertebral arteries: No occlusion or high-grade stenosis. No fracture or suspicious osseous lesion. Cervical soft tissues are unremarkable. Visualized lung apices areclear. 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 Significant findings were relayed to Dr. Mccann at 5:10 PM on 12/29/2019. Signed: Gabby Dunn MDReport Verified Date/Time: 12/29/2019 17:20:10 CT, CAROTID, [id number] 17:20:00Unlisted Reason for Exam - Click Yes and Enter Reason Below->No [facility] : 1980 Sex: MFINAL REPORT CLINICAL HISTORY: Subarachnoid hemorrhage (SAH) suspected TECHNIQUE: Initially, noncontrast head CT images were performed. Contiguous contrast-enhanced axial images through the neck followed by axial images through the head with coronal and sagittal reformations to assess the arterial circulation. 3-D reconstructions were performed using a volume rendered technique separately on a workstation. This exam was performed according to the departmental dose optimization program which includes automated exposure control, adjustment of the mA and/or kV according to the patient size, and/or use of an iterative reconstruction technique. Stenosis evaluation reported in compliance with NASCET criteria. COMPARISON: None FINDINGS: CTA head:Please note that CTA isinherently insensitive in evaluating the cavernous and skullbase portions of the internal carotid arteries because of adjacent bone and venous opacification. There is small volume subarachnoid hemorrhage within the right sylvian fissure. No evidence of acute territorial infarct. There is no hydrocephalus or midline shift. The skull is intact. CTA demonstrates a large dilated draining vein within theright middle cranial fossa measuring up to 8 mm in diameter. No definite nidus is seen connecting this to the arterial system, although there is increased hazy vascularity in the region of the right MCA bifurcation. There is atherosclerosis in the left V4 segment causing mild focal stenosis. The rightvertebral artery is diminutive and terminates in PICA. No major branch vessel occlusion or high-grade focal stenosis. There is no evidence of intracranial aneurysm. The major intradural venous sinusesare patent. CTA neck:Great vessel origins: No occlusion or high-grade stenosis. Carotid arteries: No occlusion or high-grade stenosis. Vertebral arteries: No occlusion or high-grade stenosis. No fracture or suspicious osseous lesion. Cervical soft tissues are unremarkable. Visualized lung apices areclear. 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 Significant findings were relayed to Dr. Mccann at 5:10 PM on 12/29/2019. Signed: Gabby Dunn [facility] Verified Date/Time: 12/29/2019 17:20:10 [facility] [id number] 17:20:00Interface, External Ris In - 12/30/2019 1:15 PM CSTFINAL REPORT CLINICAL HISTORY: Subarachnoid hemorrhage (SAH) suspected TECHNIQUE: Initially, noncontrast head CT images were performed. Contiguous contrast-enhanced axial images through the neck followed by axial images throughthe head with coronal and sagittal reformations to assess the arterial circulation. 3-D reconstructio ns were performed using a volume rendered technique separately on a workstation. This exam was performed according to the departmental dose optimization program which includes automated exposure control, adjustment of the mA and/or kV according to the patient size, and/or use of an iterative reconstruction technique. Stenosis evaluation reported in compliance with NASCET criteria. COMPARISON: None FINDINGS: CTA head:Please note that CTA is inherently insensitive in evaluating the cavernous and skullbase portions of the internal carotid arteries because of adjacent bone and venous opacification. There is small volume subarachnoid hemorrhage within the right sylvian fissure. No evidence of acute territorial infarct. There is no hydrocephalus or midline shift. The skull is intact. CTA demonstratesa large dilated draining vein within the right middle cranial fossa measuring up to 8 mm in diameter. No definite nidus is seen connecting this to the arterial system, although there is increased hazy vascularity in the region of the right MCA bifurcation. There is atherosclerosis in the left V4 segment causing mild focal stenosis. The right vertebral artery is diminutive and terminates in PICA. No major branch vessel occlusion or high-grade focal stenosis. There is no evidence of intracranial aneurysm. The major intradural venous sinuses are patent. CTA neck:Great vessel origins: No occlusion orhigh-grade stenosis. Carotid arteries: No occlusion or high-grade stenosis. Vertebral arteries: No occlusion or high- grade stenosis. No fracture or suspicious osseous lesion. Cervical soft tissues areunremarkable. Visualized lung apices are clear. 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 Significant findings were relayed to Dr. Mccann at 5:10 PM on 12/29/2019. Signed: Gabby Dunn MDReport Verified Date/Time: 12/29/2019 17:20:10 [facility] [id number] 17:20:00Interface, External Ris In - 12/29/2019 5:22 PM CSTFINAL REPORT CLINICAL HISTORY: Subarachnoid hemorrhage (SAH) suspected TECHNIQUE: Initially, noncontrast head CT images were performed. Contiguous contrast-enhanced axial images through the neck followed by axial images throughthe head with coronal and sagittal reformations to assess the arterial circulation. 3-D reconstructio ns were performed using a volume rendered technique separately on a workstation. This exam was performed according to the departmental dose optimization program which includes automated exposure control, adjustment of the mA and/or kV according to the patient size, and/or use of an iterative reconstruction technique. Stenosis evaluation reported in compliance with NASCET criteria. COMPARISON: None FINDINGS: CTA head:Please note that CTA is inherently insensitive in evaluating the cavernous and skullbase portions of the internal carotid arteries because of adjacent bone and venous opacification. There is small volume subarachnoid hemorrhage within the right sylvian fissure. No evidence of acute territorial infarct. There is no hydrocephalus or midline shift. The skull is intact. CTA demonstratesa large dilated draining vein within the right middle cranial fossa measuring up to 8 mm in diameter. No definite nidus is seen connecting this to the arterial system, although there is increased hazy vascularity in the region of the right MCA bifurcation. There is atherosclerosis in the left V4 segment causing mild focal stenosis. The right vertebral artery is diminutive and terminates in PICA. No major branch vessel occlusion or high-grade focal stenosis. There is no evidence of intracranial aneurysm. The major intradural venous sinuses are patent. CTA neck:Great vessel origins: No occlusion orhigh-grade stenosis. Carotid arteries: No occlusion or high-grade stenosis. Vertebral arteries: No occlusion or high- grade stenosis. No fracture or suspicious osseous lesion. Cervical soft tissues areunremarkable. Visualized lung apices are clear. 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 Significant findings were relayed to Dr. Mccann at 5:10 PM on 12/29/2019. Signed: Gabby Dunn Verified Date/Time: 12/29/2019 17:20:10 [facility] - [id number] 00:00:00Ordered by an unspecified provider.[facility]
--- NOTE | 2020-04-29 08:54 | RAD REPORT ---
EXAM DESCRIPTION: RAD - Chest Single View - 04/29/2020 8:07 am CLINICAL HISTORY: COUGH, photophobia, abdominal pain and nausea COMPARISON: Portable December 2019 TECHNIQUE: AP portable chest image was obtained 04/29/2020 8:07 am . FINDINGS: No focal mass or consolidation. Heart, vasculature and lung markings are not outside of no rmal range for the portable exam and prominent body habitus. No measurable pleural effusion and no pn eumothorax. No acute bony abnormality seen. No acute aortic findings suspected. IMPRESSION: No acute cardiopulmonary process. No significant change from comparison study.
[2020-04-29] MEDS ORDERED: NA CHLORIDE 0.9% 1,000 ML ONE (08:58)
[2020-04-29] MEDS ORDERED: ONDANSETRON 4 MG/2 ML VIAL ONE (08:58)
[2020-04-29 09:09] LABS: Absolute Lymphocytes (CBC) 2.1 K/uL (0.7-4.9); Basophils % 0.5 % (0-1.3); Hematocrit 34.1 % (39.6-49.0); Lymphocytes % 21.4 % (15.3-44.8); MPV 9.3 fL (7.6-11.3); RBC Red Blood Cell Count 3.99 M/uL (4.33-5.43)
--- NOTE | 2020-04-29 09:40 | RAD REPORT ---
EXAM DESCRIPTION: CT - Head Brain Wo Cont - 04/29/2020 8:59 am CLINICAL HISTORY: Dizziness;Headache, photophobia history of brain aneurysm COMPARISON: Head Brain Wo Cont dated 12/29/2019; Brain Wo Cont dated 12/29/2019; Sup. Sag. Sinus naresh ed 12/29/2019 TECHNIQUE: Axial 5 mm thick images of the head were obtained without IV contrast. All CT scans are performed using dose optimization technique as appropriate and may include automated exposure control or mA/KV adjustment according to patient size. FINDINGS: No intracranial hemorrhage is present. No acute cortical based infarction. No mass effect or edema. No volume loss. Small focal area of decreased attenuation is present in the white matter of the right frontal parietal junction near ventricle. This is new from December. There is new focal di minished attenuation in the left cerebral hemisphere at the lateral margin of the left thalamus. Vent ricles are normal. The focal increased density near the right sylvian fissure on the December 2019 st udy is not identifiable on the current examination. Veins are prominent with increased density near t he anterior right temporal lobe matching prior imaging. Density matches the transverse sinuses. Dense calcifications are present at the vertebrobasilar junction. Mastoid air cells and visualized portions of the paranasal sinuses are clear. No acute bony findings. IMPRESSION: No intracranial hemorrhage, mass, edema or other emergent intracranial finding. Focal areas of diminished attenuation in the right frontoparietal junction white matter adjacent to t he left thalamus are new from December 2019. Although the patient is young, these may be old ischemi c injuries, possibly from a venous occlusive event detailed on the December 2019 imaging. Vasculitis or migraine headache etiologies are possible if there is matching clinical history.
--- NOTE | 2020-04-29 09:51 | RAD REPORT ---
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 Sagittal and axial reconstruction images were generated using MIP technique and reviewed. All CT scans are performed using dose optimization technique as appropriate and may include automated exposure control or mA/KV adjustment according to patient size. COMPARISON: CT head same date, MRV examination December 2019, MRI brain December 2019 FINDINGS: No arterial aneurysm or vascular malformation identified. The prominent right cerebral co rtical veins and possible enlarged thrombosed vein detailed December 2019 are not identifiable on thi s examination. No abnormal calcification or focal mass to suspect arterial side aneurysm. Patient has dense calcifications at the basilar -left vertebral junction. This does not cause significant lumina l narrowing. No similar calcifications elsewhere. No vasculitis findings. No stenosis or significant vascular process identifiable. No abnormal vascula rity in either orbit. Major venous sinuses are patent. No dilated or abnormal veins identifiable. No arterial occlusion. Left vertebral artery is dominant. The right vertebral artery appears to termi ria at the posteroinferior cerebellar artery as a normal anatomic variant. Provided history indicates cerebral aneurysm. There are no aneurysm coils or aneurysm clips present. IMPRESSION: As detailed above, CT angio head examination shows no acute or emergent finding. The prominent right cerebral cortical veins and questionable thrombus seen December 2019 are not evid ent or reproduced on this examination. The suspected old ischemic injuries in the right cerebral white matter and near the left thalamus are supplied by vessels too small for CTA resolution.
[2020-04-29 10:16] LABS: ALT/SGPT 32 U/L (12-78); AST/SGOT 12 U/L (15-37); Albumin 3.6 g/dL (3.4-5.0); Alkaline Phosphatase 95 U/L (45-117); BUN Blood Urea Nitrogen 23 mg/dL (7-18); Bicarbonate 25 mmol/L (21-32); Bilirubin Direct 0.1 mg/dL (0-0.2); Bilirubin Total 0.4 mg/dL (0.2-1.0); Glucose Level 124 mg/dL (74-106); Lipase 205 U/L (73-393); Magnesium 2.3 mg/dL (1.8-2.4); NT PRO-BNP 60 pg/mL (<125); Potassium 3.7 mmol/L (3.5-5.1); Protein, Total 7.2 g/dL (6.4-8.2); Sodium Level 139 mmol/L (136-145); Troponin (Emerg Dept Use Only) < 0.02 ng/mL (0.0-0.045)
--- NOTE | 2020-04-29 10:30 | EDPHYS ---
Physician Documentation [facility] Name: John Levine Age: 39 yrs Sex: Male : 1980 Arrival Date: 04/29/2020 Time: 07:06 Bed 6 Private MD: NATALIIA Physician Barron Khan HPI: 04/29 07:43 This 39 yrs old Male presents to ER via Ambulatory with complaints of kamila Headache, Nausea, Abdominal Pain. 07:43 The patient complains of pain to the top of head, forehead, right frontal area and kamila right side of forehead. The patient describes the headache as constant, a pressure. Onset: The symptoms/episode began/occurred last night, 1 day(s) ago. Associated signs and symptoms: Pertinent positives: nausea, vomiting. Severity of symptoms: At its worst the pain was moderate, in the emergency department the pain is unchanged. Headache History: The patient has had previous headaches and this one is different than previous episodes. The symptoms are alleviated by nothing. the symptoms are aggravated by nothing. The patient has experienced a previous episode, last year. Historical: - Allergies: 07:32 No Known Allergies; bb - Home Meds: 07:32 lisinopril-hctz [Active]; Insulin: Regular Sub-Q [Active]; multiple BP medications bb [Active]; - PMHx: 07:32 Hypertension; Diabetes - IDDM; ruptured brain aneurysm; bb - PSHx: 07:32 strabismus; Knee surgery; bb - Immunization history:: Adult Immunizations up to date. - Social history:: Smoking status: Patient denies any tobacco usage or history of. Patient/guardian denies using alcohol, street drugs. - Family history:: not pertinent. ROS: 07:43 Constitutional: Negative for fever, chills, and weight loss, Eyes: Negative for injury, kamila pain, redness, and discharge, ENT: Negative for injury, pain, and discharge, Neck: Negative for injury, pain, and swelling, Cardiovascular: Negative for chest pain, palpitations, and edema, Respiratory: Negative for shortness of breath, cough, wheezing, and pleuritic chest pain, Abdomen/GI: Negative for abdominal pain, nausea, vomiting, diarrhea, and constipation, Back: Negative for injury and pain, : Negative for injury, bleeding, discharge, and swelling, MS/Extremity: Negative for injury and deformity, Skin: Negative for injury, rash, and discoloration, Psych: Negative for depression, anxiety, suicide ideation, homicidal ideation, and hallucinations, Allergy/Immunology: Negative for hives, rash, and allergies, Endocrine: Negative for neck swelling, polydipsia, polyuria, polyphagia, and marked weight changes, Hematologic/Lymphatic: Negative for swollen nodes, abnormal bleeding, and unusual bruising. 07:43 Neuro: Positive for dizziness, headache. Exam: 07:43 Constitutional: This is a well developed, well nourished patient who is awake, alert, kamila and in no acute distress. Head/Face: Normocephalic, atraumatic. Eyes: Pupils equal round and reactive to light, extra-ocular motions intact. Lids and lashes normal. Conjunctiva and sclera are non-icteric and not injected. Cornea within normal limits. Periorbital areas with no swelling, redness, or edema. ENT: Nares patent. No nasal discharge, no septal abnormalities noted. Tympanic membranes are normal and external auditory canals are clear. Oropharynx with no redness, swelling, or masses, exudates, or evidence of obstruction, uvula midline. Mucous membranes moist. Neck: Trachea midline, no thyromegaly or masses palpated, and no cervical lymphadenopathy. Supple, full range of motion without nuchal rigidity, or vertebral point tenderness. No Meningismus. Chest/axilla: Normal chest wall appearance and motion. Nontender with no deformity. No lesions are appreciated. Cardiovascular: Regular rate and rhythm with a normal S1 and S2. No gallops, murmurs, or rubs. Normal PMI, no JVD. No pulse deficits. Respiratory: Lungs have equal breath sounds bilaterally, clear to auscultation and percussion. No rales, rhonchi or wheezes noted. No increased work of breathing, no retractions or nasal flaring. Abdomen/GI: Soft, non-tender, with normal bowel sounds. No distension or tympany. No guarding or rebound. No evidence of tenderness throughout. Back: No spinal tenderness. No costovertebral tenderness. Full range of motion. Male : Normal genitalia with no discharge or lesions. Skin: Warm, dry with normal turgor. Normal color with no rashes, no lesions, and no evidence of cellulitis. MS/ Extremity: Pulses equal, no cyanosis. Neurovascular intact. Full, normal range of motion. Neuro: Awake and alert, GCS 15, oriented to person, place, time, and situation. Cranial nerves II-XII grossly intact. Motor strength 5/5 in all extremities. Sensory grossly intact. Cerebellar exam normal. Normal gait. Psych: Awake, alert, with orientation to person, place and time. Behavior, mood, and affect are within normal limits. 09:15 ECG was reviewed by the Attending Physician. [facility] Vital Signs: 07:28 BP 123 / 69; Pulse 77; Resp 16 S; Temp 97.9(O); Pulse Ox 95% on R/A; Weight 120.2 kg bb (R); Height 5 ft. 11 in. (180.34 cm) (R); Pain 7/10; 07:28 Body Mass Index 36.96 (120.20 kg, 180.34 cm) bb [place] Coma Score: 07:46 Eye Response: spontaneous(4). Verbal Response: oriented(5). Motor Response: obeys [facility] commands(6). Total: 15. MDM: 07:22 Patient medically screened. kamila 07:46 Differential diagnosis: cerebral vascular accident, epidural hematoma, hypoglycemia, kamila hyponatremia, intracerebral hemorrhage, migraine, subarachnoid bleed, subdural hematoma, temporal arteritis, tension headache, trigeminal neuralgia, vasomotor headache. Data reviewed: vital signs, nurses notes. Data interpreted: athletic monitor: rate is 77 beats/min, rhythm is normal sinus rhythm, regular, Pulse oximetry: on room air is 95 %. Test interpretation: by ED physician or midlevel provider: ECG, plain radiologic studies. Counseling: I had a detailed discussion with the patient and/or guardian regarding: the historical points, exam findings, and any diagnostic results supporting the discharge/admit diagnosis, the presence of at least one elevated blood pressure reading (>120/80) during this emergency department visit, lab results, radiology results. 04/29 07:43 Order name: Basic Metabolic Panel; Complete Time: 10:27 kamila 04/29 07:43 Order name: CBC with Diff; Complete Time: 09:39 [facility] 04/29 07:43 Order name: LFT's; Complete Time: 10:27 [facility] 04/29 07:43 Order name: Magnesium; Complete Time: 10:27 [facility] 04/29 07:43 Order name: NT PRO-BNP; Complete Time: 10:27 [facility] 04/29 07:43 Order name: PT-INR; Complete Time: 09:39 [facility] 04/29 07:43 Order name: Troponin (emerg Dept Use Only); Complete Time: 10:27 [facility] 04/29 07:43 Order name: XRAY Chest (1 view); Complete Time: 09:39 [facility] 04/29 07:43 Order name: Lipase; Complete Time: 10:27 [facility] 04/29 07:43 Order name: CT Head Brain wo Cont; Complete Time: 10:27 [facility] 04/29 07:49 Order name: CT Head Angio; Complete Time: 10:27 [facility] 04/29 08:58 Order name: CREATININE WHOLE BLOOD; Complete Time: 09:39 [facility] 04/29 07:43 Order name: EKG; Complete Time: 07:44 [facility] 04/29 07:43 Order name: Cardiac monitoring; Complete Time: 11:08 [facility] 04/29 07:43 Order name: EKG - Nurse/Tech; Complete Time: 11:08 [facility] 04/29 07:43 Order name: IV Saline Lock; Complete Time: 08:39 [facility] 04/29 07:43 Order name: Labs collected and sent; Complete Time: 08:39 [facility] 04/29 07:43 Order name: O2 Per Protocol; Complete Time: 08:39 [facility] 04/29 07:43 Order name: O2 Sat Monitoring; Complete Time: 08:39 [facility] EC:15 Rate is 69 beats/min. Rhythm is regular. QRS Belle is Normal. FL interval is normal. QRS kamila interval is normal. QT interval is normal. No Q waves. T waves are Normal. No ST changes noted. Clinical impression: NSR w/ Non-specific ST/T Changes and No evidence of ischemia. Interpreted by me. Reviewed by me. Administered Medications: 08:50 Drug: NS 0.9% 1000 ml Route: IV; Rate: 125 ml/hr; Site: right antecubital; ss 11:08 Follow up: IV Status: IV converted to saline lock ss 08:50 Drug: Zofran (Ondansetron) 4 mg Route: IVP; Site: right antecubital; ss 11:08 Follow up: Response: No adverse reaction ss Disposition: 04/29/20 10:29 Discharged to Home. Impression: Headache, Essential (primary) hypertension. - Condition is Stable. - Discharge Instructions: General Headache Without Cause, Migraine Headache, Hypertension, Hypertension, Whkn-il-Bvvs, Migraine Headache, [id number], General Headache Without Cause, Loyl-vw-Nexe. - Prescriptions for Zofran 4 mg Oral Tablet - take 1 tablet by ORAL route every 12 hours As needed; 20 tablet. - Medication Reconciliation Form, Thank You Letter, Antibiotic Education, Prescription Opioid Use, Work release form form. - Follow up: Private Physician; When: 2 - 3 days; Reason: Recheck today's complaints, Continuance of care, Re-evaluation by your physician. Follow up: Otoniel Veras; When: 2 - 3 days; Reason: Recheck today's complaints, Re-evaluation by your physician. - Problem is new. - Symptoms have improved. Signatures: Dispatcher [employer] EDMS Barron Khan MD MD cha Ballard, Brenda, RN RN bb Smirch, Shelby, RN RN ss Corrections: (The following items were deleted from the chart) 11:07 07:43 Urine Dipstick-Ancillary ordered. kamila quigley 11:37 10:29 04/29/2020 10:29 Discharged to Home. Impression: Headache; Essential (primary) ss hypertension. Condition is Stable. Discharge Instructions: General Headache Without Cause, Migraine Headache, Migraine Headache, Jhkd-ui-Yseo, General Headache Without Cause, Zvbo-ly-Cdeu, Hypertension, Hypertension, Dhaz-xq-Mlke. Prescriptions for Zofran 4 mg Oral Tablet - take 1 tablet by ORAL route every 12 hours As needed; 20 tablet. and Forms are Medication Reconciliation Form, Thank You Letter, Antibiotic Education, Prescription Opioid Use. Follow up: Private Physician; When: 2 - 3 days; Reason: Recheck today's complaints, Continuance of care, Re-evaluation by your physician. Follow up: Otoniel Veras; When: 2 - 3 days; Reason: Recheck today's complaints, Re-evaluation by your physician. Problem is new. Symptoms have improved. kamila
--- NOTE | 2020-04-29 10:30 | ER ---
Nurse's Notes [facility] Name: John Levine Age: 39 yrs Sex: Male : 1980 Arrival Date: 04/29/2020 Time: 07:06 Bed 6 Private MD: Diagnosis: Headache;Essential (primary) hypertension Presentation: 04/29 07:28 Chief complaint: Patient states: he started having a headache last night with bb photophobia then this morning he started having abdominal pain and nausea. Coronavirus screen: At this time, the client does not indicate any symptoms associated with coronavirus-19. Ebola Screen: No symptoms or risks identified at this time. Initial Sepsis Screen: Does the patient meet any 2 criteria? No. Patient's initial sepsis screen is negative. Does the patient have a suspected source of infection? No. Patient's initial sepsis screen is negative. Risk Assessment: Do you want to hurt yourself or someone else? Patient reports no desire to harm self or others. Onset of symptoms was April 28, 2020. 07:28 Method Of Arrival: Ambulatory bb 07:28 Acuity: [place] 3 bb Triage Assessment: 07:32 Headache History: The patient has had previous headaches. General: Appears in no bb apparent distress. uncomfortable, Behavior is calm, cooperative. Pain: Complains of pain in head and abdomen Pain at worst was 7 out of 10 on a pain scale. Pain began 1 day ago. Also complains of photophobia. Neuro: Level of Consciousness is awake, alert, obeys commands, Oriented to person, place, time, situation. Respiratory: Respiratory effort is even, unlabored, Respiratory pattern is regular. GI: Reports lower abdominal pain, nausea. Derm: Skin is pink, warm \T\ dry. Musculoskeletal: Circulation, motion, and sensation intact. Historical: - Allergies: 07:32 No Known Allergies; bb - Home Meds: 07:32 lisinopril-hctz [Active]; Insulin: Regular Sub-Q [Active]; multiple BP medications bb [Active]; - PMHx: 07:32 Hypertension; Diabetes - IDDM; ruptured brain aneurysm; bb - PSHx: 07:32 strabismus; Knee surgery; bb - Immunization history:: Adult Immunizations up to date. - Social history:: Smoking status: Patient denies any tobacco usage or history of. Patient/guardian denies using alcohol, street drugs. - Family history:: not pertinent. Screenin:00 Abuse screen: Denies threats or abuse. Denies injuries from another. Nutritional ss screening: No deficits noted. Tuberculosis screening: Never had TB. Fall Risk None identified. Assessment: 08:00 General: Appears in no apparent distress. comfortable, Behavior is calm, cooperative, ss Denies fever, feeling ill, fatigue, chills. Pain: Complains of pain in right side of forehead and right frontal area and forehead and top of head Pain currently is 7 out of 10 on a pain scale. Quality of pain is described as aching, Pain began yesterday Is continuous. Neuro: Level of Consciousness is awake, alert, obeys commands, Oriented to person, place, time, situation, Spa Consultant are equal bilaterally Moves all extremities. Full function Gait is steady, Speech is normal, Facial symmetry appears normal, Pupils are PERRLA. Cardiovascular: Capillary refill < 3 seconds is brisk in bilateral fingers. Respiratory: Airway is patent Respiratory effort is even, unlabored, Respiratory pattern is regular, symmetrical. GI: Reports nausea, Patient currently denies diarrhea, vomiting. : No signs and/or symptoms were reported regarding the genitourinary system. EENT: Nares are clear Oral mucosa is moist. Derm: Skin is intact, is healthy with good turgor, Skin is dry, Skin is pink, warm \T\ dry. normal. Musculoskeletal: Circulation, motion, and sensation intact. Range of motion: intact in all extremities, Swelling absent. 09:00 Reassessment: Patient appears in no apparent distress at this time. Patient and/or ss family updated on plan of care and expected duration. Pain level reassessed. 10:00 Reassessment: No changes from previously documented assessment. ss 11:15 Reassessment: Patient appears in no apparent distress at this time. Patient and/or ss family updated on plan of care and expected duration. Pain level reassessed. Patient is alert, oriented x 3, equal unlabored respirations, skin warm/dry/pink. Vital Signs: 07:28 BP 123 / 69; Pulse 77; Resp 16 S; Temp 97.9(O); Pulse Ox 95% on R/A; Weight 120.2 kg bb (R); Height 5 ft. 11 in. (180.34 cm) (R); Pain 7/10; 07:28 Body Mass Index 36.96 (120.20 kg, 180.34 cm) bb [place] Coma Score: 07:46 Eye Response: spontaneous(4). Verbal Response: oriented(5). Motor Response: obeys kamila commands(6). Total: 15. ED Course: 07:06 Patient arrived in ED. mr 07:22 Barron Khan MD is Attending Physician. kamila 07:30 Triage completed. bb 07:32 Arm band placed on Patient placed in an exam room, on a stretcher, on pulse oximetry. bb 08:00 Patient has correct armband on for positive identification. Bed in low position. Call ss light in reach. Side rails up X 1. Pulse ox on. NIBP on. 08:07 XRAY Chest (1 view) In Process Unspecified. EDMS 08:39 Henrietta Velez, EMMANUEL is Primary Nurse. ss 08:40 Inserted saline lock: 20 gauge in right antecubital area, using aseptic technique. ss Blood collected. Patient maintains SpO2 saturation greater than 95% on room air. 09:00 CT Head Brain wo Cont In Process Unspecified. EDMS 09:02 CT Head Angio In Process Unspecified. EDMS 10:29 Otoniel Veras MD is Referral Physician. [facility] 11:37 No provider procedures requiring assistance completed. IV discontinued, intact, ss bleeding controlled, No redness/swelling at site. Pressure dressing applied. Administered Medications: 08:50 Drug: NS 0.9% 1000 ml Route: IV; Rate: 125 ml/hr; Site: right antecubital; ss 11:08 Follow up: IV Status: IV converted to saline lock ss 08:50 Drug: Zofran (Ondansetron) 4 mg Route: IVP; Site: right antecubital; ss 11:08 Follow up: Response: No adverse reaction ss Outcome: 10:29 Discharge ordered by . kamila 11:37 Discharged to home ambulatory. ss 11:37 Condition: good 11:37 Discharge instructions given to patient, Instructed on discharge instructions, follow up and referral plans. Demonstrated understanding of instructions, follow-up care. 11:37 Patient left the ED. ss Signatures: Dispatcher [employer] EDSC Barron Khan MD MD cha Rivera, Mary Kaur Haynes, RN RN bb Henrietta Velez, RN RN ss
[2020-04-30 11:38] VITALS: BP 123/69; TEMP 97.9; O2SAT 95
== END 2020-04-29 11:37 | disposition home or self-care (01) ==
LOC: ER 07:03
DX: I10 Essential (primary) hypertension (principal); E11.9 Type 2 diabetes mellitus without complications; Z79.4 Long term (current) use of insulin
CPT/HCPCS: 93005; 85025; 80048; 36415; 83735; 85610; 82565; 80076; 84484; 83690; 83880; 70450; 70496; 71045; Q9967; J7030; J2405; 96361; 96374; 99284

== ENCOUNTER 2020-07-28 06:09 | Emergency (ER) | payer OTHER ==
[2020-07-28] MEDS ORDERED: KETOROLAC 30 MG/ML INJ ONE (07:30)
--- NOTE | 2020-07-28 08:01 | RAD REPORT ---
EXAM DESCRIPTION: CT - C Spine Wo Con - 07/28/2020 7:28 am CLINICAL HISTORY: Neck and shoulder pain, history brain aneurysm COMPARISON: CT angio April 2020 TECHNIQUE: Axial 2 mm thick images of the cervical spine were obtained with sagittal and coronal rec onstruction images generated and reviewed. All CT scans are performed using dose optimization technique as appropriate and may include automated exposure control or mA/KV adjustment according to patient size. FINDINGS: Cervical body height and alignment are normal. No disk space narrowing. No fracture or acu te bony abnormality. Mastoid air cells are clear. Partially visualized paranasal sinuses also clear e xcept for mucosal thickening in the right side sphenoid sinus. No globe or orbital content abnormalit y. No paraspinal mass or hematoma. Central canal detail is too inherently limited to provide for any accurate assessment of possible dis c bulge or herniation. No gross abnormality is seen. Concerns for disc herniation, central canal abno rmality or cord abnormality can be addressed with follow-up outpatient MRI imaging. Tubular calcification pattern near the foramen magnum is advanced for age calcifications at the left vertebral artery -basilar artery junction. No change since the April study. IMPRESSION: Negative CT cervical spine examination for acute finding. Nonacute findings detailed [place] dy of the report. Central canal detail is inherently limited. No accurate assessment can be made of disc bulge or herni ation.
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
--- NOTE | 2020-07-28 08:09 | ER ---
Nurse's Notes [facility] Name: John Levine Age: 39 yrs Sex: Male : 1980 Arrival Date: 07/28/2020 Time: 06:20 Bed 13 Private MD: Diagnosis: Radiculopathy, cervical region Presentation: 07/28 06:41 Chief complaint: Patient states: he has been having some shoulder/neck pain for one bb month but last night the pain got worse now 8/10. Coronavirus screen: At this time, the client does not indicate any symptoms associated with coronavirus-19. Ebola Screen: No symptoms or risks identified at this time. Initial Sepsis Screen: Does the patient meet any 2 criteria? No. Patient's initial sepsis screen is negative. Does the patient have a suspected source of infection? No. Patient's initial sepsis screen is negative. Risk Assessment: Do you want to hurt yourself or someone else? Patient reports no desire to harm self or others. Onset of symptoms was July 28, 2020. 06:41 Method Of Arrival: Ambulatory bb 06:41 Acuity: [place] 3 bb Historical: - Allergies: 06:45 No Known Allergies; bb - Home Meds: 06:45 Insulin: Regular Sub-Q [Active]; lisinopril-hctz [Active]; multiple BP medications bb [Active]; - PMHx: 06:45 Diabetes - IDDM; Hypertension; ruptured brain aneurysm; bb 06:46 CVA; bb - PSHx: 06:45 Strabismus; bb - Immunization history:: Adult Immunizations up to date, Client reports receiving the 2nd dose of the Covid vaccine. - Social history:: Smoking status: Patient denies any tobacco usage or history of. Patient/guardian denies using alcohol, street drugs. Screenin:03 Abuse screen: Denies threats or abuse. Nutritional screening: No deficits noted. rb3 Tuberculosis screening: No symptoms or risk factors identified. Fall Risk None identified. Assessment: 06:46 General: Appears in no apparent distress. comfortable, Behavior is calm, cooperative, cr4 appropriate for age. Pain: Complains of pain in right neck/ shoulder pain Pain radiates to right upper back Pain currently is 8 out of 10 on a pain scale. at worst was 9 out of 10 on a pain scale. Quality of pain is described as burning, aching, Pain began started one month ago, but became worse yesterday. Aggravated by increased activity, use of right arm. Neuro: Level of Consciousness is awake, alert, obeys commands, Oriented to person, place, time, situation, Appropriate for age Reports numbness in right fingers since cva. Denies weakness blurred vision dizziness. Cardiovascular: Denies chest pain, lightheadedness, shortness of breath. Respiratory: No deficits noted. Airway is patent Trachea midline Respiratory effort is even, unlabored. GI: No signs and/or symptoms were reported involving the gastrointestinal system. : No signs and/or symptoms were reported regarding the genitourinary system. EENT: No signs and/or symptoms were reported regarding the EENT system. Derm: No deficits noted. No signs and/or symptoms reported regarding the dermatologic system. Musculoskeletal: Capillary refill < 3 seconds, Range of motion: intact in all extremities, Reports pain in shoulder upper back increased with activity and right arm movement. 07:03 General: Appears in no apparent distress. comfortable, Behavior is calm, cooperative. rb3 Pain: Complains of pain in right neck and shouler Pain currently is 8 out of 10 on a pain scale. Neuro: Level of Consciousness is awake, alert, obeys commands, Oriented to person, place, time, situation. Neuro: Reports numbness in right fingers. Cardiovascular: Patient's skin is warm and dry. Respiratory: Airway is patent Respiratory effort is even, unlabored, Respiratory pattern is regular, symmetrical. Musculoskeletal: Capillary refill < 3 seconds, Range of motion: intact in all extremities. 08:17 Reassessment: Patient is alert, oriented x 3, equal unlabored respirations, skin aa5 warm/dry/pink. Vital Signs: 06:41 BP 143 / 91; Pulse 83; Resp 16 S; Temp 97.8(O); Pulse Ox 99% on R/A; Weight 117.03 kg bb (R); Height 5 ft. 11 in. (180.34 cm) (R); Pain 8/10; 08:00 BP 119 / 64; Pulse 65; Resp 17; Pulse Ox 96% ; rb3 06:41 Body Mass Index 35.98 (117.03 kg, 180.34 cm) edna ED Course: 06:20 Patient arrived in ED. bp1 06:44 Triage completed. bb 06:45 Arm band placed on Patient placed in an exam room, on a stretcher, on pulse oximetry. bb 06:46 Carey Hollis, RN is Primary Nurse. cr4 06:47 Stanton Hassan MD is Attending Physician. [facility] 07:03 Patient has correct armband on for positive identification. Bed in low position. Call rb3 light in reach. Side rails up X 1. Pulse ox on. NIBP on. 07:19 Attending Physician role handed off by Stanton Hassan MD rn 07:19 Artem Hendricks MD is Attending Physician. rn 07:28 CT C Spine In Process Unspecified. EDMS 08:17 No provider procedures requiring assistance completed. Patient did not have IV access aa5 during this emergency room visit. Administered Medications: 07:14 Drug: TORadol (ketorolac) 60 mg Route: IM; Site: right ventrogluteal; rb3 08:17 Follow up: Response: No adverse reaction aa5 Outcome: 08:09 Discharge ordered by MD. rn 08:17 Discharged to home ambulatory. aa5 08:17 Condition: stable 08:17 Discharge instructions given to patient, Instructed on discharge instructions, follow up and referral plans. medication usage, Demonstrated understanding of instructions, follow-up care, medications, Prescriptions given X 1. 08:18 Patient left the ED. aa5 Signatures: Dispatcher [employer] EDMS Kaur Haynes RN EMMANUEL bb Carey Hollis, RN RN cr4 Artem Hendricks MD MD rn Calderon, Audri RN RN aa5 Lizbet Ennis [facility] Stanton Hassan MD MD [facility] Melina Hannon, RN RN rb3
[2020-07-28 08:22] VITALS: BP 143/91; TEMP 97.8; O2SAT 99
== END 2020-07-28 08:18 | disposition home or self-care (01) ==
LOC: ER 06:09
DX: M54.12 Radiculopathy, cervical region (principal); E11.9 Type 2 diabetes mellitus without complications; I10 Essential (primary) hypertension; Z79.4 Long term (current) use of insulin
CPT/HCPCS: 72125; 96372; 99284

== ENCOUNTER → 2023-03-05 | Emergency (ER) | payer OTHER, BC ==
[~2023-03-05] MED LIST: CYCLOBENZAPRINE 10 MG TAB ONE; KETOROLAC 30 MG/ML INJ ONE
[2023-03-05 20:17] LABS: Specific Gravity > 1.030 (1.005-1.030); Urine Bacteria None Seen /HPF (<20); Urine Bilirubin NEGATIVE (Negative); Urine Blood Negative (Negative); Urine Clarity Clear (Clear); Urine Color Light-Yellow (Yellow); Urine Glucose NEGATIVE (Negative); Urine Protein TRACE (Negative); Urine RBC <5 /HPF (None Seen); Urine Urobilinogen Normal (Normal); Urine pH 6.5 (5.0-7.0)
[2023-03-05 20:19] LABS: Hematocrit 39.2 % (39.6-49.0); Lymphocytes % 20.4 % (15.3-44.8); MCV 85.5 fL (80-100); MPV 8.8 fL (7.6-11.3); Platelets 264 thou/uL (152-406); RBC Red Blood Cell Count 4.58 M/uL (4.33-5.43)
[2023-03-05 20:26] LABS: Potassium 3.8 mEq/L (3.5-5.1)
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
[2023-03-06 06:09] VITALS: O2SAT 98
[2023-03-06 06:22] VITALS: BP 122/86; TEMP 98.6
== END ==
LOC: ER 18:30
DX: S29.9XXA Unspecified injury of thorax, initial encounter (principal); R07.9 Chest pain, unspecified; M54.9 Dorsalgia, unspecified; V43.52XA Car driver injured in collision with other type car in traffic accident, initial encounter; Y93.89 Activity, other specified; Y92.410 Unspecified street and highway as the place of occurrence of the external cause; I10 Essential (primary) hypertension; E11.8 Type 2 diabetes mellitus with unspecified complications; Z79.4 Long term (current) use of insulin; Z86.73 Personal history of transient ischemic attack (TIA), and cerebral infarction without residual deficits
CPT/HCPCS: 85025; 81001; 80048; 36415; 70450; 72125; 71260; 74177; 96374; 99284; Q9967